=== PATIENT | male | born 1945 | race Two or more races ===

== ENCOUNTER 2017-01-29 19:43 | Inpatient (IN) | payer MEDICARE ==
[~2017-01-29] VITALS: Ht 182.9 cm; Wt 65.3 kg
--- NOTE | 2017-01-29 20:45 | NUR ---
ADMITTED A 71 Y/O WHITE MALE FROM [facility], ON 5150 DTO AND GD, BASED ON HOLD, PATIENT IS CONFUSED, DISORGANIZED, DISORIENTED, POOR HISTORIAN, ERRATIC AND AGGRESSIVE BEHAVIOR. PATIENT ADMITTING DX. PSYCHOSIS AND MEDICAL DX. HPTN, HYPERLIPIDEMIA, HEP C AND IRON DEFICIENCY ANEMIA. UPON FACE TO FACE EVALUATION, PATIENT APPEARED CONFUSED, DISORIENTED, DISORGANIZED, FOCUSED ON WANTING TO GO HOME, AMBULATORY AND WALKING ON THE HALLWAY, AGGRESSIVE, COMBATIVE, VERY UNCOOPERATIVE, REFUSED BODY CHECK, REFUSED V/S CHECKING. PATIENT WAS VERY GUARDED AND PARANOID. NO SOB, NO ACUTE DISTRESS, BREATHING EVEN AND UNLABORED, NO S/S OF PAIN AND DISCOMFORT. HARD TO REDIRECT THE PATIENT AND ORIENTED TO REALITY. ALL BELONGINGS INSPECTED. NO FAMILY ON FILE TO BE INFORMED. NOTIFIED DR. EVANS AND DR. DUGAN TO RECONCILE THE MEDICATION. WILL CONTINUE TO MONITOR [id number] FOR SAFETY
[2017-01-29] MEDS ORDERED: MAG HYDROX/AL HYDROX/SIMETH 30 ML UDC PO PRN (21:00)
[2017-01-29] MEDS ORDERED: MAGNESIUM HYDROXIDE 30 ML UDC PO PRN (21:00)
[2017-01-29] MEDS ORDERED: QUET25TA PO ×2 (23:38)
[2017-01-29] MEDS ORDERED: DONE10TA44 PO (23:38)
[2017-01-29] MEDS ORDERED: ROSU10TA25 PO (23:38)
[2017-01-29] MEDS ORDERED: TAMS0.4C34 PO (23:38)
[2017-01-29] MEDS ORDERED: GUAI5SYR PO (23:38)
[2017-01-29] MEDS ORDERED: LACT10SO PO (23:38)
[2017-01-29] MEDS ORDERED: RIFA550T PO (23:38)
[2017-01-30] MEDS ORDERED: TEMAZEPAM 7.5 MG CAPSULE ONE (00:58)
[2017-01-30] MEDS: TEMAZEPAM 7.5 MG CAPSULE PO PRN (01:09)
[2017-01-30 07:56] LABS: ALANINE AMINOTRANSFERASE 40 U/L (12-78); ALBUMIN 3.3 g/dL (3.4-5.0); ALKALINE PHOSPHATASE 84 U/L (46-116); ASPARTATE AMINOTRANSFERASE 48 U/L (15-37); BILIRUBIN,TOTAL 0.4 mg/dL (0.2-1.0); CALCIUM, SERUM 9.7 mg/dL (8.5-10.1); CARBON DIOXIDE 28 mmol/L (21-32); CHLORIDE 106 mmol/L (98-107); CREATININE 1.9 mg/dL (0.6-1.3); GLUCOSE 108 mg/dL (74-106); POTASSIUM 3.6 mmol/L (3.5-5.1); SODIUM SERUM 142 mmol/L (136-145); TOTAL PROTEIN, SERUM 7.2 g/dL (6.4-8.2); UREA NITROGEN, BLOOD 16 mg/dL (7-18)
[2017-01-30] MEDS: LORAZEPAM 0.5 MG TABLET PO PRN (11:20)
--- NOTE | 2017-01-30 11:33 | NUR ---
RN-CO: Patient is going from room to room, touching patient's belongings. Needs constant redirections. 1:1 sitter ordered for safety. Patient is also high fall risk.
[2017-01-30 12:57] LABS: CHOLESTEROL 164 mg/dL (<200); HDL CHOLESTEROL 41 mg/dL (40-60); LDL 95 mg/dL (0-99); TRIGLYCERIDES 145 mg/dL (30-150)
--- NOTE | 2017-01-30 14:21 | NUR ---
JUAN DIEGOCO: SEEN AND EXAMINED BY DR MERRITT.
[2017-01-30 16:10] VITALS: BP 127/86
[2017-01-30] MEDS: RIFAXIMIN 550 MG TABLET PO SCH (17:28)
[2017-01-30] MEDS: LACTULOSE 10 G/15 ML UDC (PYXIS) PO SCH (17:30)
[2017-01-30] MEDS: QUETIAPINE FUMARATE 25 MG TABLET PO SCH (17:31)
[2017-01-30] MEDS: DIVALPROEX SODIUM 250 MG TABLET.DR PO SCH (17:31)
[2017-01-30 19:47] VITALS: BP 120/83
[2017-01-30] MEDS: TAMSULOSIN 0.4 MG CAP.SR.24H PO SCH (21:47)
--- NOTE | 2017-01-31 00:49 | NUR ---
Patient in bed most of the evening no agitation noted calm and cooprative 1:1 sitter by the bedside cont to monitor.
--- NOTE | 2017-01-31 07:30 | NUR ---
RN NOTE PATIENT HAD FALL NEAR DOORWAY OF ROOM. PATIENT WAS WALKING AND TRIPPED. VITALS TAKE BP 93/65. PATIENT ASSESSED, PATIENT HAS SKIN TEAR NOTED ON LEFT UPPER FOREARM/ELBOW AREA. SKIN TEAR CLEANED, AND COVERED WITH GAUZE. PATIENT NOW IN BED RESTING Addendum: 01/31/17 at 0839 by CAM BURROUGHS RN [id number]
--- NOTE | 2017-01-31 08:28 | NUR ---
CALLED MILAGRO PRADHAN AT [phone] PERSON TO NOTIFY IN THE FACE SHEET AND WAS NOTIFIED ABOUT THE FALL INCIDENT.
[2017-01-31] MEDS: QUETIAPINE FUMARATE 25 MG TABLET PO SCH ×3 (10:41→17:33)
[2017-01-31] MEDS: LACTULOSE 10 G/15 ML UDC (PYXIS) PO SCH ×2 (10:41→17:26)
[2017-01-31] MEDS: DIVALPROEX SODIUM 250 MG TABLET.DR PO SCH ×3 (10:42→17:33)
[2017-01-31] MEDS: RIFAXIMIN 550 MG TABLET PO SCH ×2 (10:42→17:26)
--- NOTE | 2017-01-31 11:19 | NUR ---
DR MERRITT MADE AWARE OF PT'S FALL WHICH RESULTED IN A SKIN TEAR. HEAD TO TOE ASSESSMENT COMPLETED. NEURO CHECK COMPLETED. INCIDENT REPORT COMPLETED BY PRIOR NURSE. PT REMAINS AT BASELINE. PT DENIES ANY PAIN OR DISCOMFORT. PER DR. MERRITT "ORDER TRIPLE ABX BID AND CLEANSE SKIN TEAR". NO XRAYS ORDERED AT THIS TIME. WILL CARRY OUT ORDERS AND CONTINUE TO MONITOR.
--- NOTE | 2017-01-31 12:04 | NUR ---
DR. MARIE COVERING FOR DR. EVANS MADE AWARE OF THE FALL INCIDENT.
[2017-01-31] MEDS: NEOMY SULF/BACITRAC ZN/POLY 15 GM TUBE TP SCH ×2 (12:19→17:24)
[2017-01-31 16:00] VITALS: BP 115/61
[2017-01-31 20:00] VITALS: BP 122/56
[2017-01-31] MEDS: ATORVASTATIN 10 MG TABLET PO SCH (22:59)
[2017-01-31] MEDS: TAMSULOSIN 0.4 MG CAP.SR.24H PO SCH (22:59)
[2017-02-01] MEDS: NEOMY SULF/BACITRAC ZN/POLY 15 GM TUBE TP SCH ×2 (06:43→16:24)
[2017-02-01 08:00] VITALS: BP 126/67
[2017-02-01] MEDS: LACTULOSE 10 G/15 ML UDC (PYXIS) PO SCH ×2 (08:22→16:28)
[2017-02-01] MEDS: RIFAXIMIN 550 MG TABLET PO SCH ×2 (08:23→16:28)
[2017-02-01] MEDS: QUETIAPINE FUMARATE 25 MG TABLET PO SCH ×3 (08:23→16:28)
[2017-02-01] MEDS: DIVALPROEX SODIUM 125 MG CAP.SPRINK PO SCH ×3 (08:36→16:28)
[2017-02-01 11:35] LABS: EOSINOPHILS # (AUTO) 0.1 /CMM (0.0-0.7); EOSINOPHILS % (AUTO) 0.7 % (0.0-6.0); HEMATOCRIT 27 % (39-51); HEMOGLOBIN 8.7 g/dL (13.5-17.5); LYMPHOCYTES # (AUTO) 0.5 /CMM (0.8-4.8); LYMPHOCYTES % (AUTO) 4.5 % (20.0-44.0); MEAN CORPUSCULAR HEMOGLOBIN 33 PG (26.0-33.0); MEAN CORPUSCULAR HGB CONC 33 g/dl (31.0-36.0); MEAN CORPUSCULAR VOLUME 101 fL (80-96); MONOCYTES # (AUTO) 0.9 /CMM (0.1-1.30); MONOCYTES % (AUTO) 8.9 % (2.0-12.0); NEUTROPHILS # (AUTO) 8.8 /CMM (1.8-8.9); NEUTROPHILS % (AUTO) 85.9 % (43.0-81.0); PLATELET COUNT (AUTO) 241 /CMM (150-450); RDW COEFFICIENT OF VARIATION 15.1 (11.5-15.0); RED BLOOD CELL COUNT(AUTO) 2.64 MIL/uL (4.5-6.0); WHITE BLOOD COUNT (AUTO) 10.3 K/uL (4.3-11.0)
[2017-02-01 12:25] LABS: CALCIUM, SERUM 9.4 mg/dL (8.5-10.1); CARBON DIOXIDE 27 mmol/L (21-32); CHLORIDE 111 mmol/L (98-107); CREATININE 1.8 mg/dL (0.6-1.3); GLUCOSE 117 mg/dL (74-106); MAGNESIUM 1.8 mg/dL (1.8-2.4); PHOSPHORUS 2.8 mg/dL (2.5-4.9); POTASSIUM 3.3 mmol/L (3.5-5.1); SODIUM SERUM 146 mmol/L (136-145); UREA NITROGEN, BLOOD 15 mg/dL (7-18)
[2017-02-01] MEDS ORDERED: POTASSIUM CHLORIDE 20 MEQ TAB.PRT.SR PO ONE (15:30)
--- NOTE | 2017-02-01 15:45 | NUR ---
Initial Discharge Plan: Pt resides at [address] [place] [address] and lives by himself, per Dilan Greg (pts neighbor) report. SW called pts cashier and salesperson, Dilan Garza (pts neighbor) to gather collateral information. Pt was not able to provide information to complete his assessment. Per , believes that pt has no family however he suggested to look in the [facility]. Mr. Garza agreed to be of help for pt during discharge planning. SW will follow up. SW will ensure pt is properly and safely discharged.
[2017-02-01 16:06] LABS: IRON, SERUM 11 ug/dl (50-175); TOTAL IRON BINDING CAPACITY 191 ug/dl (250-450)
[2017-02-01 16:09] VITALS: BP 120/73
[2017-02-01 20:00] VITALS: BP 111/71
[2017-02-01] MEDS: TAMSULOSIN 0.4 MG CAP.SR.24H PO SCH (21:44)
[2017-02-01] MEDS: ATORVASTATIN 10 MG TABLET PO SCH (21:45)
[2017-02-02] MEDS: NEOMY SULF/BACITRAC ZN/POLY 15 GM TUBE TP SCH ×2 (06:57→18:17)
[2017-02-02 08:09] VITALS: BP 116/59
[2017-02-02] MEDS: LACTULOSE 10 G/15 ML UDC (PYXIS) PO SCH ×2 (09:36→18:10)
[2017-02-02] MEDS: DIVALPROEX SODIUM 125 MG CAP.SPRINK PO SCH ×3 (09:36→18:11)
[2017-02-02] MEDS: QUETIAPINE FUMARATE 25 MG TABLET PO SCH ×3 (09:37→18:11)
[2017-02-02] MEDS: RIFAXIMIN 550 MG TABLET PO SCH ×2 (09:37→18:11)
[2017-02-02] MEDS: ACETAMINOPHEN 325 MG TABLET PO PRN (12:49)
--- NOTE | 2017-02-02 12:49 | NUR ---
RN NOTES ADMINISTERED TYLENOL 650 MG PO PRN FOR LEFT FLANK PAIN, V/S TAKEN 124/69, P-111, PATIENT CONFUSED. CONTINUED MONITORING.
[2017-02-02 16:07] VITALS: BP 99/57
[2017-02-02 16:30] VITALS: BP 104/57
[2017-02-02 20:00] VITALS: BP 107/52
[2017-02-02] MEDS: TAMSULOSIN 0.4 MG CAP.SR.24H PO SCH (21:39)
[2017-02-02] MEDS: TEMAZEPAM 7.5 MG CAPSULE PO PRN (21:39)
[2017-02-02] MEDS: ATORVASTATIN 10 MG TABLET PO SCH (21:39)
[2017-02-03] MEDS: NEOMY SULF/BACITRAC ZN/POLY 15 GM TUBE TP SCH ×2 (06:07→16:29)
[2017-02-03 08:00] VITALS: BP 115/63
[2017-02-03] MEDS: LACTULOSE 10 G/15 ML UDC (PYXIS) PO SCH ×2 (10:01→16:27)
[2017-02-03] MEDS: QUETIAPINE FUMARATE 25 MG TABLET PO SCH ×3 (10:02→16:26)
[2017-02-03] MEDS: RIFAXIMIN 550 MG TABLET PO SCH ×2 (10:02→16:26)
[2017-02-03] MEDS: DIVALPROEX SODIUM 125 MG CAP.SPRINK PO SCH ×3 (10:02→16:26)
[2017-02-03 16:08] VITALS: BP 98/69
[2017-02-03 19:51] VITALS: BP 111/61
[2017-02-03] MEDS: ACETAMINOPHEN 325 MG TABLET PO PRN (21:10)
--- NOTE | 2017-02-03 21:10 | NUR ---
RN NOTES ADMINISTERED TYLENOL 650 MG PO PRN FOR GENERALIZED BODY PAIN PAIN, V/S WNL, PATIENT CONFUSED. CONTINUED MONITORING.
[2017-02-03] MEDS: ATORVASTATIN 10 MG TABLET PO SCH (21:59)
[2017-02-03] MEDS: TAMSULOSIN 0.4 MG CAP.SR.24H PO SCH (21:59)
[2017-02-04] MEDS: TEMAZEPAM 7.5 MG CAPSULE PO PRN (00:35)
[2017-02-04] MEDS ORDERED: Z GUARD REMEDY 2 OZ OINT TP PRN (01:30)
[2017-02-04] MEDS: NEOMY SULF/BACITRAC ZN/POLY 15 GM TUBE TP SCH ×2 (06:14→16:24)
[2017-02-04 07:14] LABS: EOSINOPHILS % (AUTO) 0.1 % (0.0-6.0); HEMATOCRIT 29 % (39-51); HEMOGLOBIN 9.5 g/dL (13.5-17.5); LYMPHOCYTES # (AUTO) 0.5 /CMM (0.8-4.8); LYMPHOCYTES % (AUTO) 4.8 % (20.0-44.0); MEAN CORPUSCULAR HEMOGLOBIN 33 PG (26.0-33.0); MEAN CORPUSCULAR HGB CONC 33 g/dl (31.0-36.0); MEAN CORPUSCULAR VOLUME 101 fL (80-96); MONOCYTES # (AUTO) 1.1 /CMM (0.1-1.30); MONOCYTES % (AUTO) 10.7 % (2.0-12.0); NEUTROPHILS # (AUTO) 8.4 /CMM (1.8-8.9); NEUTROPHILS % (AUTO) 84.4 % (43.0-81.0); PLATELET COUNT (AUTO) 209 /CMM (150-450); RDW COEFFICIENT OF VARIATION 14.8 (11.5-15.0); RED BLOOD CELL COUNT(AUTO) 2.89 MIL/uL (4.5-6.0); WHITE BLOOD COUNT (AUTO) 9.9 K/uL (4.3-11.0)
--- NOTE | 2017-02-04 07:22 | NUR ---
GPS RN NOTES PT. NOTED REDNESS ON SACRAL AREA PICTURE TAKEN ,PRINTOUT NON CLEAR DARK , 2ND TIME TRYING TO RETAKE THE PICTURE BUT UN ABLE TO RETAKE THE PICTURE DUE TO, PT. REFUSED ,PT. WAS AGGRESIVE YELLING SCREAMING .
[2017-02-04 07:33] LABS: ALANINE AMINOTRANSFERASE 44 U/L (12-78); ALBUMIN 2.4 g/dL (3.4-5.0); ALKALINE PHOSPHATASE 68 U/L (46-116); ASPARTATE AMINOTRANSFERASE 68 U/L (15-37); BILIRUBIN,TOTAL 0.3 mg/dL (0.2-1.0); CALCIUM, SERUM 8.8 mg/dL (8.5-10.1); CARBON DIOXIDE 30 mmol/L (21-32); CHLORIDE 112 mmol/L (98-107); GLUCOSE 99 mg/dL (74-106); PHOSPHORUS 3.4 mg/dL (2.5-4.9); POTASSIUM 4.1 mmol/L (3.5-5.1); SODIUM SERUM 149 mmol/L (136-145); TOTAL PROTEIN, SERUM 6.5 g/dL (6.4-8.2); UREA NITROGEN, BLOOD 25 mg/dL (7-18)
[2017-02-04 08:00] VITALS: BP 121/58
[2017-02-04] MEDS: DIVALPROEX SODIUM 125 MG CAP.SPRINK PO SCH ×3 (09:55→16:23)
[2017-02-04] MEDS: LACTULOSE 10 G/15 ML UDC (PYXIS) PO SCH ×2 (09:55→16:23)
[2017-02-04] MEDS: RIFAXIMIN 550 MG TABLET PO SCH ×2 (09:56→16:23)
[2017-02-04] MEDS: Z GUARD REMEDY 2 OZ OINT TP SCH ×2 (09:56→21:10)
[2017-02-04] MEDS: QUETIAPINE FUMARATE 25 MG TABLET PO SCH ×3 (09:56→16:23)
[2017-02-04 16:00] VITALS: BP 120/58
[2017-02-04] MEDS: TAMSULOSIN 0.4 MG CAP.SR.24H PO SCH (21:10)
[2017-02-04] MEDS: ATORVASTATIN 10 MG TABLET PO SCH (21:11)
[2017-02-04 21:47] VITALS: BP 135/61
[2017-02-05] MEDS: NEOMY SULF/BACITRAC ZN/POLY 15 GM TUBE TP SCH ×2 (06:27→17:09)
[2017-02-05 08:00] VITALS: BP 107/56
[2017-02-05] MEDS: LACTULOSE 10 G/15 ML UDC (PYXIS) PO SCH ×2 (08:57→17:04)
[2017-02-05] MEDS: DIVALPROEX SODIUM 125 MG CAP.SPRINK PO SCH ×3 (08:57→17:04)
[2017-02-05] MEDS: QUETIAPINE FUMARATE 25 MG TABLET PO SCH ×3 (08:57→17:04)
[2017-02-05] MEDS: RIFAXIMIN 550 MG TABLET PO SCH ×2 (08:58→17:04)
[2017-02-05] MEDS: Z GUARD REMEDY 2 OZ OINT TP SCH ×2 (09:00→21:22)
--- NOTE | 2017-02-05 09:00 | NUR ---
[id number]: THE CHROMIUM PLATER INFORMED THE DOORMAKER REGARDING A SKIN TEAR ON BUTTOCKS AREA.
[2017-02-05] MEDS: LORAZEPAM 0.5 MG TABLET PO PRN (09:48)
--- NOTE | 2017-02-05 09:48 | NUR ---
[id number]: GAVE ATIVAN 0.5 MG PO DUE TO SEVERE ANXIETY AND UPON PT REQUEST AND WILL CONTINUE TO MONITOR FOR EFFECTIVENESS OF MEDICATION
--- NOTE | 2017-02-05 10:00 | NUR ---
[id number]: CHANGED PT EVERY 2 HOURS AND REPOSITION. PT IS RESISTANT TO CARE AT TIMES, UNCOOPERATIVE WITH STAFF. KEPT CLEAN AND DRY.
--- NOTE | 2017-02-05 11:00 | NUR ---
[id number]: NOTIFIED THE WOUND NURSE TO OBSERVE PT'S SKIN TEAR ON BUTTOCKS AREA.
--- NOTE | 2017-02-05 13:00 | NUR ---
[id number]: NOTIFIED DR. SALMA MONROE REGARDING STAGE 2 PRESSURE SORE. ORDERED WOUND CONSULT AND PT EVALUATION. CALLED FAMILY NAMED MILAGRO PRADHAN [phone]. CHARGE NURSE MADE AWARE.
--- NOTE | 2017-02-05 13:50 | NUR ---
WOUND CARE CONSULT: PT PRESENTS WITH STAGE 2 ULCER TO SACRUM AND BRUISING WITH DRY ABRASIONS TO ARMS. PT IS INCONTINENT WITH CURRENT ANNIE SCORE OF 12. PT UNCOOPERATIVE AT TIMES. ALL SKIN PROTECTION AND WOUND RECOMMENDATIONS DISCUSSED WITH NURSING STAFF. SKIN TO BE KEPT CLEAN AND DRY. PT TO BE TURNED AND REPOSITIONED EVERY 2 HRS PT CONDITION PERMITS, HEELS FLOATED. FIRST STEP MATTRESS ORDERED. WILL SEE PRN. IN AGREEMENT WITH PLAN OF CARE.
[2017-02-05] MEDS ORDERED: HYDROGEL DRESSING 90 GM TUBE TP PRN (14:00)
--- NOTE | 2017-02-05 14:14 | NUR ---
[id number]: CALLED [facility] [employer] FOR SPECIALITY MATTRESS TO BE DELIVERED TODAY OR TOMORROW THE LATEST.
[2017-02-05] MEDS: HYDROGEL DRESSING 90 GM TUBE TP SCH (15:17)
[2017-02-05 16:04] VITALS: BP 118/56
--- NOTE | 2017-02-05 17:00 | NUR ---
Discharge Planning: YAJAIRA faxed inquiries to [facility], and [facility] . YAJAIRA will follow up.
--- NOTE | 2017-02-05 19:30 | NUR ---
GPS RN NOTE, RECEIVED PATIENT AWAKE AND IN BED NO S/S OR COMPLAINTS OF PAIN AT THIS TIME. PATIENT IS DISPLAYING NO S/S OF APPARENT DISTRESS AT THIS TIME. PATIENT BREATHING IS UNLABORED WITH EQUAL RISE AND FALL OF THE CHEST. PATIENT IS ALERT AND ORIENTED X 1 ON ROOM AIR WITH A SPOO2 94 %. PATIENT HAS ONE TO ONE SITTER FOR HIGH FALL RISK. PATIENT IS SELECTIVE WITH MEDICATION, CONFUSED, EASILY AGITATED, ANXIOUS AT TIMES, UNCOOPERATIVE, DISORGANIZED, AND NEEDS REORIENTATION. PATIENT DENIES SUICIDE IDEATIONS AND HOMICIDAL IDEATIONS AT THIS TIME. PATIENT ASSISTED WITH TURNING AND REPOSITIONING Q2HR AND PRN FOR COMFORT AND CIRCULATION. PATIENT HAS NO NEEDS AT THIS TIME. PATIENT EDUCATED ON THE USE OF THE CALL TRUJILLO. PATIENT BED SIDE RAILS UP X 2 FOR SAFETY. PATIENT BED IS LOCKED AND LOW WILL CONTINUE TO MONITOR AND MAINTAIN SAFETY Q15 MIN WITH THE HELP OF STAFF.
[2017-02-05 19:49] VITALS: BP 129/62
[2017-02-05] MEDS: TAMSULOSIN 0.4 MG CAP.SR.24H PO SCH (21:22)
[2017-02-05] MEDS: ATORVASTATIN 10 MG TABLET PO SCH (21:22)
[2017-02-06] MEDS: NEOMY SULF/BACITRAC ZN/POLY 15 GM TUBE TP SCH ×2 (06:56→16:49)
[2017-02-06 08:00] VITALS: BP 114/68
[2017-02-06 08:08] LABS: ALANINE AMINOTRANSFERASE 49 U/L (12-78); ALBUMIN 2.3 g/dL (3.4-5.0); ALKALINE PHOSPHATASE 77 U/L (46-116); ASPARTATE AMINOTRANSFERASE 72 U/L (15-37); BILIRUBIN,TOTAL 0.4 mg/dL (0.2-1.0); CALCIUM, SERUM 8.9 mg/dL (8.5-10.1); CARBON DIOXIDE 30 mmol/L (21-32); CHLORIDE 113 mmol/L (98-107); CREATININE 2.2 mg/dL (0.6-1.3); GLUCOSE 95 mg/dL (74-106); POTASSIUM 3.8 mmol/L (3.5-5.1); SODIUM SERUM 149 mmol/L (136-145); TOTAL PROTEIN, SERUM 6.8 g/dL (6.4-8.2); UREA NITROGEN, BLOOD 37 mg/dL (7-18)
[2017-02-06 08:15] LABS: EOSINOPHILS % (AUTO) 0.1 % (0.0-6.0); HEMATOCRIT 30 % (39-51); HEMOGLOBIN 9.9 g/dL (13.5-17.5); LYMPHOCYTES # (AUTO) 0.6 /CMM (0.8-4.8); LYMPHOCYTES % (AUTO) 6.3 % (20.0-44.0); MEAN CORPUSCULAR HEMOGLOBIN 33 PG (26.0-33.0); MEAN CORPUSCULAR HGB CONC 33 g/dl (31.0-36.0); MEAN CORPUSCULAR VOLUME 100 fL (80-96); MONOCYTES # (AUTO) 0.8 /CMM (0.1-1.30); NEUTROPHILS # (AUTO) 8.7 /CMM (1.8-8.9); NEUTROPHILS % (AUTO) 85.6 % (43.0-81.0); PLATELET COUNT (AUTO) 196 /CMM (150-450); RDW COEFFICIENT OF VARIATION 15.2 (11.5-15.0); WHITE BLOOD COUNT (AUTO) 10.1 K/uL (4.3-11.0)
[2017-02-06 08:35] LABS: VALPROIC ACID 52 ug/mL (50-100)
[2017-02-06] MEDS: QUETIAPINE FUMARATE 25 MG TABLET PO SCH ×3 (08:49→16:47)
[2017-02-06] MEDS: LACTULOSE 10 G/15 ML UDC (PYXIS) PO SCH ×2 (08:49→16:47)
[2017-02-06] MEDS: RIFAXIMIN 550 MG TABLET PO SCH ×2 (08:49→16:47)
[2017-02-06] MEDS: Z GUARD REMEDY 2 OZ OINT TP SCH ×2 (08:49→21:24)
[2017-02-06] MEDS: DIVALPROEX SODIUM 125 MG CAP.SPRINK PO SCH ×3 (08:49→16:47)
[2017-02-06] MEDS: HYDROGEL DRESSING 90 GM TUBE TP SCH (08:58)
--- NOTE | 2017-02-06 09:30 | NUR ---
GPS/RN-NOTES DID WOUND TREATMENT ORDERED.
--- NOTE | 2017-02-06 14:23 | NUR ---
Discharge Planning: YAJAIRA arranged for Emily from [facility], Admissions to assess pt on this day and evaluate his appropriateness for the facility. Per Emily she will discuss pt with facility admissions and get back to with an update. YAJAIRA will follow up.
[2017-02-06 15:54] VITALS: BP 126/68
--- NOTE | 2017-02-06 18:22 | NUR ---
RN-CO: BRIDGET ISABEL BURGLAR ALARM INSTALLER SEEN AND EXAMINED PATIENT WITH ORDER OF D5 1/2 NS BOLUS. NOTED.
--- NOTE | 2017-02-06 18:30 | NUR ---
GPS/RN-NOTES SCOUT PROFESSIONAL SPORTS MAAME SEEN THE PATIENT WITH VERBAL ORDER OF D5 1/2 NS 500ML BOLUS. CHARGE NURSE NOTED AND CARRIED OUT. IV SITE ON LFA. INFUSING WELL. ENDORSE TO NIGHT NURSE FOR CONTINUITY OF CARE.
[2017-02-06] MEDS ORDERED: IV D5/0.45 NACL 500 ML IV ONE (19:00)
[2017-02-06] MEDS ORDERED: IV D5/0.45 NACL 1,000 ML IV ONE (19:30)
--- NOTE | 2017-02-06 19:30 | NUR ---
GPS RN NOTE, RECEIVED PATIENT AWAKE AND IN BED NO S/S OR COMPLAINTS OF PAIN AT THIS TIME. PATIENT IS DISPLAYING NO S/S OF APPARENT DISTRESS AT THIS TIME. PATIENT BREATHING IS UNLABORED WITH EQUAL RISE AND FALL OF THE CHEST. PATIENT IS ALERT AND ORIENTED X 1 ON ROOM AIR WITH A SPOO2 94 %. PATIENT HAS ONE TO ONE SITTER FOR HIGH FALL RISK. IVF D5 1/2 NS @ BOLUS 500ML INFUSING WELL INTO LEFT FOREARM 24 GAUGE THAT IS INTACT, PATENT, AND FLUSHING WELL WITH NO S/S OF INFILTRATION. PATIENT IS SELECTIVE WITH MEDICATION, CONFUSED, EASILY AGITATED, ANXIOUS AT TIMES, UNCOOPERATIVE, DISORGANIZED, AND NEEDS REORIENTATION. PATIENT DENIES SUICIDE IDEATIONS AND HOMICIDAL IDEATIONS AT THIS TIME. PATIENT ASSISTED WITH TURNING AND REPOSITIONING Q2HR AND PRN FOR COMFORT AND CIRCULATION. PATIENT HAS NO NEEDS AT THIS TIME. PATIENT EDUCATED ON THE USE OF THE CALL TRUJILLO. PATIENT BED SIDE RAILS UP X 2 FOR SAFETY. PATIENT BED IS LOCKED AND LOW WILL CONTINUE TO MONITOR AND MAINTAIN SAFETY Q15 MIN WITH THE HELP OF STAFF.
[2017-02-06 20:25] VITALS: BP 103/54
[2017-02-06] MEDS: TAMSULOSIN 0.4 MG CAP.SR.24H PO SCH (21:24)
[2017-02-06] MEDS: ATORVASTATIN 10 MG TABLET PO SCH (21:24)
[2017-02-07] MEDS: NEOMY SULF/BACITRAC ZN/POLY 15 GM TUBE TP SCH ×2 (05:33→16:11)
[2017-02-07 08:00] VITALS: BP 117/55
[2017-02-07] MEDS: RIFAXIMIN 550 MG TABLET PO SCH ×2 (08:43→16:10)
[2017-02-07] MEDS: QUETIAPINE FUMARATE 25 MG TABLET PO SCH ×3 (08:43→16:10)
[2017-02-07] MEDS: DIVALPROEX SODIUM 125 MG CAP.SPRINK PO SCH ×3 (08:43→16:10)
[2017-02-07] MEDS: LACTULOSE 10 G/15 ML UDC (PYXIS) PO SCH ×2 (08:43→16:10)
[2017-02-07] MEDS: Z GUARD REMEDY 2 OZ OINT TP SCH ×2 (09:09→21:06)
[2017-02-07] MEDS: HYDROGEL DRESSING 90 GM TUBE TP SCH (09:11)
--- NOTE | 2017-02-07 11:26 | NUR ---
Discharge Planning: YAJAIRA received a message from Sunny from [facility] stating that pt was accepted to facility when he is ready for discharge. YAJAIRA will follow up to ensure pt is properly and safely discharged.
--- NOTE | 2017-02-07 13:59 | NUR ---
GPS RN NOTE: YANIQUE MONROE NOTIFIED PT CONDITION YESTERDAY LABS , PT REFUSED LABS FOR TODAY REFUSED BREAKFAST ,LUNCH . NO NEW ORDERS AT THIS TIME. WOUND TX DONE PER ORDER PT TURNED REPOSITION Q 2 HR WITH HELP OF 1:1 SITTER WILL CONTINUE MONITORING
[2017-02-07 16:00] VITALS: BP 129/58
[2017-02-07 20:00] VITALS: BP 119/62
[2017-02-07] MEDS: LORAZEPAM 0.5 MG TABLET PO PRN (20:09)
[2017-02-07] MEDS: TAMSULOSIN 0.4 MG CAP.SR.24H PO SCH (21:25)
[2017-02-07] MEDS: ATORVASTATIN 10 MG TABLET PO SCH (21:25)
[2017-02-07] MEDS: TEMAZEPAM 7.5 MG CAPSULE PO PRN (21:25)
[2017-02-08] MEDS: NEOMY SULF/BACITRAC ZN/POLY 15 GM TUBE TP SCH ×2 (06:55→17:09)
[2017-02-08 08:00] VITALS: BP 108/50
[2017-02-08 08:02] LABS: BASOPHILS % (AUTO) 0.1 % (0.0-2.0); EOSINOPHILS # (AUTO) 0.1 /CMM (0.0-0.7); EOSINOPHILS % (AUTO) 1.4 % (0.0-6.0); HEMATOCRIT 26 % (39-51); HEMOGLOBIN 8.8 g/dL (13.5-17.5); LYMPHOCYTES # (AUTO) 0.6 /CMM (0.8-4.8); LYMPHOCYTES % (AUTO) 10.3 % (20.0-44.0); MEAN CORPUSCULAR HEMOGLOBIN 33 PG (26.0-33.0); MEAN CORPUSCULAR HGB CONC 34 g/dl (31.0-36.0); MEAN CORPUSCULAR VOLUME 98 fL (80-96); MONOCYTES # (AUTO) 0.6 /CMM (0.1-1.30); MONOCYTES % (AUTO) 11.4 % (2.0-12.0); NEUTROPHILS # (AUTO) 4.1 /CMM (1.8-8.9); NEUTROPHILS % (AUTO) 76.8 % (43.0-81.0); PLATELET COUNT (AUTO) 217 /CMM (150-450); RDW COEFFICIENT OF VARIATION 13.9 (11.5-15.0); RED BLOOD CELL COUNT(AUTO) 2.67 MIL/uL (4.5-6.0); WHITE BLOOD COUNT (AUTO) 5.4 K/uL (4.3-11.0)
[2017-02-08] MEDS: LACTULOSE 10 G/15 ML UDC (PYXIS) PO SCH ×2 (08:29→17:08)
[2017-02-08] MEDS: QUETIAPINE FUMARATE 25 MG TABLET PO SCH ×3 (08:30→17:08)
[2017-02-08] MEDS: RIFAXIMIN 550 MG TABLET PO SCH ×2 (08:30→17:08)
[2017-02-08] MEDS: HYDROGEL DRESSING 90 GM TUBE TP SCH (08:30)
[2017-02-08] MEDS: DIVALPROEX SODIUM 125 MG CAP.SPRINK PO SCH ×3 (08:31→17:08)
[2017-02-08 08:48] LABS: CARBON DIOXIDE 29 mmol/L (21-32); CHLORIDE 114 mmol/L (98-107); CREATININE 1.8 mg/dL (0.6-1.3); GLUCOSE 91 mg/dL (74-106); POTASSIUM 3.4 mmol/L (3.5-5.1); SODIUM SERUM 150 mmol/L (136-145); UREA NITROGEN, BLOOD 29 mg/dL (7-18)
[2017-02-08] MEDS: Z GUARD REMEDY 2 OZ OINT TP SCH ×2 (08:58→21:20)
[2017-02-08] MEDS ORDERED: POTASSIUM CHLORIDE 20 MEQ TAB.PRT.SR PO SCH (10:30)
[2017-02-08 16:00] VITALS: BP 125/64
[2017-02-08 20:00] VITALS: BP 117/62
[2017-02-08] MEDS ORDERED: IV D5W 500 ML IV ONE (20:00)
[2017-02-08] MEDS: ATORVASTATIN 10 MG TABLET PO SCH (21:19)
[2017-02-08] MEDS: TEMAZEPAM 7.5 MG CAPSULE PO PRN (21:19)
[2017-02-08] MEDS: TAMSULOSIN 0.4 MG CAP.SR.24H PO SCH (21:19)
[2017-02-09] MEDS: NEOMY SULF/BACITRAC ZN/POLY 15 GM TUBE TP SCH ×2 (06:01→16:37)
[2017-02-09 08:00] VITALS: BP 108/61
[2017-02-09 08:26] LABS: BASOPHILS % (AUTO) 0.1 % (0.0-2.0); EOSINOPHILS # (AUTO) 0.1 /CMM (0.0-0.7); EOSINOPHILS % (AUTO) 1.5 % (0.0-6.0); HEMATOCRIT 30 % (39-51); HEMOGLOBIN 10.2 g/dL (13.5-17.5); LYMPHOCYTES # (AUTO) 0.6 /CMM (0.8-4.8); LYMPHOCYTES % (AUTO) 11.9 % (20.0-44.0); MEAN CORPUSCULAR HEMOGLOBIN 33 PG (26.0-33.0); MEAN CORPUSCULAR HGB CONC 34 g/dl (31.0-36.0); MEAN CORPUSCULAR VOLUME 98 fL (80-96); MONOCYTES # (AUTO) 0.7 /CMM (0.1-1.30); MONOCYTES % (AUTO) 13.8 % (2.0-12.0); NEUTROPHILS # (AUTO) 3.8 /CMM (1.8-8.9); NEUTROPHILS % (AUTO) 72.7 % (43.0-81.0); PLATELET COUNT (AUTO) 277 /CMM (150-450); RDW COEFFICIENT OF VARIATION 14.1 (11.5-15.0); RED BLOOD CELL COUNT(AUTO) 3.09 MIL/uL (4.5-6.0); WHITE BLOOD COUNT (AUTO) 5.2 K/uL (4.3-11.0)
[2017-02-09 08:43] LABS: CALCIUM, SERUM 9.2 mg/dL (8.5-10.1); CHLORIDE 112 mmol/L (98-107); CREATININE 1.7 mg/dL (0.6-1.3); GLUCOSE 103 mg/dL (74-106); MAGNESIUM 1.9 mg/dL (1.8-2.4); PHOSPHORUS 2.6 mg/dL (2.5-4.9); POTASSIUM 3.5 mmol/L (3.5-5.1); SODIUM SERUM 148 mmol/L (136-145); UREA NITROGEN, BLOOD 20 mg/dL (7-18)
[2017-02-09 09:05] LABS: CARBON DIOXIDE 26 mmol/L (21-32)
[2017-02-09] MEDS: HYDROGEL DRESSING 90 GM TUBE TP SCH (09:10)
[2017-02-09] MEDS: RIFAXIMIN 550 MG TABLET PO SCH ×2 (09:10→16:36)
[2017-02-09] MEDS: QUETIAPINE FUMARATE 25 MG TABLET PO SCH ×3 (09:10→16:36)
[2017-02-09] MEDS: Z GUARD REMEDY 2 OZ OINT TP SCH ×2 (09:10→21:53)
[2017-02-09] MEDS: DIVALPROEX SODIUM 125 MG CAP.SPRINK PO SCH ×3 (09:11→16:36)
[2017-02-09] MEDS: LACTULOSE 10 G/15 ML UDC (PYXIS) PO SCH ×2 (09:11→16:36)
[2017-02-09 16:00] VITALS: BP 106/61
--- NOTE | 2017-02-09 18:41 | NUR ---
GPS/RN NEW ORDERS FROM [facility]AME CLIENT REPORTING ASSOCIATE RECEIVED AND CARRIED OUT. WILL ENDORSE TO EXECUTIVE DIRECTOR CONTRACT SHOP TO FOLLOW UP.
[2017-02-09] MEDS ORDERED: IV D5W 500 ML IV ONE (19:00)
[2017-02-09 20:00] VITALS: BP 108/55
[2017-02-09] MEDS: TAMSULOSIN 0.4 MG CAP.SR.24H PO SCH (21:53)
[2017-02-09] MEDS: ATORVASTATIN 10 MG TABLET PO SCH (21:53)
[2017-02-09] MEDS: TEMAZEPAM 7.5 MG CAPSULE PO PRN (21:53)
[2017-02-10 06:56] LABS: CALCIUM, SERUM 8.8 mg/dL (8.5-10.1); CREATININE 1.7 mg/dL (0.6-1.3); GLUCOSE 108 mg/dL (74-106); UREA NITROGEN, BLOOD 20 mg/dL (7-18)
[2017-02-10 07:13] LABS: CARBON DIOXIDE 26 mmol/L (21-32); CHLORIDE 111 mmol/L (98-107); POTASSIUM 3.4 mmol/L (3.5-5.1); SODIUM SERUM 147 mmol/L (136-145)
[2017-02-10] MEDS: NEOMY SULF/BACITRAC ZN/POLY 15 GM TUBE TP SCH ×2 (07:23→17:00)
[2017-02-10 08:00] VITALS: BP 113/63
[2017-02-10] MEDS: QUETIAPINE FUMARATE 25 MG TABLET PO SCH ×4 (09:03→21:55)
[2017-02-10] MEDS: RIFAXIMIN 550 MG TABLET PO SCH ×2 (09:03→17:00)
[2017-02-10] MEDS: DIVALPROEX SODIUM 125 MG CAP.SPRINK PO SCH ×3 (09:03→17:00)
[2017-02-10] MEDS: LACTULOSE 10 G/15 ML UDC (PYXIS) PO SCH ×2 (09:03→17:00)
[2017-02-10] MEDS: Z GUARD REMEDY 2 OZ OINT TP SCH ×2 (09:04→21:54)
[2017-02-10] MEDS: HYDROGEL DRESSING 90 GM TUBE TP SCH (09:24)
[2017-02-10] MEDS ORDERED: POTASSIUM CHLORIDE 20 MEQ TAB.PRT.SR PO SCH (12:30)
[2017-02-10 15:59] VITALS: BP 122/61
[2017-02-10] MEDS ORDERED: IV D5W 500 ML IV ONE (19:00)
[2017-02-10] MEDS ORDERED: IV D5W 1,000 ML IV ONE (20:00)
[2017-02-10 21:08] VITALS: BP 97/54
[2017-02-10] MEDS ORDERED: QUETIAPINE FUMARATE 25 MG TABLET ONE (21:51)
[2017-02-10] MEDS: ATORVASTATIN 10 MG TABLET PO SCH (21:53)
[2017-02-10] MEDS: TAMSULOSIN 0.4 MG CAP.SR.24H PO SCH (21:53)
--- NOTE | 2017-02-10 21:55 | NUR ---
GPS RN NOTE, PATIENT HAS SEROQUEL 50 MG PO HS BUT OMNICELL IS OUT OF STOCK. INFORMED FIELD SERVICE POULTRY TECHNICIAN DANIELLA LOGAN BUT WAS TOLD THAT THE NIGHT LOCKER IS OUT OF STOCK FOR SEROQUEL WELL. FIELD SERVICE POULTRY TECHNICIAN DANIELLA LOGAN TOLD ME TO CALL Unique MORFIN FROM [facility] TO SEE IF SHE HAS SEROQUEL. CALLED Unique MORFIN FROM [facility] SHE SAID SHE HAS THE MEDICATION IN HER OMNICELL AND SAID THAT SINCE I AM CHARGE FOR GPS THAT I SHOULD BE THE ONE TO TAKE IT OUT FROM [facility]'S OMNICELL. TOOK SEROQUEL 50 MG OUT FROM [facility]'S OMNICELL AND GAVE IT TO JUAN JOSE RN FLOOR NURSE TO GIVE TO PATIENT ORDERED. WILL CONTINUE TO MONITOR THIS PATIENT. Addendum: 02/10/17 at 2207 by ALLYN REID RN SEROQUEL 50MG PO QID
[2017-02-10 23:00] VITALS: BP 110/65
[2017-02-11] MEDS: NEOMY SULF/BACITRAC ZN/POLY 15 GM TUBE TP SCH ×2 (06:59→17:24)
[2017-02-11 08:00] VITALS: BP 126/58
[2017-02-11] MEDS: QUETIAPINE FUMARATE 25 MG TABLET PO SCH ×4 (08:29→20:36)
[2017-02-11] MEDS: DIVALPROEX SODIUM 125 MG CAP.SPRINK PO SCH ×3 (08:29→17:21)
[2017-02-11] MEDS: RIFAXIMIN 550 MG TABLET PO SCH ×2 (08:29→17:22)
[2017-02-11] MEDS: LACTULOSE 10 G/15 ML UDC (PYXIS) PO SCH ×2 (08:29→17:21)
[2017-02-11] MEDS: Z GUARD REMEDY 2 OZ OINT TP SCH ×2 (09:10→20:47)
[2017-02-11] MEDS: HYDROGEL DRESSING 90 GM TUBE TP SCH (09:11)
[2017-02-11 11:28] LABS: CALCIUM, SERUM 8.9 mg/dL (8.5-10.1); CARBON DIOXIDE 31 mmol/L (21-32); CHLORIDE 112 mmol/L (98-107); CREATININE 1.6 mg/dL (0.6-1.3); GLUCOSE 104 mg/dL (74-106); POTASSIUM 3.9 mmol/L (3.5-5.1); SODIUM SERUM 149 mmol/L (136-145); UREA NITROGEN, BLOOD 15 mg/dL (7-18)
--- NOTE | 2017-02-11 14:00 | NUR ---
gps litigation counsel: notes clean catch urine collected. called lab, spoke to dominik re: specimen lease picker.
--- NOTE | 2017-02-11 15:00 | NUR ---
gps recycling manager: notes f/u made re: specimen moss picker, spoke to dominik (nursery laborer), stated, "someone is coming there."
[2017-02-11 15:38] LABS: APPEARANCE,URINE CLEAR (CLEAR); BILIRUBIN,URINE NEGATIVE (NEGATIVE); BLOOD, URINE NEGATIVE Ery/uL (NEGATIVE); COLOR,URINE YELLOW (YELLOW); KETONES,URINE NEGATIVE (NEGATIVE); LEUKOCYTE ESTERASE ,URINE NEGATIVE (NEGATIVE); NITRITE, URINE NEGATIVE (NEGATIVE); PH,URINE 6.5 (5.0-8.0); PROTEIN,URINE TRACE mg/dl (NEGATIVE); UGLUCOSE NEGATIVE (NEGATIVE)
[2017-02-11 15:47] LABS: CREATININE, URINE 109.7 MG/DL (30.0-125.0); URINE TOTAL PROTEIN 48.1 mg/dL (0-11.9)
[2017-02-11 15:52] LABS: BACTERIA,URINE None seen /HPF (None Seen); RBC,URINE 0-2 /HPF (0-2); SQUAMOUS EPITHELIAL CELL,UR 0-2 /HPF (None Seen); WBC,URINE 0-2 /HPF (0-3)
[2017-02-11 15:53] LABS: URINE AMORPHOUS URATE Few /HPF (None Seen)
[2017-02-11 15:58] VITALS: BP 119/61
[2017-02-11] MEDS ORDERED: IV D5W 500 ML IV ONE (17:30)
[2017-02-11 17:43] LABS: EOSINOPHIL,URINE None Seen
[2017-02-11] MEDS ORDERED: IV D5W 1,000 ML IV PRN (18:30)
[2017-02-11 19:58] VITALS: BP 117/64
[2017-02-11] MEDS: TAMSULOSIN 0.4 MG CAP.SR.24H PO SCH (21:38)
[2017-02-11] MEDS: ATORVASTATIN 10 MG TABLET PO SCH (21:39)
[2017-02-11] MEDS: TEMAZEPAM 7.5 MG CAPSULE PO PRN (21:40)
[2017-02-12] MEDS: NEOMY SULF/BACITRAC ZN/POLY 15 GM TUBE TP SCH (07:13)
[2017-02-12 08:00] VITALS: BP 110/65
[2017-02-12] MEDS: LACTULOSE 10 G/15 ML UDC (PYXIS) PO SCH (08:55)
[2017-02-12] MEDS: DIVALPROEX SODIUM 125 MG CAP.SPRINK PO SCH ×2 (08:56→12:04)
[2017-02-12] MEDS: RIFAXIMIN 550 MG TABLET PO SCH (08:58)
[2017-02-12] MEDS: QUETIAPINE FUMARATE 25 MG TABLET PO SCH ×2 (08:58→12:04)
[2017-02-12] MEDS: HYDROGEL DRESSING 90 GM TUBE TP SCH (09:03)
[2017-02-12] MEDS: Z GUARD REMEDY 2 OZ OINT TP SCH (09:03)
[2017-02-12 09:06] LABS: CARBON DIOXIDE 25 mmol/L (21-32); CHLORIDE 109 mmol/L (98-107); CREATININE 1.5 mg/dL (0.6-1.3); GLUCOSE 101 mg/dL (74-106); POTASSIUM 3.7 mmol/L (3.5-5.1); SODIUM SERUM 143 mmol/L (136-145); UREA NITROGEN, BLOOD 13 mg/dL (7-18)
[2017-02-12 15:40] VITALS: BP 129/65
--- NOTE | 2017-02-12 16:28 | NUR ---
GPS/RN NOTE: PATIENT DISCHARGE TO [facility] [id number] [place] [address] VIA AMBULANCE . PATIENT IN STABLE CONDITION VSS WNL , PATIENT DENIES SI/HI AT THE TIME OF DISCHARGE, WAS SEEN AND EXAMINE BY DR EVANS AND DR MERRITT , NOTIFIED OF DISCHARGE WITH T.O. ORDER TO CONTINUE MEDICATIONS. PT HAS SACRAL WOUND TX WAS DONE PER ORDER PT TOOK A SHOWER APPLY HYDROGEL WITH MEPILEX Z GUARD, PICTURE PLACED IN THE CHART,ALL BELONGINGS RETURNED TO PT, REPORT GIVEN TO WILLOW RN IN THE FACILITY.
== END 2017-02-12 16:36 | DRG 885 ==
LOC: GPS 20:41
PROVIDERS: ADMIT Psychiatry & Neurology Psychosomatic Medicine
DX: F25.0 Schizoaffective disorder, bipolar type (principal); N18.3 Chronic kidney disease, stage 3 (moderate); N17.9 Acute kidney failure, unspecified; G93.40 Encephalopathy, unspecified; E87.0 Hyperosmolality and hypernatremia; F29 Unspecified psychosis not due to a substance or known physiological condition; F03.90 Unspecified dementia, unspecified severity, without behavioral disturbance, psychotic disturbance, mood disturbance, and anxiety; D63.8 Anemia in other chronic diseases classified elsewhere; E78.5 Hyperlipidemia, unspecified; I12.9 Hypertensive chronic kidney disease with stage 1 through stage 4 chronic kidney disease, or unspecified chronic kidney disease; N40.0 Benign prostatic hyperplasia without lower urinary tract symptoms; E87.6 Hypokalemia; E86.0 Dehydration; D50.9 Iron deficiency anemia, unspecified
CPT/HCPCS: 36415; 80048-TC; 80053-TC; 80061-TC; 80164-TC; 81000-TC; 82306; 82570-TC; 82652; 83540-TC; 83735-TC; 83935-TC; 83970; 84100-TC; 84155-TC; 84300-TC; 85025-TC; 87081-TC; 97116-TC; 97530-TC; A6248; J3490; J7060; J7070

== ENCOUNTER 2017-03-13 14:10 | Inpatient (IN) | payer MEDICARE ==
[~2017-03-13] VITALS: Ht 177.8 cm; Wt 72.6 kg
[~2017-03-13 14:10] MED LIST: GUAI5SYR PO; LACT10SO PO; RIFA550T PO; ROSU10TA27 PO; TAMS0.4C34 PO
--- NOTE | 2017-03-13 14:10 | NUR ---
BBPA FROM [facility]: Na 170; BUN 66; Cr 3.39; Cl 130. POOR ORAL INTAKE. NAD NOTED. VSS. PT PLACED IN GOWN AND MONITOR. PENDING MD CAR.
[2017-03-13 14:43] LABS: BASOPHILS # (AUTO) 0.1 /CMM (0.0-0.2); BASOPHILS % (AUTO) 0.8 % (0.0-2.0); EOSINOPHILS % (AUTO) 0.3 % (0.0-6.0); HEMATOCRIT 37 % (39-51); HEMOGLOBIN 11.9 g/dL (13.5-17.5); LYMPHOCYTES # (AUTO) 1.1 /CMM (0.8-4.8); LYMPHOCYTES % (AUTO) 8.1 % (20.0-44.0); MEAN CORPUSCULAR HEMOGLOBIN 32 PG (26.0-33.0); MEAN CORPUSCULAR HGB CONC 32 g/dl (31.0-36.0); MEAN CORPUSCULAR VOLUME 101 fL (80-96); MONOCYTES # (AUTO) 0.8 /CMM (0.1-1.30); MONOCYTES % (AUTO) 5.9 % (2.0-12.0); NEUTROPHILS # (AUTO) 12.2 /CMM (1.8-8.9); NEUTROPHILS % (AUTO) 84.9 % (43.0-81.0); PLATELET COUNT (AUTO) 224 /CMM (150-450); RDW COEFFICIENT OF VARIATION 19.1 (11.5-15.0); RED BLOOD CELL COUNT(AUTO) 3.72 MIL/uL (4.5-6.0); WHITE BLOOD COUNT (AUTO) 14.2 K/uL (4.3-11.0)
[2017-03-13 14:54] LABS: INR 1.16 (0.85-1.15)
[2017-03-13 14:56] LABS: ALANINE AMINOTRANSFERASE 28 U/L (12-78); ALBUMIN 3.2 g/dL (3.4-5.0); ALKALINE PHOSPHATASE 144 U/L (46-116); ASPARTATE AMINOTRANSFERASE 51 U/L (15-37); BILIRUBIN,DIRECT 0.1 mg/dL (0.0-0.2); BILIRUBIN,TOTAL 0.5 mg/dL (0.2-1.0); CARBON DIOXIDE 29 mmol/L (21-32); CREATININE 3.6 mg/dL (0.6-1.3); GLUCOSE 108 mg/dL (74-106); TOTAL PROTEIN, SERUM 8.3 g/dL (6.4-8.2); UREA NITROGEN, BLOOD 75 mg/dL (7-18)
[2017-03-13 14:59] LABS: CHLORIDE 132 mmol/L (98-107); SODIUM SERUM 171 mmol/L (136-145)
[2017-03-13] MEDS ORDERED: IV NS 0.9% 1,000 ML BAG IV ONE (15:00)
--- NOTE | 2017-03-13 15:27 | NUR ---
CALLED [facility] FOR PANEL
[2017-03-13] MEDS ORDERED: DIVA125C PO (16:19)
[2017-03-13] MEDS ORDERED: TAMS-12 PO (16:19)
[2017-03-13] MEDS ORDERED: NA P133E RC (16:19)
[2017-03-13] MEDS ORDERED: IV D5W 1,000 ML IV PRN (16:21)
[2017-03-13] MEDS ORDERED: ACETAMINOPHEN 325 MG TABLET PO PRN (16:30)
[2017-03-13] MEDS ORDERED: MAGNESIUM HYDROXIDE 30 ML UDC PO PRN (16:30)
[2017-03-13] MEDS ORDERED: ONDANSETRON HCL/PF 4 MG/2 ML VIAL IVP PRN (16:30)
[2017-03-13] MEDS ORDERED: HYDROCODONE/APAP 5/325MG 1 EACH TABLET PO PRN (16:30)
[2017-03-13] MEDS ORDERED: GUAIFENESIN/D-METHORPHAN HB 5 ML UDC PO PRN (16:30)
[2017-03-13] MEDS ORDERED: Z GUARD REMEDY 2 OZ OINT TP PRN (16:30)
[2017-03-13] MEDS ORDERED: MAG HYDROX/AL HYDROX/SIMETH 30 ML UDC PO PRN (16:30)
[2017-03-13] MEDS ORDERED: MULT-447 PO (16:48)
[2017-03-13] MEDS ORDERED: MAGN400O6 PO (16:48)
[2017-03-13] MEDS ORDERED: ZINC220C6 PO (16:48)
[2017-03-13] MEDS ORDERED: ATOR20TA PO (16:48)
[2017-03-13] MEDS ORDERED: MAG355OR18 PO (16:48)
[2017-03-13] MEDS ORDERED: ASCO500T9 PO (16:48)
[2017-03-13] MEDS ORDERED: ACET325T53 PO ×2 (16:48)
[2017-03-13] MEDS ORDERED: QUET50TA PO (16:48)
--- NOTE | 2017-03-13 17:52 | NUR ---
REPORT GIVEN TO JAMIE MORFIN RN FOR IZAIAH
[2017-03-13 17:58] LABS: APPEARANCE,URINE Clear (CLEAR); BILIRUBIN,URINE Negative (NEGATIVE); BLOOD, URINE Negative Ery/uL (NEGATIVE); COLOR,URINE Yellow (YELLOW); KETONES,URINE Trace (NEGATIVE); LEUKOCYTE ESTERASE ,URINE Negative (NEGATIVE); NITRITE, URINE Positive (NEGATIVE); PROTEIN,URINE 30 mg/dl (NEGATIVE); UGLUCOSE Negative (NEGATIVE); UROBILINOGEN,URINE 0.2 EU/dL (0.2)
[2017-03-13 18:15] LABS: BACTERIA,URINE Many /HPF (None Seen); RBC,URINE 0-2 /HPF (0-2); SQUAMOUS EPITHELIAL CELL,UR Rare /HPF (None Seen); URINE AMORPHOUS URATE Rare /HPF (None Seen)
[2017-03-13 20:00] VITALS: BP 106/56
--- NOTE | 2017-03-13 20:00 | NUR ---
SPOOL FIXER INITIAL NOTE PT RECEIVED IN BED. NOTED WITH RESTLESSNESS AND TRYING TO GET OUT OF BED. ALERT TO NAME AND NON VERBAL BUT MAKES NOISES. ON ROOM AIR AND SATURATING WELL. BREATHING REGULAR AND UNLABORED. TELE- SINUS RHYTHM WITH PVC. IV PULLED OUT BY PT, PUT PRESSURE AND COVERED WITH DRY DRESSING. NO FACIAL GRIMACE NOTED. NEW IV STARTED HAILY #18 CLEAN, DRY AND FLUSHING WELL. HOB ELEVATED. CALL LIGHT WITHIN REACH. WILL CONTINUE TO MONITOR.
[2017-03-13] MEDS: TAMSULOSIN 0.4 MG CAP.SR.24H PO SCH (22:52)
[2017-03-13] MEDS: RIFAXIMIN 550 MG TABLET PO SCH (22:52)
[2017-03-13] MEDS: ATORVASTATIN 10 MG TABLET PO SCH (22:52)
[2017-03-13] MEDS: DIVALPROEX SODIUM 125 MG CAP.SPRINK PO SCH (22:52)
--- NOTE | 2017-03-13 23:30 | NUR ---
REVENUE SPECIALIST NOTE PT STILL NOTED WITH RESTLESS BEHAVIOR, CONFUSION, TRYING TO GET OUT OF BED AND PULLING ON IV. BILATERAL SOFT WRIST RESTRAINTS PLACED AND SECURED. BED IN LOWEST POSITION, LOCKED IN PLACE AND BED ALARM ON. WILL CONTINUE TO MONITOR.
[2017-03-14] VITALS: BP 120/68
[2017-03-14 05:02] VITALS: BP 120/61
--- NOTE | 2017-03-14 07:30 | NUR ---
SAMPLE BOOK MAKER AM NOTES PT RECEIVED IN BED. CONFUSED, ON 2L O2 NC, NOT SOB, NO DISTRESS, RESPIRATION UNLABORED, SR 82 ON TELEMETRY. RESTLESS AND TRYING TO GET OUT OF BED. SOFT RESTRAINT TO BOTH WRIST. CHECKED FOR CIRCULATION, WILL RELEASE Q 2 HOURS. HAILY G18 WITH D5W AT 75 ML/HR INFUSING WELL. SITE CLEAR. SEE NURSING FLOWSHEET FOR SKIN ISSSUES. HOB ELEVATED. CALL LIGHT WITHIN REACH. WILL CONTINUE TO MONITOR. Addendum: 03/14/17 at 1538 by JANETT JONES RN ADDENDUM: ENGLISH CATH IN PLACE DRAINING ADEQUATE AMOUNT OF URINE.
[2017-03-14 07:52] LABS: EOSINOPHILS # (AUTO) 0.1 /CMM (0.0-0.7); EOSINOPHILS % (AUTO) 1.1 % (0.0-6.0); HEMATOCRIT 34 % (39-51); HEMOGLOBIN 10.9 g/dL (13.5-17.5); LYMPHOCYTES # (AUTO) 0.9 /CMM (0.8-4.8); LYMPHOCYTES % (AUTO) 7.3 % (20.0-44.0); MEAN CORPUSCULAR HEMOGLOBIN 34 PG (26.0-33.0); MEAN CORPUSCULAR HGB CONC 33 g/dl (31.0-36.0); MEAN CORPUSCULAR VOLUME 103 fL (80-96); MONOCYTES # (AUTO) 0.8 /CMM (0.1-1.30); NEUTROPHILS # (AUTO) 9.9 /CMM (1.8-8.9); NEUTROPHILS % (AUTO) 84.6 % (43.0-81.0); PLATELET COUNT (AUTO) 188 /CMM (150-450); RDW COEFFICIENT OF VARIATION 19.8 (11.5-15.0); RED BLOOD CELL COUNT(AUTO) 3.25 MIL/uL (4.5-6.0); WHITE BLOOD COUNT (AUTO) 11.7 K/uL (4.3-11.0)
[2017-03-14 08:00] VITALS: BP 118/67
--- NOTE | 2017-03-14 08:23 | NUR ---
CORE ANALYSIS OPERATOR CLOSING NOTE RECEIVED CRITICAL LAB FOR SODIUM 169 AND THEN 171. SPOKE WITH DIRECTOR OF CHILD WELFARE SERVICES DR. MERRITT AND SAID TO CONTINUE SAME FLUIDS AND HAVE THE NEXT SHIFT FOLLOW UP. BLADDER SCAN PERFORMED DUE TO POSSIBLE URINE RETENTION. PT RETAINING URINE OF 800 IN THE BLADDER SCAN. RELAYED INFORMATION TO DR. MERRITT WITH NEW ORDER TO INSERT ENGLISH CATHETER. CATHETER INSERTED WITH STERILE TECHNIQUE AND PROCEDURE WELL TOLERATED. NO C/O PAIN OR DISCOMFORT NOTED. PT REMAINS WITH BILATERAL SOFT WRIST RESTRAINTS. NO DISCOLORATION AND PALPABLE PULSES NOTED. ALL NEEDS ATTENDED TO PROMPTLY. KEPT CLEAN ND DRY. ALL SAFETY MEASURES IN PLACE. WILL ENDORSE TO NEXT SHIFT FOR CONTINUITY OF CARE.
[2017-03-14 08:46] LABS: IRON, SERUM 47 ug/dl (50-175); TOTAL IRON BINDING CAPACITY 175 ug/dl (250-450)
[2017-03-14] MEDS: DIVALPROEX SODIUM 125 MG CAP.SPRINK PO SCH ×3 (09:28→16:45)
[2017-03-14] MEDS: RIFAXIMIN 550 MG TABLET PO SCH ×2 (09:28→16:45)
[2017-03-14] MEDS: ASPIRIN 81 MG TAB.CHEW PO SCH (09:28)
--- NOTE | 2017-03-14 09:30 | NUR ---
LEASE BROKER NOTES DUE MEDS GIVEN
[2017-03-14 09:31] LABS: CALCIUM, SERUM 8.9 mg/dL (8.5-10.1); CARBON DIOXIDE 25 mmol/L (21-32); GLUCOSE 91 mg/dL (74-106); MAGNESIUM 2.6 mg/dL (1.8-2.4); PHOSPHORUS 3.1 mg/dL (2.5-4.9); POTASSIUM 3.3 mmol/L (3.5-5.1); UREA NITROGEN, BLOOD 67 mg/dL (7-18)
[2017-03-14 09:42] LABS: CHLORIDE 133 mmol/L (98-107); SODIUM SERUM 170 mmol/L (136-145)
[2017-03-14] MEDS ORDERED: IV D5W 1,000 ML IV PRN (10:00)
[2017-03-14] MEDS ORDERED: IV NS 0.9% 1,000 ML IV PRN (10:30)
[2017-03-14 10:51] LABS: THYROID STIMULATING HORMONE 0.369 uIU/mL (0.358-3.74)
[2017-03-14 12:00] VITALS: BP 126/69
[2017-03-14] MEDS: QUETIAPINE FUMARATE 25 MG TABLET PO SCH ×3 (12:45→21:06)
[2017-03-14] MEDS: IV D5/0.45 NACL 1,000 ML IV PRN ×2 (13:49→22:10)
--- NOTE | 2017-03-14 15:04 | NUR ---
PERFORMING ARTS ROAD MANAGER NOTES DR. CRUZ INFORMED PATIENT HAD EPISODE OF SVT - HR FOLLOWS: 157 - 217- 169 NOW 89. BP 132/65. PER DR. CRUZ TO MONITOR HIM. NO NEW ORDERS.
[2017-03-14 16:00] VITALS: BP 131/72
--- NOTE | 2017-03-14 19:31 | NUR ---
RN CONCURRENT REVIEW NOTES PT RESTING COMFORTABLY. REMAINS CONFUSED, ON 2L O2 NC, NOT SOB, NO DISTRESS, RESPIRATION UNLABORED, SR 94 ON TELEMETRY. SOFT RESTRAINT TO BOTH WRIST. CHECKED FOR CIRCULATION, RELEASED Q 2 HOURS. HAILY G18 WITH D5 1/2 NS AT 125ML/HR INFUSING WELL. SITE CLEAR. TURNED AND REPOSITIONED Q2H. HOB ELEVATED. CALL LIGHT WITHIN REACH. ENGLISH CATH IN PLACE. DRAINING ADEQUATE AMOUNT OF URINE WITH 350 ML OUT PUT. PM CARE DONE. SITTER AT BEDSIDE. ENDORSED TO NEXT SHIFT FOR IZAIAH.
--- NOTE | 2017-03-14 19:40 | NUR ---
MAJOR ACCOUNT REPRESENTATIVE INITIAL NOTE PT RECEIVED IN BED AWAKE. A/O X1 WITH NOTED CONFUSION AND RESTLESSNESS. ON 2L OF O2 AND SATURATING 98%. BREATHING EVEN AND UNLABORED. IV HAILY #18 CLEAN, PATENT WITH FLUIDS INFUSING. BILATERAL SOFT WRIST RESTRAINTS ON AND CIRCULATION CHECKED WITH PALPABLE PULSES NOTED. ENGLISH CATHETER IN PLACE AND DRAINING. BED ALARM ENABLED AND BED LOCKED IN PLACE. CALL LIGHT WITHIN REACH. WILL CONTINUE TO MONITOR.
[2017-03-14 20:00] VITALS: BP 143/73
[2017-03-14] MEDS: TAMSULOSIN 0.4 MG CAP.SR.24H PO SCH (21:06)
[2017-03-14] MEDS: ATORVASTATIN 10 MG TABLET PO SCH (21:06)
[2017-03-14] MEDS ORDERED: Medication Not On Formulary EA (Atorvastatin Calcium (Lipitor) 20 MG) PO SCH (22:00)
[2017-03-15] VITALS: BP 129/69
[2017-03-15 04:00] VITALS: BP 129/70
[2017-03-15] MEDS: IV D5/0.45 NACL 1,000 ML IV PRN ×2 (07:01→16:32)
--- NOTE | 2017-03-15 07:30 | NUR ---
LATEX CASTER AM NOTES PT RECEIVED IN BED. CONFUSED, ON 2L O2 NC, NOT SOB, NO DISTRESS, RESPIRATION UNLABORED, SR 82 ON TELEMETRY. RESTLESS AND TRYING TO GET OUT OF BED. SOFT RESTRAINT TO BOTH WRIST. CHECKED FOR CIRCULATION, WILL RELEASE Q 2 HOURS. HAILY G18 WITH D5 1/2 NS 125 ML/HR INFUSING WELL. SITE CLEAR. ENGLISH CATH IN PLACE DRAINING ADEQUATE AMOUNT OF URINE. SEE NURSING FLOWSHEET FOR SKIN ISSUES. HOB ELEVATED. CALL LIGHT WITHIN REACH. WILL CONTINUE TO MONITOR.
[2017-03-15 07:39] LABS: BASOPHILS % (AUTO) 0.1 % (0.0-2.0); EOSINOPHILS # (AUTO) 0.3 /CMM (0.0-0.7); EOSINOPHILS % (AUTO) 3.1 % (0.0-6.0); HEMATOCRIT 31 % (39-51); HEMOGLOBIN 10.3 g/dL (13.5-17.5); LYMPHOCYTES # (AUTO) 0.8 /CMM (0.8-4.8); MEAN CORPUSCULAR HEMOGLOBIN 34 PG (26.0-33.0); MEAN CORPUSCULAR HGB CONC 33 g/dl (31.0-36.0); MEAN CORPUSCULAR VOLUME 103 fL (80-96); MONOCYTES # (AUTO) 0.7 /CMM (0.1-1.30); MONOCYTES % (AUTO) 6.1 % (2.0-12.0); NEUTROPHILS # (AUTO) 9.3 /CMM (1.8-8.9); NEUTROPHILS % (AUTO) 83.7 % (43.0-81.0); PLATELET COUNT (AUTO) 156 /CMM (150-450); RDW COEFFICIENT OF VARIATION 19.5 (11.5-15.0); RED BLOOD CELL COUNT(AUTO) 3.05 MIL/uL (4.5-6.0); WHITE BLOOD COUNT (AUTO) 11.1 K/uL (4.3-11.0)
[2017-03-15 07:52] LABS: TROPONIN I 0.123 ng/mL (0.00-0.056)
[2017-03-15 07:59] LABS: ALANINE AMINOTRANSFERASE 29 U/L (12-78); ALBUMIN 2.5 g/dL (3.4-5.0); ALKALINE PHOSPHATASE 117 U/L (46-116); ASPARTATE AMINOTRANSFERASE 41 U/L (15-37); BILIRUBIN,TOTAL 0.4 mg/dL (0.2-1.0); CARBON DIOXIDE 27 mmol/L (21-32); CREATININE 2.4 mg/dL (0.6-1.3); GLUCOSE 109 mg/dL (74-106); MAGNESIUM 2.4 mg/dL (1.8-2.4); PHOSPHORUS 2.7 mg/dL (2.5-4.9); POTASSIUM 3.6 mmol/L (3.5-5.1); TOTAL PROTEIN, SERUM 6.7 g/dL (6.4-8.2); UREA NITROGEN, BLOOD 55 mg/dL (7-18)
[2017-03-15 08:00] VITALS: BP 122/70
[2017-03-15 08:09] LABS: CHLORIDE 132 mmol/L (98-107); SODIUM SERUM 167 mmol/L (136-145)
--- NOTE | 2017-03-15 08:14 | NUR ---
RN NOTE PT REMAINS IN NO ACUTE DISTRESS IN BED. PT DID NOT HAVE ANY SIGNIFICANT CHANGE IN CONDITION DURING SHIFT. PT HAS BILATERAL SOFT RESTRAINTS WITH PALPABLE PULSES AND NO DISCOLORATION NOTED. ALL NEEDS ATTENDED TO, KEPT CLEAN AND DRY. WILL ENDORSE CARE TO AM RN FOR CONTINUITY OF CARE.
[2017-03-15 08:42] LABS: IRON, SERUM 33 ug/dl (50-175); TOTAL IRON BINDING CAPACITY 147 ug/dl (250-450)
--- NOTE | 2017-03-15 09:30 | NUR ---
DIRECTOR OF APPLICATION DEVELOPMENT NOTES DUE MEDS GIVEN.
[2017-03-15] MEDS: ASPIRIN 81 MG TAB.CHEW PO SCH (09:32)
[2017-03-15] MEDS: DIVALPROEX SODIUM 125 MG CAP.SPRINK PO SCH ×3 (09:32→16:30)
[2017-03-15] MEDS: QUETIAPINE FUMARATE 25 MG TABLET PO SCH ×4 (09:32→22:39)
[2017-03-15] MEDS: ASCORBIC ACID 500 MG TABLET PO SCH (09:32)
[2017-03-15] MEDS: RIFAXIMIN 550 MG TABLET PO SCH ×2 (09:32→16:30)
[2017-03-15] MEDS: MULTIVIT, IRON, MIN NO. 8, FA 1 TAB PO SCH (09:32)
[2017-03-15 09:47] LABS: CREATINE KINASE, TOTAL 117 U/L (39-308); FERRITIN 602 ng/mL (8-388); THYROID STIMULATING HORMONE 0.395 uIU/mL (0.358-3.74); URIC ACID 12.1 mg/dL (2.6-7.2)
[2017-03-15 12:00] VITALS: BP 122/65
--- NOTE | 2017-03-15 14:43 | NUR ---
CLIENT INSIGHTS CONSULTANT NOTES NIKO FRASER NOTIFIED ABOUT PATIENT NEEDS ISOFLEX BED.
[2017-03-15 16:00] VITALS: BP 138/69
--- NOTE | 2017-03-15 19:15 | NUR ---
MANAGER MUTUAL FUND AM NOTES RECEIVED PT IN BED. AWAKE , CONFUSED NO SOB, NOR DISTRESS NOTED. RESPIRATION UNLABORED. RESTLESS AND TRYING TO GET OUT OF BED. SOFT RESTRAINT TO BOTH WRIST. CHECKED FOR CIRCULATION, WILL RELEASE Q 2 HOURS. HAILY G18 WITH D5 1/2 NS 125 ML/HR INFUSING WELL. ENGLISH CATH IN PLACE DRAINING ADEQUATE AMOUNT OF URINE. HOB ELEVATED. ASPIRATION AND SAFETY PRECAUTIONS OBSERVED. CALL LIGHT WITHIN REACH. WILL CONTINUE TO MONITOR. Addendum: 03/16/17 at 0649 by RAJEEV HAGEN RN INCORRECT DOCUMENTATION.
--- NOTE | 2017-03-15 19:25 | NUR ---
CURB WORKER NOTES PT RESTING COMFORTABLY. REMAINS CONFUSED, ON 2L O2 NC, NOT SOB, NO DISTRESS, RESPIRATION UNLABORED, SR 92 ON TELEMETRY. SOFT RESTRAINT TO BOTH WRIST. CHECKED FOR CIRCULATION, RELEASED Q 2 HOURS. HAILY G18 WITH D5 1/2 NS AT 125ML/HR INFUSING WELL. SITE CLEAR. TURNED AND REPOSITIONED Q2H. HOB ELEVATED. CALL LIGHT WITHIN REACH. ENGLISH CATH IN PLACE. DRAINING ADEQUATE AMOUNT OF URINE WITH 600 ML OUT PUT. PM CARE DONE. SITTER AT BEDSIDE. ENDORSED TO NEXT SHIFT FOR IZAIAH.
[2017-03-15 20:00] VITALS: BP 143/74
[2017-03-15] MEDS: TAMSULOSIN 0.4 MG CAP.SR.24H PO SCH (22:39)
[2017-03-15] MEDS: ATORVASTATIN 10 MG TABLET PO SCH (22:39)
[2017-03-16] VITALS: BP 136/68
[2017-03-16 04:00] VITALS: BP 137/76
--- NOTE | 2017-03-16 06:47 | NUR ---
SOUND PRINTER NOTES PT IN BED. RESTING COMFORTABLY, AROUSES EASILY. CONFUSED NO SOB, NOR DISTRESS NOTED. RESPIRATION UNLABORED. WITH ON AND OFF EPISODE RESTLESSNESS AND TRYING TO GET OUT OF BED. SOFT RESTRAINT TO BOTH WRIST. CHECKED FOR CIRCULATION, WILL RELEASE Q 2 HOURS. HAILY G18 WITH D5 1/2 NS 125 ML/HR INFUSING WELL. ENGLISH CATH IN PLACE DRAINING ADEQUATE AMOUNT OF URINE. HOB ELEVATED. ASPIRATION AND SAFETY PRECAUTIONS OBSERVED. CALL LIGHT WITHIN REACH. WILL ENDORSE TO NEXT SHIFT FOR IZAIAH.
[2017-03-16 07:32] LABS: EOSINOPHILS # (AUTO) 0.3 /CMM (0.0-0.7); EOSINOPHILS % (AUTO) 1.7 % (0.0-6.0); HEMATOCRIT 32 % (39-51); HEMOGLOBIN 10.2 g/dL (13.5-17.5); LYMPHOCYTES # (AUTO) 0.8 /CMM (0.8-4.8); LYMPHOCYTES % (AUTO) 5.8 % (20.0-44.0); MEAN CORPUSCULAR HEMOGLOBIN 33 PG (26.0-33.0); MEAN CORPUSCULAR HGB CONC 32 g/dl (31.0-36.0); MEAN CORPUSCULAR VOLUME 103 fL (80-96); MONOCYTES # (AUTO) 0.9 /CMM (0.1-1.30); MONOCYTES % (AUTO) 6.3 % (2.0-12.0); NEUTROPHILS # (AUTO) 12.6 /CMM (1.8-8.9); NEUTROPHILS % (AUTO) 86.2 % (43.0-81.0); PLATELET COUNT (AUTO) 149 /CMM (150-450); RDW COEFFICIENT OF VARIATION 19.9 (11.5-15.0); RED BLOOD CELL COUNT(AUTO) 3.08 MIL/uL (4.5-6.0); WHITE BLOOD COUNT (AUTO) 14.6 K/uL (4.3-11.0)
[2017-03-16 07:49] LABS: CALCIUM, SERUM 8.8 mg/dL (8.5-10.1); CARBON DIOXIDE 25 mmol/L (21-32); CREATININE 1.7 mg/dL (0.6-1.3); GLUCOSE 107 mg/dL (74-106); MAGNESIUM 2.2 mg/dL (1.8-2.4); PHOSPHORUS 2.7 mg/dL (2.5-4.9); POTASSIUM 3.9 mmol/L (3.5-5.1); UREA NITROGEN, BLOOD 41 mg/dL (7-18)
--- NOTE | 2017-03-16 07:54 | NUR ---
ENGINE TEST CELL TECHNICIAN AM NOTES RECEIVED PT IN BED. AWAKE , CONFUSED NO SOB, NO DISTRESS NOTED. RESPIRATION EVEN AND UNLABORED. RESTLESS AND TRYING TO GET OUT OF BED. SOFT RESTRAINT TO BOTH WRIST. CHECKED FOR CIRCULATION, WILL RELEASE Q 2 HOURS. HAILY G18 WITH D5 1/2 NS 125 ML/HR INFUSING WELL. ENGLISH CATH IN PLACE DRAINING ADEQUATE AMOUNT OF URINE. HOB ELEVATED. ASPIRATION AND SAFETY PRECAUTIONS OBSERVED. CALL LIGHT WITHIN REACH. WILL CONTINUE TO MONITOR.
[2017-03-16 08:00] VITALS: BP 127/76
[2017-03-16 08:04] LABS: CHLORIDE 131 mmol/L (98-107); SODIUM SERUM 166 mmol/L (136-145)
[2017-03-16] MEDS: ASCORBIC ACID 500 MG TABLET PO SCH (08:49)
[2017-03-16] MEDS: DIVALPROEX SODIUM 125 MG CAP.SPRINK PO SCH ×3 (08:49→17:38)
[2017-03-16] MEDS: RIFAXIMIN 550 MG TABLET PO SCH ×2 (08:49→17:38)
[2017-03-16] MEDS: MULTIVIT, IRON, MIN NO. 8, FA 1 TAB PO SCH (08:49)
[2017-03-16] MEDS: QUETIAPINE FUMARATE 25 MG TABLET PO SCH ×4 (08:50→21:52)
[2017-03-16] MEDS: ASPIRIN 81 MG TAB.CHEW PO SCH (08:50)
[2017-03-16 12:00] VITALS: BP 120/75
[2017-03-16 13:09] LABS: PTH, INTACT 34 pg/mL (15-65)
[2017-03-16 16:00] VITALS: BP 125/75
--- NOTE | 2017-03-16 19:28 | NUR ---
patient in stable condition.no s/s of distress.all needs attended.safety measures in place
[2017-03-16 20:00] VITALS: BP 121/70
--- NOTE | 2017-03-16 20:00 | NUR ---
RN INITIAL NOTES RECEIVED PT IN BED. AWAKE , CONFUSED, NO SOB, NO DISTRESS NOTED. RESPIRATION EVEN AND UNLABORED. RESTLESS AND TRYING TO GET OUT OF BED. SOFT RESTRAINT TO BOTH WRIST. CHECKED FOR CIRCULATION, WILL RELEASE Q 2 HOURS. HAILY G18 WITH D5 1/2 NS 125 ML/HR INFUSING WELL. ENGLISH CATH IN PLACE DRAINING ADEQUATE AMOUNT OF URINE. HOB ELEVATED. ASPIRATION AND SAFETY PRECAUTIONS OBSERVED. CALL LIGHT WITHIN REACH. WILL CONTINUE TO MONITOR.
[2017-03-16] MEDS: ATORVASTATIN 10 MG TABLET PO SCH (21:52)
[2017-03-16] MEDS: TAMSULOSIN 0.4 MG CAP.SR.24H PO SCH (21:52)
[2017-03-16 21:59] LABS: APPEARANCE,URINE CLOUDY (CLEAR); BILIRUBIN,URINE NEGATIVE (NEGATIVE); BLOOD, URINE 2+ Ery/uL (NEGATIVE); COLOR,URINE YELLOW (YELLOW); KETONES,URINE NEGATIVE (NEGATIVE); LEUKOCYTE ESTERASE ,URINE 2+ (NEGATIVE); NITRITE, URINE POSITIVE (NEGATIVE); PH,URINE 5.5 (5.0-8.0); PROTEIN,URINE 2+ mg/dl (NEGATIVE); UGLUCOSE NEGATIVE (NEGATIVE); UROBILINOGEN,URINE 0.2 EU/dL (0.2)
[2017-03-16 22:15] LABS: BACTERIA,URINE Moderate /HPF (None Seen); SQUAMOUS EPITHELIAL CELL,UR Rare /HPF (None Seen); WBC,URINE 81-100 /HPF (0-3)
[2017-03-16 22:20] LABS: CREATININE, URINE 114.8 MG/DL (30.0-125.0); URINE TOTAL PROTEIN 155.9 mg/dL (0-11.9)
[2017-03-16 22:30] LABS: EOSINOPHIL,URINE Few
[2017-03-17] VITALS: BP 117/71
[2017-03-17 04:00] VITALS: BP 134/77
[2017-03-17] MEDS: IV D5/0.45 NACL 1,000 ML IV PRN ×2 (04:06→15:47)
--- NOTE | 2017-03-17 06:28 | NUR ---
RN CLOSING NOTES PT IN BED. ASLEEP, CONFUSED, NO SOB, NO DISTRESS NOTED. RESPIRATION EVEN AND UNLABORED. RESTLESS AND TRYING TO GET OUT OF BED. PULLING ON TUBES AND DRAINS. SOFT RESTRAINT TO BOTH WRIST Q2H ASSESSMENTS DONE. 1;1 SITTER. HAILY G18 WITH D5 1/2 NS 125 ML/HR INFUSING WELL. ENGLISH CATH IN PLACE DRAINING ADEQUATE AMOUNT OF URINE. HOB ELEVATED. ASPIRATION AND SAFETY PRECAUTIONS OBSERVED.BED IN LOW AND LOCKED POSITION. CALL LIGHT WITHIN REACH. WILL ENDORSE TO AM RN.
[2017-03-17 06:37] LABS: ALANINE AMINOTRANSFERASE 32 U/L (12-78); ALBUMIN 2.3 g/dL (3.4-5.0); ALKALINE PHOSPHATASE 112 U/L (46-116); ASPARTATE AMINOTRANSFERASE 40 U/L (15-37); BILIRUBIN,TOTAL 0.4 mg/dL (0.2-1.0); CALCIUM, SERUM 9.1 mg/dL (8.5-10.1); CARBON DIOXIDE 25 mmol/L (21-32); CREATININE 1.7 mg/dL (0.6-1.3); GLUCOSE 120 mg/dL (74-106); PHOSPHORUS 2.6 mg/dL (2.5-4.9); POTASSIUM 3.6 mmol/L (3.5-5.1); TOTAL PROTEIN, SERUM 6.4 g/dL (6.4-8.2); UREA NITROGEN, BLOOD 38 mg/dL (7-18)
[2017-03-17 06:42] LABS: EOSINOPHILS # (AUTO) 0.5 /CMM (0.0-0.7); EOSINOPHILS % (AUTO) 4.4 % (0.0-6.0); HEMATOCRIT 32 % (39-51); HEMOGLOBIN 10.2 g/dL (13.5-17.5); LYMPHOCYTES # (AUTO) 0.8 /CMM (0.8-4.8); LYMPHOCYTES % (AUTO) 6.8 % (20.0-44.0); MEAN CORPUSCULAR HEMOGLOBIN 33 PG (26.0-33.0); MEAN CORPUSCULAR HGB CONC 32 g/dl (31.0-36.0); MEAN CORPUSCULAR VOLUME 102 fL (80-96); MONOCYTES # (AUTO) 0.6 /CMM (0.1-1.30); MONOCYTES % (AUTO) 5.5 % (2.0-12.0); NEUTROPHILS # (AUTO) 9.2 /CMM (1.8-8.9); NEUTROPHILS % (AUTO) 83.3 % (43.0-81.0); PLATELET COUNT (AUTO) 139 /CMM (150-450); RDW COEFFICIENT OF VARIATION 19.5 (11.5-15.0); RED BLOOD CELL COUNT(AUTO) 3.13 MIL/uL (4.5-6.0); WHITE BLOOD COUNT (AUTO) 11.1 K/uL (4.3-11.0)
[2017-03-17 06:59] LABS: CHLORIDE 131 mmol/L (98-107); SODIUM SERUM 164 mmol/L (136-145)
--- NOTE | 2017-03-17 07:00 | NUR ---
MSRN OPENING NOTES. PT RECEIVED A&0X1, AWAKE AND RESTING IN BED. PT WITH SWR AND NEURO INTACT. PT WITH 1:1 SITTER. PT TOLERATING ROOM AIR WITH SAO2 99%. PT DENIES PAIN AND IS WITHOUT S/S OF DISTRESS OR DISCOMFORT. PT WITH ENGLISH INTACT AND OPERATIONAL DRAINING LITE YELLOW URINE. PT BED IN LOWEST LOCKED POSITION WITH HANDRAILSX3. WILL CONTINUE TO MONITOR.
[2017-03-17 08:00] VITALS: BP_SYST 120; BP_DIAS 70; BP_DIAS 72
[2017-03-17] MEDS: ASCORBIC ACID 500 MG TABLET PO SCH (09:14)
[2017-03-17] MEDS: QUETIAPINE FUMARATE 25 MG TABLET PO SCH ×4 (09:14→22:08)
[2017-03-17] MEDS: MULTIVIT, IRON, MIN NO. 8, FA 1 TAB PO SCH (09:14)
[2017-03-17] MEDS: DIVALPROEX SODIUM 125 MG CAP.SPRINK PO SCH ×3 (09:14→18:15)
[2017-03-17] MEDS: RIFAXIMIN 550 MG TABLET PO SCH ×2 (09:14→18:16)
[2017-03-17] MEDS: ASPIRIN 81 MG TAB.CHEW PO SCH (09:14)
[2017-03-17 16:19] VITALS: BP 144/54
--- NOTE | 2017-03-17 18:49 | NUR ---
MSRN CLOSING NOTES. PT A&0X1, CONFUSED, CURRENTLY TRYING TO GET OUT OF BED AND PULLING AT LINES- PT WITH 1:1 SITTER AT BEDSIDE FOR PT SAFETY. PT TOLERATING ROOM AIR WITH SAO2 98%. PT DENIES PAIN AND IS WITHOUT S/S OF DISTRESS OR DISCOMFORT. PT WITH IVC AT R AC INTACT AND OPERATIONAL AND PROTECTED WITH SLEEVE. PT WITH ENGLISH INTACT AND OPERATIONAL DRAINING LITE YELLOW URINE WITH 400ML DRAINED. Z GUARD APPLIED TO SACRUM AND REPOSITIONED PER PROTOCOL. PT BED IN LOWEST LOCKED POSITION WITH HANDRAILSX3. WILL ENDORSE TO NIGHT NURSE.
--- NOTE | 2017-03-17 19:30 | NUR ---
MS RN NOTE PT A&0X1, CONFUSED, PT WITH 1:1 SITTER AT BEDSIDE FOR PT SAFETY. PT TOLERATING ROOM AIR WITH SAO2 98%. PT DENIES PAIN AND IS WITHOUT S/S OF DISTRESS OR DISCOMFORT. PT WITH IVC AT R AC INTACT AND OPERATIONAL AND PROTECTED WITH SLEEVE. PT WITH ENGLISH INTACT AND OPERATIONAL DRAINING LITE YELLOW URINE TO COLLECTION BAG. PT BED IN LOWEST LOCKED POSITION WITH HANDRAILSX3. WILL CONTINUE TO MONITOR.
[2017-03-17] MEDS: ATORVASTATIN 10 MG TABLET PO SCH (22:08)
[2017-03-17] MEDS: TAMSULOSIN 0.4 MG CAP.SR.24H PO SCH (22:08)
[2017-03-18] VITALS: BP 144/54
--- NOTE | 2017-03-18 02:50 | NUR ---
MS RN NOTE PATIENT REFUSING BED BATH AND PICTURES AT THIS TIME. EXPLAINED BENEFITS TO PATIENT. CONTINUES TO REFUSE. YELLING AT SITTER. WILL TRY AGAIN LATER.
--- NOTE | 2017-03-18 03:09 | NUR ---
MS RN NOTE BED BATH GIVEN. PICTURES TAKEN AND PLACED IN CHART. WILL CONTINUE TO MONITOR.
--- NOTE | 2017-03-18 06:11 | NUR ---
MS RN NOTE PATIENT STABLE. ALL NEEDS MET AND ATTENDED TO. SITTER AT BEDSIDE. WILL ENDORSE TO DAY SHIFT FOR IZAIAH.
[2017-03-18] MEDS: IV D5/0.45 NACL 1,000 ML IV PRN ×2 (06:40→15:40)
[2017-03-18 06:42] LABS: EOSINOPHILS # (AUTO) 0.4 /CMM (0.0-0.7); EOSINOPHILS % (AUTO) 3.9 % (0.0-6.0); HEMATOCRIT 29 % (39-51); HEMOGLOBIN 9.4 g/dL (13.5-17.5); LYMPHOCYTES # (AUTO) 0.7 /CMM (0.8-4.8); MEAN CORPUSCULAR HEMOGLOBIN 33 PG (26.0-33.0); MEAN CORPUSCULAR HGB CONC 33 g/dl (31.0-36.0); MEAN CORPUSCULAR VOLUME 101 fL (80-96); MONOCYTES # (AUTO) 0.7 /CMM (0.1-1.30); MONOCYTES % (AUTO) 6.4 % (2.0-12.0); NEUTROPHILS # (AUTO) 8.9 /CMM (1.8-8.9); NEUTROPHILS % (AUTO) 82.7 % (43.0-81.0); PLATELET COUNT (AUTO) 114 /CMM (150-450); RDW COEFFICIENT OF VARIATION 19.5 (11.5-15.0); RED BLOOD CELL COUNT(AUTO) 2.87 MIL/uL (4.5-6.0); WHITE BLOOD COUNT (AUTO) 10.7 K/uL (4.3-11.0)
[2017-03-18 06:54] LABS: ALANINE AMINOTRANSFERASE 31 U/L (12-78); ALBUMIN 1.8 g/dL (3.4-5.0); ALKALINE PHOSPHATASE 100 U/L (46-116); ASPARTATE AMINOTRANSFERASE 36 U/L (15-37); BILIRUBIN,TOTAL 0.4 mg/dL (0.2-1.0); CALCIUM, SERUM 8.7 mg/dL (8.5-10.1); CARBON DIOXIDE 24 mmol/L (21-32); CREATININE 1.6 mg/dL (0.6-1.3); GLUCOSE 96 mg/dL (74-106); MAGNESIUM 1.7 mg/dL (1.8-2.4); PHOSPHORUS 2.3 mg/dL (2.5-4.9); POTASSIUM 3.4 mmol/L (3.5-5.1); TOTAL PROTEIN, SERUM 5.7 g/dL (6.4-8.2); UREA NITROGEN, BLOOD 31 mg/dL (7-18)
[2017-03-18 07:36] LABS: CHLORIDE 128 mmol/L (98-107); SODIUM SERUM 159 mmol/L (136-145)
--- NOTE | 2017-03-18 07:40 | NUR ---
MS/RN CRITICAL LAB RECEIVED CALL FROM RABIA FROM LAB AND HE RELAYED PATIENT CRITICAL Na OF 159 AND CHLORIDE OF 128 CRITICAL HIGH. DEAN RESEARCH LABORATORY MANAGER INFORMED WITH NEW ORDERS. ALSO MADE AWARE PATIENT SODIUM AND CHLORIDE LEVEL COMPARE TO PREVIOUS DAYS IS NOTED TO BE TRENDING DOWN. WILL CONTINUE TO MONITOR FOR FURTHER CHANGES.
--- NOTE | 2017-03-18 07:43 | NUR ---
MS/RN OPENING NOTE PATIENT IN BED IN STABLE CONDITION. A/O X 1 WITH EPISODES OF CONFUSION. NO SIGNS OF ACUTE DISTRESS. NO COMPLAIN OF PAIN OR DISCOMFORT. 1:1 SITTER AT BEDSIDE. ALL NEEDS ATTENDED TO. CALL LIGHT WITHIN REACH. WILL CONTINUE TO MONITOR TO ENSURE SAFETY.
[2017-03-18] MEDS: RIFAXIMIN 550 MG TABLET PO SCH ×2 (09:09→16:57)
[2017-03-18] MEDS: DIVALPROEX SODIUM 125 MG CAP.SPRINK PO SCH ×3 (09:09→16:57)
[2017-03-18] MEDS: MULTIVIT, IRON, MIN NO. 8, FA 1 TAB PO SCH (09:10)
[2017-03-18] MEDS: QUETIAPINE FUMARATE 25 MG TABLET PO SCH ×4 (09:10→21:33)
[2017-03-18] MEDS: ASPIRIN 81 MG TAB.CHEW PO SCH (09:10)
[2017-03-18] MEDS: ASCORBIC ACID 500 MG TABLET PO SCH (09:10)
[2017-03-18 09:27] VITALS: BP 121/58
[2017-03-18] MEDS ORDERED: Magnesium 1GM/D5W 100ML PREMIX 100 ML IV SCH (11:30)
[2017-03-18] MEDS ORDERED: POTASSIUM CHLORIDE 20 MEQ POWDER PACKET PO SCH (12:00)
[2017-03-18] MEDS: CEFTRIAXONE 1 G in IV D5W 50 ML IV SCH (15:36)
[2017-03-18] MEDS ORDERED: K PHOS NEUTRAL 250 MG TABLET PO ONE (16:00)
[2017-03-18 16:23] VITALS: BP 140/76
[2017-03-18 17:36] VITALS: BP 121/58
[2017-03-18] MEDS: BOOST PLUS FOOD-CHOCLATE 237 ML BOX PO SCH (18:00)
--- NOTE | 2017-03-18 18:10 | NUR ---
MS/RN CLOSING NOTE PATIENT IN BED IN STABLE CONDITION. A/O X 1, WITH EPISODES OF CONFUSION AND TRYING TO GET OUT OF BED UNASSISTED. NO SIGNS OF ACUTE DISTRESS. NO COMPLAIN OF PAIN OR DISCOMFORT. 1:1 SITTER AT BEDSIDE. ALL NEEDS ATTENDED TO. CALL LIGHT WITHIN REACH. WILL ENDORSE TO NEXT SHIFT FOR CONTINUITY OF CARE.
--- NOTE | 2017-03-18 19:10 | NUR ---
MS/RN NOTES RECEIVED PT. LYING IN BED. AWAKE, ALERT AND ORIENTED TO SELF. BREATHING EVEN AND UNLABORED ON ROOM AIR. NO SOB, RESPIRATORY DISTRESS OR COMPLAINTS OF PAIN NOTED AT THIS TIME. PT. WITH RIGHT AC PERIPHERAL IV PRESENT, PATENT AND INTACT ADMINISTERING TO PT. D5 1/2 NS @ 125 ML/HR. PT. WITH ENGLISH CATHETER PRESENT, PATENT AND INTACT DRAINING CLOUDY YELLOW URINE. PT. WITH SITTER PRESENT AT BEDSIDE. BED LOCKED AND IN LOWEST POSITION, SIDE RAILS UP X3, BED ALARM ON, WILL CONTINUE TO MONITOR.
[2017-03-18] MEDS: ATORVASTATIN 10 MG TABLET PO SCH (21:33)
[2017-03-18] MEDS: TAMSULOSIN 0.4 MG CAP.SR.24H PO SCH (21:33)
[2017-03-19] MEDS: IV D5/0.45 NACL 1,000 ML IV PRN ×2 (01:56→11:11)
[2017-03-19 04:00] VITALS: BP 121/66
--- NOTE | 2017-03-19 06:45 | NUR ---
MS/RN NOTES PT. IS LYING IN BED RESTING. BREATHING EVEN AND UNLABORED ON ROOM AIR. NO SOB, RESPIRATORY DISTRESS OR COMPLAINTS OF PAIN NOTED AT THIS TIME AND THROUGHOUT SHIFT. PT. WITH RIGHT AC PERIPHERAL IV PRESENT, PATENT AND INTACT ADMINISTERING TO PT. D5 1/2 NS @ 125 ML/HR. PT. WITH ENGLISH CATHETER PRESENT, PATENT AND INTACT DRAINING CLOUDY YELLOW URINE. PT. WITH SITTER PRESENT AT BEDSIDE. ALL PT. NEEDS MET. ALL DUE MEDICATIONS GIVEN. BED LOCKED AND IN LOWEST POSITION, SIDE RAILS UP X3, BED ALARM ON, WILL ENDORSE TO DAYSHIFT NURSE FOR CONTINUITY OF CARE.
[2017-03-19 07:35] LABS: CARBON DIOXIDE 24 mmol/L (21-32); CHLORIDE 115 mmol/L (98-107); CREATININE 1.2 mg/dL (0.6-1.3); GLUCOSE 96 mg/dL (74-106); MAGNESIUM 1.9 mg/dL (1.8-2.4); POTASSIUM 3.5 mmol/L (3.5-5.1); SODIUM SERUM 149 mmol/L (136-145); UREA NITROGEN, BLOOD 26 mg/dL (7-18)
[2017-03-19 08:00] VITALS: BP 123/52
[2017-03-19 08:09] LABS: *SPE A/G RATIO 0.9 (0.7-1.7); *SPE ALPHA-1-GLOBULIN 0.2 g/dL (0.0-0.4); *SPE ALPHA-2-GLOBULIN 0.7 g/dL (0.4-1.0); *SPE BETA GLOBULIN 0.7 g/dL (0.7-1.3); *SPE GLOBULIN, TOTAL 3.2 g/dL (2.2-3.9); *SPE M-SPIKE Not Observed g/dL (Not Observed); *SPEGAMMA GLOBULIN 1.6 g/dL (0.4-1.8)
[2017-03-19 08:25] LABS: INR 0.98 (0.87-1.13)
[2017-03-19 09:23] LABS: D-DIMER 5.04 mg/L(FEU (0.17-0.50)
--- NOTE | 2017-03-19 10:00 | NUR ---
CLINICAL INDICATION FOR F/CATH URINARY RETENTION.
[2017-03-19] MEDS: RIFAXIMIN 550 MG TABLET PO SCH ×2 (10:21→17:00)
[2017-03-19] MEDS: BOOST PLUS FOOD-CHOCLATE 237 ML BOX PO SCH ×2 (10:21→17:00)
[2017-03-19] MEDS: ASCORBIC ACID 500 MG TABLET PO SCH (10:21)
[2017-03-19] MEDS: DIVALPROEX SODIUM 125 MG CAP.SPRINK PO SCH ×3 (10:21→17:00)
[2017-03-19] MEDS: MULTIVIT, IRON, MIN NO. 8, FA 1 TAB PO SCH (10:22)
[2017-03-19] MEDS: QUETIAPINE FUMARATE 25 MG TABLET PO SCH ×4 (10:23→21:15)
[2017-03-19] MEDS: ASPIRIN 81 MG TAB.CHEW PO SCH (10:23)
--- NOTE | 2017-03-19 11:30 | NUR ---
RECEIVED PT.IV INFUSING,CONFUSED,REORIENTED FREQ. NEED OF WILIAM. WRIST RESTRAINTS WHEN REMOVED THROWING COFFE ACROSS THE ROOM AT ROOMATE.HAS SITTER.
[2017-03-19 16:00] VITALS: BP 135/66
[2017-03-19] MEDS: CEFTRIAXONE 1 G in IV D5W 50 ML IV SCH (17:38)
[2017-03-19 20:00] VITALS: BP 133/66
[2017-03-19] MEDS: TAMSULOSIN 0.4 MG CAP.SR.24H PO SCH (21:12)
[2017-03-19] MEDS: ATORVASTATIN 10 MG TABLET PO SCH (21:12)
[2017-03-20 04:00] VITALS: BP 129/72
[2017-03-20] MEDS: IV D5/0.45 NACL 1,000 ML IV PRN (04:42)
--- NOTE | 2017-03-20 06:22 | NUR ---
RN CLOSING NOTE PATIENT IN BED IN STABLE CONDITION. A/O X 1, WITH EPISODES OF CONFUSION AND TRYING TO GET OUT OF BED UNASSISTED.TRYING TO PULL ON TUBES. NO SIGNS OF ACUTE DISTRESS. NO COMPLAIN OF PAIN OR DISCOMFORT. 1:1 SITTER AT BEDSIDE. ALL NEEDS ATTENDED TO. CALL LIGHT WITHIN REACH. WILL ENDORSE TO NEXT SHIFT FOR CONTINUITY OF CARE.
[2017-03-20 07:04] LABS: BASOPHILS % (AUTO) 0.2 % (0.0-2.0); EOSINOPHILS # (AUTO) 0.3 /CMM (0.0-0.7); EOSINOPHILS % (AUTO) 4.2 % (0.0-6.0); HEMATOCRIT 28 % (39-51); HEMOGLOBIN 9.1 g/dL (13.5-17.5); LYMPHOCYTES # (AUTO) 0.6 /CMM (0.8-4.8); LYMPHOCYTES % (AUTO) 8.5 % (20.0-44.0); MEAN CORPUSCULAR HEMOGLOBIN 33 PG (26.0-33.0); MEAN CORPUSCULAR HGB CONC 33 g/dl (31.0-36.0); MEAN CORPUSCULAR VOLUME 100 fL (80-96); MONOCYTES # (AUTO) 0.6 /CMM (0.1-1.30); MONOCYTES % (AUTO) 7.9 % (2.0-12.0); NEUTROPHILS % (AUTO) 79.2 % (43.0-81.0); PLATELET COUNT (AUTO) 144 /CMM (150-450); RDW COEFFICIENT OF VARIATION 19.2 (11.5-15.0); RED BLOOD CELL COUNT(AUTO) 2.76 MIL/uL (4.5-6.0); WHITE BLOOD COUNT (AUTO) 7.5 K/uL (4.3-11.0)
--- NOTE | 2017-03-20 07:45 | NUR ---
RN MED-SURG NOTE: RECEIVED PATIENT IN BED, AWAKE, AND NOTED WITH CONFUSION. RESPIRATION EVEN AND UNLABORED. AGGRESSIVE TOWARDS STAFF AND NOTED TRYING TO PULL OUT IV LINE AND ENGLISH CATH. (B) SOFT WRIST RESTRAINT NOTED IN PLACED. ON SITTER 1:1. ENGLISH CATHETER NOTED W/ YELLOW URINE DRAINING TO GRAVITY. BED ALARM AND LOCKED AT ALL TIMES. HOB ELEVATED. CALL LIGHT WITHIN REACH.
[2017-03-20 07:46] LABS: ALANINE AMINOTRANSFERASE 57 U/L (12-78); ALBUMIN 1.7 g/dL (3.4-5.0); ALKALINE PHOSPHATASE 116 U/L (46-116); ASPARTATE AMINOTRANSFERASE 72 U/L (15-37); BILIRUBIN,TOTAL 0.2 mg/dL (0.2-1.0); CALCIUM, SERUM 8.6 mg/dL (8.5-10.1); CARBON DIOXIDE 26 mmol/L (21-32); CHLORIDE 110 mmol/L (98-107); CREATININE 1.2 mg/dL (0.6-1.3); GLUCOSE 139 mg/dL (74-106); MAGNESIUM 1.6 mg/dL (1.8-2.4); PHOSPHORUS 3.1 mg/dL (2.5-4.9); POTASSIUM 3.5 mmol/L (3.5-5.1); SODIUM SERUM 142 mmol/L (136-145); TOTAL PROTEIN, SERUM 5.6 g/dL (6.4-8.2); UREA NITROGEN, BLOOD 20 mg/dL (7-18)
[2017-03-20 08:00] VITALS: BP 120/83
[2017-03-20] MEDS: MULTIVIT, IRON, MIN NO. 8, FA 1 TAB PO SCH (08:38)
[2017-03-20] MEDS: ASCORBIC ACID 500 MG TABLET PO SCH (08:38)
[2017-03-20] MEDS: BOOST PLUS FOOD-CHOCLATE 237 ML BOX PO SCH ×2 (08:38→17:08)
[2017-03-20] MEDS: DIVALPROEX SODIUM 125 MG CAP.SPRINK PO SCH ×3 (08:38→17:09)
[2017-03-20] MEDS: RIFAXIMIN 550 MG TABLET PO SCH ×2 (08:39→17:08)
[2017-03-20] MEDS: ASPIRIN 81 MG TAB.CHEW PO SCH (08:39)
[2017-03-20] MEDS: QUETIAPINE FUMARATE 25 MG TABLET PO SCH ×4 (08:42→21:00)
[2017-03-20] MEDS: Magnesium 1GM/D5W 100ML PREMIX 100 ML IV SCH ×2 (10:13→11:34)
--- NOTE | 2017-03-20 10:15 | NUR ---
RN MED-SURG NOTE: PATIENT WAS SEEN AND INTERVIEWED BY DR. ESCOTO, PSYCHIATRIST. UPON INTERVIEW PT WAS NOT ABLE TO RESPOND TO THE MD'S QUESTION.
[2017-03-20] MEDS: CEFTRIAXONE 1 G in IV D5W 50 ML IV SCH (14:19)
[2017-03-20 16:00] VITALS: BP 111/64
--- NOTE | 2017-03-20 19:45 | NUR ---
RN MED-SURG NOTE: PATIENT IN BED, AWAKE, AND NOTED WITH CONFUSION. RESPIRATION EVEN AND UNLABORED. NO SOB. STILL NOTED W/ AGGRESSIVE TOWARDS STAFF AND STILL TRYING TO PULL OUT IV LINE AND ENGLISH CATH. (B) SOFT WRIST RESTRAINT NOTED IN PLACED. ON SITTER 1:1. ENGLISH CATHETER NOTED PATENT AND INTACT W/ YELLOW URINE DRAINING TO GRAVITY. BED ALARM AND LOCKED AT ALL TIMES. HOB ELEVATED. CALL LIGHT WITHIN REACH. REPORT GIVEN TO ELLE HUMPHREY FOR CONTINUITY OF CARE.
[2017-03-20 20:00] VITALS: BP 113/62
--- NOTE | 2017-03-20 20:00 | NUR ---
RN GAVE REPORT TO FRANCESCA ALMEIDA IN [facility] FOR CONTINUE OF CARE.
[2017-03-20] MEDS ORDERED: ONDANSETRON 4 MG TAB.RAPDIS SL PRN (20:30)
--- NOTE | 2017-03-20 20:30 | NUR ---
RN NOTE PT HAS COFFEE GROUND EMESIS X 2. ASPIRATION PRECAUTIONS IMPLEMENTED AND CARRIED OUT. WILL NOTIFY MD FOR ORDERS.
[2017-03-20] MEDS ORDERED: LEVO500T75 PO (20:32)
--- NOTE | 2017-03-20 21:00 | NUR ---
RN NOTE SPOKE WITH AMANDA GRANADOS NP AND NOTIFIED OF PT HAVING MULTIPLE COFFEE GROUND EMESIS. ORDERS ARE TO GIVE ZOFRAN IV 4MG Q6H FOR EMESIS. ALSO CT ABDOMEN WITHOUT CONTRAST. ALSO NOTIFIED THAT PT IS VERY AGITATED AND RECEIVED ATIVAN 1MG IV Q6H PRN. READBACK ORDERS PERFORMED. WILL CONTINUE TO MONITOR PT.
[2017-03-20 21:40] LABS: BASOPHILS % (AUTO) 0.1 % (0.0-2.0); EOSINOPHILS # (AUTO) 0.1 /CMM (0.0-0.7); EOSINOPHILS % (AUTO) 0.6 % (0.0-6.0); HEMATOCRIT 28 % (39-51); HEMOGLOBIN 9.3 g/dL (13.5-17.5); LYMPHOCYTES # (AUTO) 0.7 /CMM (0.8-4.8); MEAN CORPUSCULAR HEMOGLOBIN 33 PG (26.0-33.0); MEAN CORPUSCULAR HGB CONC 33 g/dl (31.0-36.0); MEAN CORPUSCULAR VOLUME 100 fL (80-96); MONOCYTES # (AUTO) 0.9 /CMM (0.1-1.30); MONOCYTES % (AUTO) 5.8 % (2.0-12.0); NEUTROPHILS # (AUTO) 13.1 /CMM (1.8-8.9); NEUTROPHILS % (AUTO) 88.5 % (43.0-81.0); PLATELET COUNT (AUTO) 169 /CMM (150-450); RDW COEFFICIENT OF VARIATION 19.1 (11.5-15.0); RED BLOOD CELL COUNT(AUTO) 2.84 MIL/uL (4.5-6.0); WHITE BLOOD COUNT (AUTO) 14.8 K/uL (4.3-11.0)
[2017-03-20] MEDS: TAMSULOSIN 0.4 MG CAP.SR.24H PO SCH (22:00)
[2017-03-20] MEDS: ATORVASTATIN 10 MG TABLET PO SCH (22:00)
[2017-03-20 22:24] LABS: CALCIUM, SERUM 9.1 mg/dL (8.5-10.1); CARBON DIOXIDE 27 mmol/L (21-32); CHLORIDE 106 mmol/L (98-107); CREATININE 1.4 mg/dL (0.6-1.3); GLUCOSE 191 mg/dL (74-106); POTASSIUM 3.9 mmol/L (3.5-5.1); SODIUM SERUM 141 mmol/L (136-145); UREA NITROGEN, BLOOD 27 mg/dL (7-18)
[2017-03-20 22:28] LABS: MAGNESIUM 2.1 mg/dL (1.8-2.4); PHOSPHORUS 3.4 mg/dL (2.5-4.9)
[2017-03-20] MEDS: LORAZEPAM INJ 2 MG/ML VIAL IV PRN (22:40)
[2017-03-20] MEDS: ONDANSETRON HCL/PF 4 MG/2 ML VIAL IV PRN (22:40)
[2017-03-21] MEDS: ONDANSETRON HCL/PF 4 MG/2 ML VIAL IV PRN (03:25)
--- NOTE | 2017-03-21 04:16 | NUR ---
PT WOKE UP AND STARTED VOMITING COFFEE- GROUND EMESIS. ZOFRAN GIVEN BUT NOT EFFECTIVE AND 2ND PROJECTILE VOMITING HAPPEN WHEN PT GET TURNED DURING CLEANED, PAGED MD BRUSH STAINER,SPOKE TO DR. DE ANDA AND READ TO DR. DE ANDA THE RESULT OF CT OF THE ABDOMEN. MD ORDER TO PLACED NGT ,CONNECT TO LOW INTERMITTENT SUCTION UPON CONFIRMATION OF PLACEMENT. STAT PCXR COMPLETED AND AWAITING FOR RESULT. PT MADE COMFORTABLE,SITTING UP IN BED NGT TO RIGHT NOSTRIL SECURED WITH TAPE.CONTINUE WITH IV FLUIDS, VSS BP 113/61 HR 111,SPO2 95% KEPT ON 2 LITERS.R=18.
--- NOTE | 2017-03-21 05:45 | NUR ---
XRAY RESULTED WITH NGT IN THE STOMACH, STARTED LOW INTERMITTENT SUCTION AND NOTED FLUID DRAINING 200CC DARK BILIOUS FLUID, PT ASLEEP AT THIS TIME, RESTRAINT IN PLACED SITTER AT BEDSIDE, KEPT ON OXYGEN 2 LITERS TO KEEP SPO2 ABOVE 92%, NOTED PT DESATS 88-91% ON ROOM AIR AFTER NGT PLACEMENT.WILL CONTINUE TO MONITOR,VSS,AFEBRILE.
--- NOTE | 2017-03-21 06:04 | NUR ---
GASTRIC DRAINAGE FROM NGT NOTED 900CC, SUCTION LOWER TO 50MMHG INTERMITTENT SUCTION. CHARGE NURSE RADHA MADE AWARE.WILL CONTINUE TO MONITOR
[2017-03-21] MEDS: IV D5/0.45 NACL 1,000 ML IV PRN ×2 (06:07→21:50)
[2017-03-21 08:42] VITALS: BP 120/65
[2017-03-21] MEDS: BOOST PLUS FOOD-CHOCLATE 237 ML BOX PO SCH ×2 (08:44→17:00)
[2017-03-21] MEDS: DIVALPROEX SODIUM 125 MG CAP.SPRINK PO SCH ×3 (09:05→17:00)
[2017-03-21] MEDS: QUETIAPINE FUMARATE 25 MG TABLET PO SCH ×4 (09:06→21:30)
[2017-03-21] MEDS: MULTIVIT, IRON, MIN NO. 8, FA 1 TAB PO SCH (09:06)
[2017-03-21] MEDS: RIFAXIMIN 550 MG TABLET PO SCH ×2 (09:06→17:00)
[2017-03-21] MEDS: ASCORBIC ACID 500 MG TABLET PO SCH (09:06)
[2017-03-21] MEDS: ASPIRIN 81 MG TAB.CHEW PO SCH (09:06)
[2017-03-21 09:30] LABS: EOSINOPHILS # (AUTO) 0.1 /CMM (0.0-0.7); EOSINOPHILS % (AUTO) 0.4 % (0.0-6.0); HEMATOCRIT 27 % (39-51); HEMOGLOBIN 9.3 g/dL (13.5-17.5); LYMPHOCYTES % (AUTO) 6.5 % (20.0-44.0); MEAN CORPUSCULAR HEMOGLOBIN 33 PG (26.0-33.0); MEAN CORPUSCULAR HGB CONC 34 g/dl (31.0-36.0); MEAN CORPUSCULAR VOLUME 98 fL (80-96); MONOCYTES # (AUTO) 1.2 /CMM (0.1-1.30); MONOCYTES % (AUTO) 7.4 % (2.0-12.0); NEUTROPHILS # (AUTO) 13.8 /CMM (1.8-8.9); NEUTROPHILS % (AUTO) 85.7 % (43.0-81.0); PLATELET COUNT (AUTO) 208 /CMM (150-450); RDW COEFFICIENT OF VARIATION 18.4 (11.5-15.0); WHITE BLOOD COUNT (AUTO) 16.1 K/uL (4.3-11.0)
[2017-03-21 09:48] LABS: CALCIUM, SERUM 8.9 mg/dL (8.5-10.1); CARBON DIOXIDE 30 mmol/L (21-32); CHLORIDE 107 mmol/L (98-107); CREATININE 1.4 mg/dL (0.6-1.3); GLUCOSE 92 mg/dL (74-106); PHOSPHORUS 3.3 mg/dL (2.5-4.9); POTASSIUM 3.4 mmol/L (3.5-5.1); SODIUM SERUM 144 mmol/L (136-145); UREA NITROGEN, BLOOD 35 mg/dL (7-18)
[2017-03-21] MEDS: CEFTRIAXONE 1 G in IV D5W 50 ML IV SCH (15:00)
--- NOTE | 2017-03-21 19:30 | NUR ---
RN OPENING NOTES PT AWAKE AND RESTING IN BED. NO APPARENT S/S OF PAIN, DISTRESS OR SOB AT THIS TIME. PT IS ON 5150 HOLD AND HAS BILATERAL SOFT WRIST RESTRAINTS. PT HAS A L FOREARM IV RUNNING D51/2 NS @70 ML/HR. PT DEGROOT AN NGT. PT HAS A ENGLISH CATHETER INTACT AND DRAINING WELL. SAFETY PRECAUTIONS IN PLACE. WILL CONTINUE TO MONITOR.
[2017-03-21 20:00] VITALS: BP 125/66
[2017-03-21] MEDS: TAMSULOSIN 0.4 MG CAP.SR.24H PO SCH (21:30)
[2017-03-21] MEDS: ATORVASTATIN 10 MG TABLET PO SCH (21:30)
--- NOTE | 2017-03-22 07:19 | NUR ---
RN CLOSING NOTES PT AWAKE AND RESTING IN BED. NO SIGNIFICANT CHANGES OVERNIGHT. NO APPARENT S/S OF PAIN, DISTRESS OR SOB AT THIS TIME. PT IS ON 5150 HOLD AND HAS BILATERAL SOFT WRIST RESTRAINTS. PT HAS A L FOREARM IV RUNNING D51/2 NS @70 ML/HR. PT HAS AN NGT INTERMITTENT SUCTIONING OUTPUT DARK BROWN 300ML THROUGHOUT SHIFT. PT HAS A ENGLISH CATHETER OUTPUT 300ML, INTACT AND DRAINING WELL. SAFETY PRECAUTIONS IN PLACE. WILL ENDORSE TO DAY SHIFT NURSE FOR CONTINUITY OF CARE.
[2017-03-22 08:00] VITALS: BP 125/63
[2017-03-22] MEDS: BOOST PLUS FOOD-CHOCLATE 237 ML BOX PO SCH ×2 (08:00→17:00)
--- NOTE | 2017-03-22 08:27 | NUR ---
FOUNTAIN CLERK OPENING NOTE RECEIVED BEDSIDE SBAR REPORT ON THE PATIENT. PATIENT IS A/O X1, AWAKE, AGITATED, COMBATIVE. PATIENT HAS A 1:1 SITTER. BED IS LOCKED, IN LOWEST POSITION, SIDE RAILS UP X3. NO S/S OF DISCOMFORT/PAIN. CHEST IS RISING EQUALLY BILATERALLY. PATIENT IS ON ROOM AIR. CALL LIGHT WITHIN REACH. EDUCATED THE PATIENT TO USE THE CALL LIGHT TO CALL FOR ASSISTANCE. VERBALIZED UNDERSTAND. WILL CONTINUE TO ASSES/MONITOR THROUGHOUT THE SHIFT.
--- NOTE | 2017-03-22 08:37 | NUR ---
PATIENT IS CURRENTLY NPO. HOLDING BOOST AND MEDS AT THIS TIME UNTIL FURTHER CLARIFICATION WITH THE DOCTOR.
[2017-03-22] MEDS: ASPIRIN 81 MG TAB.CHEW PO SCH (09:00)
[2017-03-22] MEDS: MULTIVIT, IRON, MIN NO. 8, FA 1 TAB PO SCH (09:00)
[2017-03-22] MEDS: DIVALPROEX SODIUM 125 MG CAP.SPRINK PO SCH ×2 (09:00→13:00)
[2017-03-22] MEDS: RIFAXIMIN 550 MG TABLET PO SCH ×2 (09:00→17:00)
[2017-03-22] MEDS: ASCORBIC ACID 500 MG TABLET PO SCH (09:00)
[2017-03-22] MEDS: QUETIAPINE FUMARATE 25 MG TABLET PO SCH ×2 (09:00→13:00)
--- NOTE | 2017-03-22 09:35 | NUR ---
KAREN, THE SURGICAL MEASURING CLERK AT THE BEDSIDE. CONFIRMED PATIENT'S NPO STATUS. BETO JONES HOLD ALL ORAL MEDS AT THIS TIME.
[2017-03-22 11:07] LABS: BASOPHILS % (AUTO) 0.2 % (0.0-2.0); EOSINOPHILS # (AUTO) 0.3 /CMM (0.0-0.7); EOSINOPHILS % (AUTO) 3.5 % (0.0-6.0); HEMATOCRIT 24 % (39-51); HEMOGLOBIN 7.8 g/dL (13.5-17.5); MEAN CORPUSCULAR HEMOGLOBIN 33 PG (26.0-33.0); MEAN CORPUSCULAR HGB CONC 33 g/dl (31.0-36.0); MEAN CORPUSCULAR VOLUME 100 fL (80-96); MONOCYTES # (AUTO) 0.9 /CMM (0.1-1.30); MONOCYTES % (AUTO) 9.1 % (2.0-12.0); NEUTROPHILS # (AUTO) 7.4 /CMM (1.8-8.9); NEUTROPHILS % (AUTO) 77.2 % (43.0-81.0); PLATELET COUNT (AUTO) 227 /CMM (150-450); RDW COEFFICIENT OF VARIATION 20.4 (11.5-15.0); RED BLOOD CELL COUNT(AUTO) 2.37 MIL/uL (4.5-6.0); WHITE BLOOD COUNT (AUTO) 9.6 K/uL (4.3-11.0)
[2017-03-22 11:23] LABS: ALANINE AMINOTRANSFERASE 44 U/L (12-78); ALBUMIN 1.9 g/dL (3.4-5.0); ALKALINE PHOSPHATASE 100 U/L (46-116); ASPARTATE AMINOTRANSFERASE 45 U/L (15-37); BILIRUBIN,TOTAL 0.3 mg/dL (0.2-1.0); CALCIUM, SERUM 8.7 mg/dL (8.5-10.1); CARBON DIOXIDE 32 mmol/L (21-32); CHLORIDE 108 mmol/L (98-107); CREATININE 1.4 mg/dL (0.6-1.3); GLUCOSE 98 mg/dL (74-106); POTASSIUM 3.6 mmol/L (3.5-5.1); SODIUM SERUM 145 mmol/L (136-145); TOTAL PROTEIN, SERUM 5.7 g/dL (6.4-8.2); UREA NITROGEN, BLOOD 28 mg/dL (7-18)
[2017-03-22 12:00] VITALS: BP 121/51
[2017-03-22] MEDS: IV D5/0.45 NACL 1,000 ML IV PRN ×2 (12:46→12:55)
--- NOTE | 2017-03-22 13:10 | NUR ---
PATIENT IS NPO
--- NOTE | 2017-03-22 13:11 | NUR ---
PER DR PELAEZ CHANGE DEPAKOTE TO DEPAKENE IV PUSH. WILL FOLLOW ORDER RECEIVED.
--- NOTE | 2017-03-22 14:40 | NUR ---
CALLED PHARMACY TO DELIVER DEPAKON. WILL ADMINISTER ONCE AVAILABLE
[2017-03-22] MEDS: CEFTRIAXONE 1 G in IV D5W 50 ML IV SCH (14:55)
--- NOTE | 2017-03-22 17:32 | NUR ---
PATIENT IS NPO. HOLD ORAL MEDS
[2017-03-22] MEDS: NS 0.9% IV SCH ×2 (17:40→21:31)
[2017-03-22] MEDS: VALPROATE IV SCH ×2 (17:40→21:31)
--- NOTE | 2017-03-22 19:00 | NUR ---
RN NOTES: RECEIVED LYING ON BED, WITH 1:1 SITTER, PATIENT LOOKS CONFUSED AND AGITATED, TRYING TO PULL OUT HIS BILATERAL SOFT RESTRAINT, PER ENDORSEMENT PATIENT PULLED OUT HIS NGT AND IV CANNULA,BOTH FOR REINSERTION, ENGLISH CATH IN SITE DRAINING INTO DARK YELLOWISH COLORED URINE AT 150CC LEVEL;KEPT ON CLOSE WATCH.FALL,SAFETY AND ASPIRATION PRECAUTION OBSERVE, SPO2-92% ON O2 INHALATION VIA NC.KEPT BILATERAL RESTRAIN IN PLACE, NO REDNESS OR SIGN OF SKIN PROBLEM NOTED ON THE RESTRAIN SITE.WILL CONTINUE TO MONITOR.
--- NOTE | 2017-03-22 19:15 | NUR ---
PATIENT PULLED OUT HIS IV AND NG TUBE. IV CATHETER REMOVED WITH THE TIP INTACT. OCLUSIVE DRESSING APPLIED. ENDORSED TO THE MARINE PROPULSION TECHNICIAN NURSE FOR IZAIAH.
--- NOTE | 2017-03-22 19:34 | NUR ---
RN CLOSING NOTENOTE GAVE BEDSIDE SBAR REPORT ON THE PATIENT. PATIENT IS A/O X1, AWAKE, AGITATED, COMBATIVE. PATIENT HAS A 1:1 SITTER. BED IS LOCKED, IN LOWEST POSITION, SIDE RAILS UP X3. NO S/S OF DISCOMFORT/PAIN. CHEST IS RISING EQUALLY BILATERALLY. PATIENT IS ON ROOM AIR. CALL LIGHT WITHIN REACH. EDUCATED THE PATIENT TO USE THE CALL LIGHT TO CALL FOR ASSISTANCE. NIGHT NURSE AT THE BEDSIDE REINSERTING THE IV AND NG TUBE. ENDORSED FOR IZAIAH.
--- NOTE | 2017-03-22 19:45 | NUR ---
RN NOTES: NGT WAS OUT UPON ENDORSEMENT, RE-INSERTED BY RN,PLACEMENT WAS CHECK BY RN AND CN/RN, POSITIVE GURGLING SOUND ON THE EPIGASTRIC AREA,NGT ATTACHED TO LOW INTERMITTENT SUCTION AND ABLE TO OBTAIN GASTRIC SECRETION.BILATERAL SOFT RESTRAINT IN PLACE, WITH 1;1 SITTER AT BED SIDE.
[2017-03-22 20:00] VITALS: BP 137/68
[2017-03-22] MEDS: TAMSULOSIN 0.4 MG CAP.SR.24H PO SCH (21:31)
[2017-03-22] MEDS: ATORVASTATIN 10 MG TABLET PO SCH (21:32)
--- NOTE | 2017-03-22 21:37 | NUR ---
RN NOTES: IV CANNULA WAS OUT, RN CN INSERTED ON THE LFA G#22 PATENT WITH GOOD BACK FLOW, DUE IV MEDS GIVEN, IVF RESUMED D5 1/2 NS AT 70 ML/HR, VIA INFUSION PUMP.
[2017-03-22] MEDS: LORAZEPAM INJ 2 MG/ML VIAL IV PRN (21:59)
--- NOTE | 2017-03-22 22:06 | NUR ---
RN NOTES: PATIENT IS NON STOP TALKING AND DISTURBING HIS ROOM MATE, ON SOFT RESTRAINT TRYING TO KICK AND INCREASING IN HIS AGITATION, PRN ATIVAN GIVEN,KEPT IN COMFORTABLE POSITION.SITTE AT BED SIDE 1;1.CALL LIGHT WITHIN EASY REACH.
--- NOTE | 2017-03-23 00:17 | NUR ---
RN NOTES: ABLE TO SLEEP AND REST AT SMALL INTERVALS, KEPT ON CLOSE WATCH, NO AGITATION NOTED AT THIS TIME.
[2017-03-23] MEDS: VALPROATE IV SCH (04:16)
[2017-03-23] MEDS: NS 0.9% IV SCH (04:16)
[2017-03-23 04:33] VITALS: BP 94/61
--- NOTE | 2017-03-23 05:44 | NUR ---
RN NOTES: NGT INTACT ON THE RIGHT NOSTRIL, ABLE TO DRAIN 500CC OF GASTRIC FLUID, BROWN/PINKISH IN COLOR NOTED MIX WITH SEDIMENTS.PATIENT WAS SLEEPING COMFORTABLY IN BED,DUE IV MEDICATION GIVEN.
--- NOTE | 2017-03-23 06:22 | NUR ---
RN NOTES: LATE ENTRY FOR ORAL MEDICATION: -FLOMAX AND LIPITOR SCANNED, THEN WASTED, UNABLE TO TAKE ORALLY, ON NPO.
--- NOTE | 2017-03-23 06:44 | NUR ---
RN NOTES: ASLEEP IN BED, ON 1;1 SITTER WITH SOFT RESTRAIN ON BOTH HANDS, NGT INTATC,ENGLISH CATH DRAINING WELL, ENDORSED FOR CONTINUITY OF CARE.
--- NOTE | 2017-03-23 07:35 | NUR ---
RN M/S NOTE: RECEIVED PT IN BED, AWAKE, ALERT TO HIS NAME AND NOTED WITH CONFUSION. RESPIRATION EVEN AND UNLABORED. ON O2 2L/MIN VIA NC, SATURATING 99%. HOB ELEVATED. NOTED W/ NGT IN PLACED ON THE (R) NARE W/ LOW INTERMITTENT SUCTION. DRAINAGE WAS BROWN IN COLOR. PATIENT NOT ON ANY FORM OF DISTRESS OR PAIN. W/ BILATERAL SOFT WRIST RESTRAINT DUE TO PT PULLING ON HIS NGT, IV LINE AND ENGLISH CATHETER. F/C IN PLACED DRAINING TO GRAVITY W/ YELLOW URINE. NOTED W/ A SITTER AT THE BEDSIDE. CALL LIGHT WITHIN REACH. NEEDS ANTICIPATED. BED ALARM AND LOCKED AT ALL TIMES.
[2017-03-23 08:00] VITALS: BP 107/58
[2017-03-23] MEDS: BOOST PLUS FOOD-CHOCLATE 237 ML BOX PO SCH ×2 (08:00→17:00)
[2017-03-23] MEDS: MULTIVIT, IRON, MIN NO. 8, FA 1 TAB PO SCH (09:30)
[2017-03-23] MEDS: ASPIRIN 81 MG TAB.CHEW PO SCH (09:30)
[2017-03-23] MEDS: ASCORBIC ACID 500 MG TABLET PO SCH (09:30)
[2017-03-23] MEDS: RIFAXIMIN 550 MG TABLET PO SCH ×2 (09:30→17:00)
[2017-03-23] MEDS: risperiDONE-M 0.5 MG TAB.RAPDIS PO SCH ×2 (10:45→17:19)
--- NOTE | 2017-03-23 10:45 | NUR ---
RN M/S NOTE: SEEN BY DR. EVANS AND PER , SHE WANTED THE PATIENT TO RECEIVE THE PSYCH MEDS THROUGH . RISPERDAL WAS GIVEN.
--- NOTE | 2017-03-23 11:45 | NUR ---
RN M/S NOTE: PATIENT PULLED OUT HIS NGT ON THE (R) NARE WHILE REPOSITIONING. DR. PRASAD AWARE AND NGT WAS RE-INSERTED ON THE (R) NARE AND STAT CHEST X-RAY FOR NGT VERIFICATION PLACEMENT WAS ORDERED. RE-ORIENTED THE PATIENT AND INFORMED HIM THE IMPORTANCE OF THE NGT. PATIENT REMAINED CALM AND SITTER PRESENT AT BEDSIDE FOR FURTHER SUPERVISION.
[2017-03-23] MEDS: IV D5/0.45 NACL 1,000 ML IV PRN (12:34)
[2017-03-23] MEDS: VALPROATE 250 MG in IV NS 0.9% 100 ML IV SCH ×2 (13:47→21:59)
--- NOTE | 2017-03-23 15:00 | NUR ---
RN M/S NOTE: DR. PRASAD AWARE THAT PT'S NGT WAS IN PLACED IN THE STOMACH AND VERIFIED VIA CHEST X-RAY.
[2017-03-23] MEDS: CEFTRIAXONE 1 G in IV D5W 50 ML IV SCH (15:01)
[2017-03-23] MEDS: LORAZEPAM INJ 2 MG/ML VIAL IV PRN (15:22)
[2017-03-23] MEDS ORDERED: DIATR MEGLU/DIATRIZOATE SODIUM 120 ML BOTTLE (GASTROGRAPHIN) ONE (15:55)
[2017-03-23 16:00] VITALS: BP 142/67
--- NOTE | 2017-03-23 19:10 | NUR ---
RN NOTE RECEIVED PATIENT IN THE BED, SITTER IS BY BEDSIDE, NG TUBE IS OUT, ACCORDING TO SITTER WHILE SHE WAS CHANGING PATIENT, PATIENT PULLED OUT NG-TUBE, NOTIFIED CHARGE NURSE MILAGRO, HE SAID HE WILL REPLACE IT, NO ACUTE DISTRESS NOTED, NPO, LFA 22 GAUGE, ONGOING IV.FLUIDS, SITTER 1:1 IS BY BEDSIDE, ALL SAFETY MEASURES TAKED, CALL LIGHT WITHIN REACH, ALL BELONGINGS WITHIN REACH, BED IN THE LOWEST POSITION, WILL CONTINUE TO MONITOR PATIENT
--- NOTE | 2017-03-23 19:20 | NUR ---
RN M/S NOTE: CALLED AND LEFT MESSAGE TO BROTHER ECHOLS RE: THE PATIENT'S CT ABD W/ CONTRAST. PATIENT ON STABLE CONDITION. NOTED W/ B SOFT WRIST RESTRAINT. REMAINED ON 1:1 SITTER. CALL LIGHT WITHIN REACH. NGT ON LOW INTERMITTENT SUCTION W/ BROWN OUTPUT. NO S/S OF PAIN. BED ALARM AND LOCKED AT ALL TIMES. ENDORSED TO PM SHIFT NURSE RE: PT'S CT ABD W/ CONTRAST TONIGHT. AND TO AWAIT THE CALL BACK OF THE BROTHER FOR VERBAL CONSENT.
[2017-03-23 20:00] VITALS: BP 120/58
--- NOTE | 2017-03-23 20:17 | NUR ---
rn note ng tube placed with a charge nurse, chest x-ray to confirm was placed
[2017-03-23] MEDS: TAMSULOSIN 0.4 MG CAP.SR.24H PO SCH (22:00)
[2017-03-23] MEDS: ATORVASTATIN 10 MG TABLET PO SCH (22:00)
[2017-03-23] MEDS ORDERED: DIATR MEGLU/DIATRIZOATE SODIUM 30 ML BOTTLE (GASTROGRAPHIN) ONE (22:28)
[2017-03-24] MEDS: LORAZEPAM INJ 2 MG/ML VIAL IV PRN (00:35)
--- NOTE | 2017-03-24 01:40 | NUR ---
RN NOTE VISUAL CHECKS FOR ACUTE MEDICAL RESTRAINTS PROVIDED, RELEASE RESTRAINTS Q 2 HOURS, CHECK FOR CIRCULATION, PULSES WITHIN NORMAL LIMITS, CIRCULATIONS WITHIN NORMAL LIMITS, WILL CONTINUE TO MONITOR PATIENT
[2017-03-24 04:00] VITALS: BP 136/62
[2017-03-24] MEDS: IV D5/0.45 NACL 1,000 ML IV PRN (05:33)
[2017-03-24] MEDS: VALPROATE 250 MG in IV NS 0.9% 100 ML IV SCH ×3 (05:34→21:39)
--- NOTE | 2017-03-24 07:00 | NUR ---
RN NOTE NO ACUTE CHANGES DURING MY SHIFT, NO RESPIRATORY DISTRESS NOTED, NG TUBE WAS PLACED BY CHARGE NURSE, SITTER IS BY BEDSIDE, ONGOING IV FLUIDS, ALL SAFETY MEASURES TAKEN, PROVIDED REPORT TO AM NURSE
[2017-03-24 07:19] LABS: BASOPHILS % (AUTO) 0.1 % (0.0-2.0); EOSINOPHILS # (AUTO) 0.2 /CMM (0.0-0.7); EOSINOPHILS % (AUTO) 3.6 % (0.0-6.0); HEMATOCRIT 21 % (39-51); LYMPHOCYTES # (AUTO) 0.7 /CMM (0.8-4.8); LYMPHOCYTES % (AUTO) 11.2 % (20.0-44.0); MEAN CORPUSCULAR HEMOGLOBIN 34 PG (26.0-33.0); MEAN CORPUSCULAR HGB CONC 34 g/dl (31.0-36.0); MEAN CORPUSCULAR VOLUME 100 fL (80-96); MONOCYTES # (AUTO) 0.7 /CMM (0.1-1.30); MONOCYTES % (AUTO) 10.5 % (2.0-12.0); NEUTROPHILS # (AUTO) 4.8 /CMM (1.8-8.9); NEUTROPHILS % (AUTO) 74.6 % (43.0-81.0); PLATELET COUNT (AUTO) 232 /CMM (150-450); RDW COEFFICIENT OF VARIATION 20.3 (11.5-15.0); WHITE BLOOD COUNT (AUTO) 6.5 K/uL (4.3-11.0)
[2017-03-24 08:00] VITALS: BP 133/62
[2017-03-24] MEDS: BOOST PLUS FOOD-CHOCLATE 237 ML BOX PO SCH ×2 (08:00→16:40)
--- NOTE | 2017-03-24 08:01 | NUR ---
MS RN NOTE PATIENT IN BED , ALL NEEDS ATTENDED, WITH N G TUBE TO LOWER INTERMITTED SUCTION , NO DRAINAGE NOTED AT THI TIME, CHEST X RAY DOING NOW , WITH SOFT RESTRAIN ORDERED BILATERAL ON 2L NC , NO SOB NOTED , WITH ENGLISH CATH TO GRAVITY WITH YELLOW COLOR URINE, ON NPO STATUS , ON IVF ORDERED LT FA HL INTACT , BED IN LOWEST AND LOCKED POSITION , WILL CONT TO MONITOR CLOSELY
[2017-03-24] MEDS: ASCORBIC ACID 500 MG TABLET PO SCH ×2 (08:33→09:00)
[2017-03-24] MEDS: ASPIRIN 81 MG TAB.CHEW PO SCH ×2 (08:33→09:00)
[2017-03-24] MEDS: MULTIVIT, IRON, MIN NO. 8, FA 1 TAB PO SCH ×2 (08:34→09:00)
[2017-03-24] MEDS: risperiDONE-M 0.5 MG TAB.RAPDIS PO SCH ×2 (08:34→16:35)
[2017-03-24] MEDS: RIFAXIMIN 550 MG TABLET PO SCH ×3 (08:34→16:35)
--- NOTE | 2017-03-24 10:05 | NUR ---
MS RN NOTE MORNING MEDS HOLD AT THIS TIME ,PATIENT ON NPO, WILL F\U
--- NOTE | 2017-03-24 11:14 | NUR ---
MS RN NOTE SEEN BY DR SYLVESTER NOTIFIED THAT HG 7.0 NO ORDER FOR BLOOD TRANSFUSION AT THIS TIME, STATED THAT POSSIBLE TO REMOVE N G TUBE Addendum: 03/24/17 at 1125 by KATYA DUNLAP RN DR MOSS AWARE THAT T 94.4 EARLIER AND NOW 96.7
--- NOTE | 2017-03-24 12:42 | NUR ---
MS RN NOTE T 97.5 AT THIS TIME WILL CONT TO MONITOR CLOSELY
--- NOTE | 2017-03-24 14:00 | NUR ---
MS RN NOTE PER DR OSMAR MIGUEL TO REMOVE N G TUBE AND STOP LOWER INTERMITTED SUCTION,
--- NOTE | 2017-03-24 14:00 | NUR ---
MS RN NOTE NEW MID LINE INSERTED ORDERED MACHO 18 ON RT UPPER ARM
[2017-03-24] MEDS: CEFTRIAXONE 1 G in IV D5W 50 ML IV SCH (14:23)
--- NOTE | 2017-03-24 14:51 | NUR ---
MS RN NOTE UNABLE TO REMOVE RESTRAIN, STILL AT RISK TO REMOVE ALL LINE ,WILL MONITOR CLOSELY
[2017-03-24 16:00] VITALS: BP 158/65
--- NOTE | 2017-03-24 18:00 | NUR ---
MS RN NOTE DR RICO AT BEDSIDE AWARE THAT HG 7.0 AWARE THAT ,WILL COLLECT STOOL FOR OB, ALSO PROTONIX IVP GIVEN ORDERED ,WILL CONT TO MONITOR CLOSELY. NO ABDOMINAL DISTENTION NOTED
[2017-03-24] MEDS: PANTOPRAZOLE 40 MG VIAL IV SCH (18:10)
--- NOTE | 2017-03-24 18:17 | NUR ---
MS RN NOTE FED PUREE DIET ,NOT IN DISTRESS, EAT 75 % OF MEAL
--- NOTE | 2017-03-24 19:26 | NUR ---
RN NOTE RECEIVED PATIENT IN THE BED SITTER RN IS BY BEDSIDE, NO RESPIRATORY DISTRESS, PALE, AWAKE, CONFUSED, ON PUREE DIET, SOFT WRIST BILATERAL RESTRAINTS NOTED, ALL SAFETY MEASURES TAKEN, WILL CONTINUE TO MONITOR PATIENT
[2017-03-24 20:00] VITALS: BP 126/68
[2017-03-24] MEDS: ATORVASTATIN 10 MG TABLET PO SCH (22:11)
[2017-03-24] MEDS: TAMSULOSIN 0.4 MG CAP.SR.24H PO SCH (22:11)
[2017-03-25 04:00] VITALS: BP 115/55
[2017-03-25] MEDS: VALPROATE 250 MG in IV NS 0.9% 100 ML IV SCH (06:08)
[2017-03-25] MEDS: IV D5/0.45 NACL 1,000 ML IV PRN ×2 (06:24→06:54)
[2017-03-25 07:23] LABS: BASOPHILS % (AUTO) 0.3 % (0.0-2.0); EOSINOPHILS # (AUTO) 0.2 /CMM (0.0-0.7); EOSINOPHILS % (AUTO) 4.8 % (0.0-6.0); HEMATOCRIT 21 % (39-51); HEMOGLOBIN 7.2 g/dL (13.5-17.5); LYMPHOCYTES # (AUTO) 0.7 /CMM (0.8-4.8); LYMPHOCYTES % (AUTO) 16.8 % (20.0-44.0); MEAN CORPUSCULAR HEMOGLOBIN 34 PG (26.0-33.0); MEAN CORPUSCULAR HGB CONC 34 g/dl (31.0-36.0); MEAN CORPUSCULAR VOLUME 100 fL (80-96); MONOCYTES # (AUTO) 0.4 /CMM (0.1-1.30); MONOCYTES % (AUTO) 10.3 % (2.0-12.0); NEUTROPHILS # (AUTO) 2.8 /CMM (1.8-8.9); NEUTROPHILS % (AUTO) 67.8 % (43.0-81.0); PLATELET COUNT (AUTO) 242 /CMM (150-450); RDW COEFFICIENT OF VARIATION 19.8 (11.5-15.0); RED BLOOD CELL COUNT(AUTO) 2.14 MIL/uL (4.5-6.0); WHITE BLOOD COUNT (AUTO) 4.2 K/uL (4.3-11.0)
--- NOTE | 2017-03-25 07:26 | NUR ---
RN NOTE NO CHANGES DURING MY SHIFT, SITTER 1:1, NO RESPIRATORY DISTRESS NOTED, NO PAIN OR DISCOMFORT, ALL SAFETY MEASURES TAKEN
[2017-03-25 08:00] VITALS: BP 120/61
[2017-03-25] MEDS: BOOST PLUS FOOD-CHOCLATE 237 ML BOX PO SCH ×2 (08:00→16:33)
[2017-03-25] MEDS: ASCORBIC ACID 500 MG TABLET PO SCH (08:57)
[2017-03-25] MEDS: ASPIRIN 81 MG TAB.CHEW PO SCH (08:57)
[2017-03-25] MEDS: PANTOPRAZOLE 40 MG VIAL IV SCH ×2 (08:57→16:31)
[2017-03-25] MEDS: MULTIVIT, IRON, MIN NO. 8, FA 1 TAB PO SCH (08:58)
[2017-03-25] MEDS: risperiDONE-M 0.5 MG TAB.RAPDIS PO SCH ×3 (08:58→16:31)
[2017-03-25] MEDS: RIFAXIMIN 550 MG TABLET PO SCH ×2 (08:58→16:31)
[2017-03-25] MEDS ORDERED: RISP0.5T8 PO (11:31)
[2017-03-25] MEDS: VALPROIC ACID 250 MG/5 ML UDC PO SCH ×2 (13:56→21:36)
[2017-03-25] MEDS: BENZTROPINE MESYLATE (1 MG) 1 MG TABLET PO SCH ×2 (13:56→16:31)
--- NOTE | 2017-03-25 15:10 | NUR ---
RN NOTES PATIENT'S SACRUM NOTED TO HAVE AN OPENING OF 1.0CM X0.2CMX0.1CM, ACTIVATED WOUND CARE CONSULT. PHOTOS TAKEN. APPLIED Z-GUARD AND MEPILEX. PATIENT IS SCHEDULED FOR DISCHARGE TO [facility]. PAGED CHRISSY WOUND NURSE, AND CALLED [facility] AND LEFT A MESSAGE. WAITING FOR A CALL BACK. CHARGE NURSE AND NURSING WOOL WASHING MACHINE OPERATOR MADE AWARE.
--- NOTE | 2017-03-25 15:48 | NUR ---
RN NOTES CLARIFIED WITH DR. PRASAD IF PATIENT STILL NEEDS ENGLISH CATH, PER , OK TO DC. ENGLISH CATHETER REMOVED. URINE OUTPUT IN THE BAG SHOWS 375ML. WILL MONITOR PATIENT'S URINE OUTPUT.
[2017-03-25 16:00] VITALS: BP 139/88
--- NOTE | 2017-03-25 16:00 | NUR ---
RN NOTES PATIENT IS READY FOR DISCHARGE TO [facility], REPORT GIVEN TO KENTRELL ALMEIDA AT [facility]. PATIENT UNABLE TO COMPREHEND DISCHARGE INSTRUCTIONS, PAPERWORKS SIGNED AND WITNESSED BY ANOTHER RN. PATIENT'S STILL WITH NO URINE OUTPUT. SKIN ASSESSMENT COMPLETED, PHOTOS TAKEN AND PLACED IN CHART. PATIENT HAS NO BELONGINGS.
[2017-03-25] MEDS: CEFTRIAXONE 1 G in IV D5W 50 ML IV SCH (16:25)
--- NOTE | 2017-03-25 19:00 | NUR ---
RN NOTES PATIENT STILL HAS NO URINE OUTPUT AT THIS TIME, BLADDER SCAN SHOWS 211ML DR. PRASAD MADE AWARE, NO NEW ORDER AT THIS TIME. [facility] MADE AWARE. ENDORSED TO TEXTILE MACHINE OPERATOR FOR IZAIAH.
[2017-03-25 20:00] VITALS: BP 120/71
[2017-03-25] MEDS: TAMSULOSIN 0.4 MG CAP.SR.24H PO SCH (21:36)
[2017-03-25] MEDS: ATORVASTATIN 10 MG TABLET PO SCH (21:36)
--- NOTE | 2017-03-25 22:00 | NUR ---
RN NOTE PT HAS NOT URINATED YET. BLADDER SCANNER SHOWS 215ML. WILL CONTINUE TO MONITOR.
--- NOTE | 2017-03-26 | NUR ---
RN NOTE PT URINATED INTO DIAPER WITH A SMALL AMOUNT. PERFORMED A BLADDER SCAN AND PT HAS 600+ OF URINE IN BLADDER. MADE DR DE ANDA AWARE AND NO NEW ORDERS. CONTINUE TO MONITOR.
[2017-03-26] MEDS: IV D5/0.45 NACL 1,000 ML IV PRN (00:01)
[2017-03-26 04:00] VITALS: BP 122/67
[2017-03-26] MEDS: VALPROIC ACID 250 MG/5 ML UDC PO SCH ×3 (05:14→21:41)
--- NOTE | 2017-03-26 05:51 | NUR ---
RN NOTE PT HAS >[address]. NOT[address] DE ANDA AND RECEIVED ORDERS TO STRAIGHT CATH PT TO EMPTY BLADDER.
--- NOTE | 2017-03-26 06:45 | NUR ---
RN NOTE PERFORMED STRAIGHT CATH PER DR DE ANDA ORDERS. 700 ML OUTPUT. WILL ENDORSE TO DANK ALMEIDA.
--- NOTE | 2017-03-26 07:10 | NUR ---
RN NOTE PT REMAINS IN NO ACUTE DISTRESS IN BED. PT DID NOT HAVE ANY SIGNIFICANT CHANGE IN CONDITION DURING SHIFT. ALL NEEDS MET, ALL ORDERS CARRIED OUT. PT DID NOT URINATE AND STRAIGHT CATH PERFORMED PER ORDER BY DR DE ANDA. WILL ENDORSE CARE TO AM RN FOR CONTINUITY OF CARE.
[2017-03-26 08:00] VITALS: BP 121/50
[2017-03-26] MEDS: BOOST PLUS FOOD-CHOCLATE 237 ML BOX PO SCH ×2 (08:33→17:23)
--- NOTE | 2017-03-26 08:43 | NUR ---
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 ALL SKIN PROTECTION AND WOUND RECOMMENDATIONS DISCUSSED WITH NURSING STAFF. PT ON CONNER ISOFLEX LOW AIRLOSS BED. ALL SKIN PROTECTION MEASURES IN PLACE. RECOMMEND SURGICAL FOLLOW UP. WILL SEE PRN. MERCHANT IN AGREEMENT WITH PLAN OF CARE. CURRENT ANNIE SCORE IS 13. Addendum: 03/26/17 at 0845 by CHRISSY BERNAL WNDNU Amended: Links added.
[2017-03-26] MEDS ORDERED: HYDROGEL DRESSING 90 GM TUBE TP PRN (09:00)
[2017-03-26] MEDS: MULTIVIT, IRON, MIN NO. 8, FA 1 TAB PO SCH (09:39)
[2017-03-26] MEDS: ASPIRIN 81 MG TAB.CHEW PO SCH (09:39)
[2017-03-26] MEDS: CLOTRIMAZOLE 1% 15 GM TUBE TP SCH ×2 (09:39→17:23)
[2017-03-26] MEDS: risperiDONE-M 0.5 MG TAB.RAPDIS PO SCH ×3 (09:39→17:22)
[2017-03-26] MEDS: RIFAXIMIN 550 MG TABLET PO SCH ×2 (09:39→17:22)
[2017-03-26] MEDS: ASCORBIC ACID 500 MG TABLET PO SCH (09:39)
[2017-03-26] MEDS: HYDROGEL DRESSING 90 GM TUBE TP SCH (09:39)
[2017-03-26] MEDS: PANTOPRAZOLE 40 MG VIAL IV SCH ×2 (09:39→17:21)
[2017-03-26] MEDS: BENZTROPINE MESYLATE (1 MG) 1 MG TABLET PO SCH ×3 (09:42→17:21)
--- NOTE | 2017-03-26 14:20 | NUR ---
BLADDER SCAN. 500ML IN BLADDER. TOLD PATIENT TO VOID. REFUSED. GAVE PATIENT URINAL ASKED TO VOID. PATIENT REFUSED. STRAIGHT CATHETER OF PATIENT. PATIENT COMPLAINT TO TAKE CATHETER OUT. 200ML RETRIEVED ON STRAIGHT CATHETERIZATION. BLADDER SCAN AGAIN PERFORMED. PATIENT HAD 300ML RESIDUAL. REFUSED TO USE URINAL.
[2017-03-26] MEDS: GABAPENTIN 100 MG CAPSULE PO SCH ×2 (14:28→17:22)
--- NOTE | 2017-03-26 14:50 | NUR ---
SALMA MONROE HELD DISCHARGE R/T URINARY RETENTION.
[2017-03-26 16:00] VITALS: BP 135/68
[2017-03-26] MEDS: CEFTRIAXONE 1 G in IV D5W 50 ML IV SCH (17:36)
--- NOTE | 2017-03-26 19:02 | NUR ---
Upon release of restraint patient attempting unsafely to climb out of bed without assist. Restraint in place afterward.
--- NOTE | 2017-03-26 19:30 | NUR ---
RN NOTES RECEIVED PT AWAKE, ALERT AND ORIENTED X1, WITH CONFUSION NOTED. HOB ELEVATED, ON ROOM AIR AND WITH GOOD SATURATION. PT DENIES SOB, PAIN , NAUSEA AND VOMITING. RIGHT UPPER ARM MIDLINE PATENT AND INTACT WITH ONGOING IVF INFUSING WELL. BILATERAL SOFT WRIST RESTRAINT ON WITH GOOD CIRCULATION NOTED. SAFETY MEASURES AND FALL PRECAUTION OBSERVED, SITTER AT BEDSIDE, CALL LIGHT WITHIN REACH. WILL CONTINUE TO MONITOR PT.
[2017-03-26 20:00] VITALS: BP 130/70
--- NOTE | 2017-03-26 20:15 | NUR ---
RN NOTES UPON ASSESSMENT PT WAS NOTED WITH BLADDER DISTENTION. PT DENIES PAIN AND DISCOMFORT UPON PALPATION. BLADDER SCAN DONE, 573 ML . BRIDGET ISABEL NP WAS PAGED, AWAITING FOR RETURN CALL.
--- NOTE | 2017-03-26 21:00 | NUR ---
RN NOTES BRIDGET ISABEL NP MADE AWARE PT IS RETAINING URINE WITH 573ML ON BLADDER SCAN. NEW ORDER RECEIVED TO INSERT ENGLISH CATHETER, NOTED AND CARRIED OUT. WILL CONTINUE TO MONITOR PT.
[2017-03-26] MEDS: ATORVASTATIN 10 MG TABLET PO SCH (21:41)
[2017-03-26] MEDS: TAMSULOSIN 0.4 MG CAP.SR.24H PO SCH (21:41)
[2017-03-27 04:00] VITALS: BP 120/82
[2017-03-27] MEDS: IV D5/0.45 NACL 1,000 ML IV PRN ×2 (05:03→20:22)
[2017-03-27] MEDS: VALPROIC ACID 250 MG/5 ML UDC PO SCH ×3 (06:10→21:27)
--- NOTE | 2017-03-27 07:25 | NUR ---
RN NOTES PT SLEPT WELL OVERNIGHT. VITAL SIGNS STABLE. DENIES SOB, PAIN, NAUSEA AND VOMITING. ENGLISH CATH INTACT, DRAINING TO GRAVITY. ON BILATERAL WRIST RESTRAINT, STILL NOTED PULLING OUT OF IV TUBINGS AND ENGLISH CATHETER. SITTER AT BEDSIDE . KEPT COMFORTABLE AND ATTENDED. TURNED AND REPOSITION Q2H. SKIN CARE AND WOUND CARE DONE. WILL CONTINUE TO MONITOR PT.
--- NOTE | 2017-03-27 07:26 | NUR ---
MS RN OPENING NOTES RECEIVED PT AWAKE IN BED IN NO ACUTE SIGNS OF DISTRESS. SITTER AT BEDSIDE FOR CLOSE MONITORING. A/O X2, VERBALLY RESPONSIVE WITH NO C/O PAIN OR DISCOMFORTS AT THIS TIME. ON ROOM AIR, BREATHING EVEN & UNLABORED. B/L SOFT RESTRAINTS ON WITH GOOD CIRCULATION NOTED. HIALY MIDLINE G#18 INTACT AND PATENT WITH IVF OF D5 1/2 NS @ 70ML/HR INFUSING WELL. ENGLISH CATH IN PLACE WITH CLEAR YELLOW URINE NOTED AT BEDSIDE URINARY BAG. SAFETY MEASURES IN PLACE W/ SIDE RAILS UP, BED LOCKED & IN LOWEST POSITION. CALL LIGHT WITHIN EASY REACH. WILL CONTINUE TO MONITOR.
[2017-03-27] MEDS: BOOST PLUS FOOD-CHOCLATE 237 ML BOX PO SCH ×2 (08:06→16:32)
[2017-03-27] MEDS: ASCORBIC ACID 500 MG TABLET PO SCH (08:51)
[2017-03-27] MEDS: PANTOPRAZOLE 40 MG VIAL IV SCH ×2 (08:51→16:30)
[2017-03-27] MEDS: ASPIRIN 81 MG TAB.CHEW PO SCH (08:51)
[2017-03-27] MEDS: BENZTROPINE MESYLATE (1 MG) 1 MG TABLET PO SCH ×3 (08:51→16:31)
[2017-03-27] MEDS: MULTIVIT, IRON, MIN NO. 8, FA 1 TAB PO SCH (08:53)
[2017-03-27] MEDS: CLOTRIMAZOLE 1% 15 GM TUBE TP SCH ×2 (08:54→16:31)
[2017-03-27] MEDS: RIFAXIMIN 550 MG TABLET PO SCH ×2 (08:54→16:31)
[2017-03-27] MEDS: HYDROGEL DRESSING 90 GM TUBE TP SCH (08:55)
[2017-03-27] MEDS: risperiDONE-M 0.5 MG TAB.RAPDIS PO SCH ×3 (09:27→16:31)
[2017-03-27] MEDS: QUETIAPINE FUMARATE 25 MG TABLET PO SCH ×2 (09:27→16:31)
[2017-03-27 16:00] VITALS: BP 121/63
[2017-03-27] MEDS: CEFTRIAXONE 1 G in IV D5W 50 ML IV SCH (16:24)
--- NOTE | 2017-03-27 18:52 | NUR ---
MS RN CLOSING NOTES PT AWAKE AND RESTING AT MODERATE HIGH BACKREST IN BED WITH SITTER AT BEDSIDE FOR CLOSE MONITORING. A/O X2, SAME VERBALLY RESPONSIVE. QUIET MOST OF THE TIME DURING THE DAY. B/L SOFT RESTRAINTS RELEASED AT THIS TIME. ON ROOM AIR, BREATHING EVEN & UNLABORED. WITH GOOD CIRCULATION NOTED. HAILY MIDLINE G#18 INTACT AND PATENT WITH IVF OF D5 1/2 NS @ 70ML/HR INFUSING WELL. ENGLISH CATH IN PLACE WITH CLEAR YELLOW URINE NOTED AT BEDSIDE URINARY BAG. SAFETY MEASURES IN PLACE W/ SIDE RAILS UP, BED LOCKED & IN LOWEST POSITION. CALL LIGHT WITHIN EASY REACH. ALL NEEDS AND CARE PROVIDED WELL. WILL ENDOSRED TO [place] SUPERVISOR NURSE FOR IZAIAH..
--- NOTE | 2017-03-27 19:30 | NUR ---
MS RN OPENING NOTES: PATIENT IN BED, AOX1, ON ROOM AIR, BREATHING EVEN AND UNLABORED. APPEARS CALM AND IN NO DISTRESS. NO RESTRAINTS APPLIED AT THIS TIME. HAILY MIDLINE INTACT AND INFUSING WELL WITH D5 1/2 NS RUNNING AT 70 ML/HR. ENGLISH CATHETER IN PLACE, DRAINING CLEAR YELLOW URINE. PROVIDED FOR COMFORT AND SAFETY. BED IN LOWEST AND LOCKED POSITION, SIDERAILS UP X 3. SITTER AT BEDSIDE. WILL CONT TO MONITOR.
--- NOTE | 2017-03-27 19:40 | NUR ---
RN NOTES: DR RICO AT BEDSIDE. ORDERED FOR CBC IN AM AND STOOL OB. NOTED AND CARRIED OUT.
[2017-03-27] MEDS: TAMSULOSIN 0.4 MG CAP.SR.24H PO SCH (21:27)
[2017-03-27] MEDS: ATORVASTATIN 10 MG TABLET PO SCH (21:27)
[2017-03-28 04:00] VITALS: BP 122/67
--- NOTE | 2017-03-28 04:00 | NUR ---
RN NOTES: NOTED SWELLING OVER HAILY, AROUND THE AREA OF THE MIDLINE. MIDLINE STILL HAS BLOOD BACKFLOW. ELEVATED HAILY. DAGOBERTO, CHARGE NURSE MADE AWARE, AND INSERTED NEW PIV OVER LEFT HAND G 20. ELEVATED HAILY. TEMP CHECKED PER AXILLA AT 94.6. RECTAL TEMP CHECKED AT 94.7. CN MADE AWARE. MADE ROOM WARMER AND COVERED PATIENT IN WARM BLANKETS. CALLED NURSING ACCESS MANAGER, LOTTIE GELLER.
[2017-03-28] MEDS: VALPROIC ACID 250 MG/5 ML UDC PO SCH ×3 (05:27→22:14)
--- NOTE | 2017-03-28 05:36 | NUR ---
RN NOTES: TEMP CHECKED ORALLY AT 97.3.
--- NOTE | 2017-03-28 06:43 | NUR ---
MS RN CLOSING NOTES: PATIENT IN BED, AOX1, ON ROOM AIR, BREATHING EVEN AND UNLABORED. APPEARS CALM AND IN NO DISTRESS. ENGLISH CATHETER IN PLACE DRAINING DARK YELLOW URINE. HAILY MIDLINE STILL SWOLLEN, ELEVATED ON PILLOWS. PIV OVER R HAND G 20 INTACT AND INFUSING WELL WITH D5 1/2 NS RUNNING AT 70 ML/HR. DUE MEDS GIVEN, PROVIDED FOR COMFORT AND SAFETY. BED IN LOWEST AND LOCKED POSITION, SIDERAILS UP X 3, NO RESTRAINTS APPLIED THROUGH SHIFT. SITTER AT BEDSIDE. WILL ENDORSE TO AM RN FOR IZAIAH.
[2017-03-28 07:02] LABS: BASOPHILS % (AUTO) 0.4 % (0.0-2.0); EOSINOPHILS # (AUTO) 0.3 /CMM (0.0-0.7); EOSINOPHILS % (AUTO) 3.9 % (0.0-6.0); HEMATOCRIT 21 % (39-51); HEMOGLOBIN 7.1 g/dL (13.5-17.5); LYMPHOCYTES # (AUTO) 0.8 /CMM (0.8-4.8); LYMPHOCYTES % (AUTO) 11.7 % (20.0-44.0); MEAN CORPUSCULAR HEMOGLOBIN 33 PG (26.0-33.0); MEAN CORPUSCULAR HGB CONC 33 g/dl (31.0-36.0); MEAN CORPUSCULAR VOLUME 100 fL (80-96); MONOCYTES # (AUTO) 0.4 /CMM (0.1-1.30); MONOCYTES % (AUTO) 5.5 % (2.0-12.0); NEUTROPHILS # (AUTO) 5.1 /CMM (1.8-8.9); NEUTROPHILS % (AUTO) 78.5 % (43.0-81.0); PLATELET COUNT (AUTO) 264 /CMM (150-450); RDW COEFFICIENT OF VARIATION 20.3 (11.5-15.0); RED BLOOD CELL COUNT(AUTO) 2.12 MIL/uL (4.5-6.0); WHITE BLOOD COUNT (AUTO) 6.5 K/uL (4.3-11.0)
[2017-03-28 08:00] VITALS: BP 111/62
[2017-03-28] MEDS: HYDROGEL DRESSING 90 GM TUBE TP SCH (09:00)
[2017-03-28] MEDS: CLOTRIMAZOLE 1% 15 GM TUBE TP SCH ×2 (09:00→17:00)
[2017-03-28] MEDS: ASCORBIC ACID 500 MG TABLET PO SCH (10:03)
[2017-03-28] MEDS: QUETIAPINE FUMARATE 25 MG TABLET PO SCH ×2 (10:03→17:00)
[2017-03-28] MEDS: MULTIVIT, IRON, MIN NO. 8, FA 1 TAB PO SCH (10:03)
[2017-03-28] MEDS: RIFAXIMIN 550 MG TABLET PO SCH ×2 (10:03→17:00)
[2017-03-28] MEDS: BENZTROPINE MESYLATE (1 MG) 1 MG TABLET PO SCH ×3 (10:04→17:00)
[2017-03-28] MEDS: ASPIRIN 81 MG TAB.CHEW PO SCH (10:04)
[2017-03-28] MEDS: risperiDONE-M 0.5 MG TAB.RAPDIS PO SCH ×3 (10:04→17:00)
[2017-03-28] MEDS: PANTOPRAZOLE 40 MG VIAL IV SCH ×2 (10:10→19:24)
[2017-03-28] MEDS: BOOST PLUS FOOD-CHOCLATE 237 ML BOX PO SCH ×2 (10:12→17:00)
[2017-03-28] MEDS: IV D5/0.45 NACL 1,000 ML IV PRN (13:18)
[2017-03-28 16:00] VITALS: BP 111/79
--- NOTE | 2017-03-28 19:42 | NUR ---
MS RN INITIAL NOTES: PATIENT IN BED, AOX1, ON ROOM AIR, BREATHING EVEN AND UNLABORED. APPEARS CALM AND IN NO DISTRESS. ENGLISH CATHETER IN PLACE DRAINING DARK YELLOW URINE. HAILY MIDLINE STILL SWOLLEN, ELEVATED ON PILLOWS. PIV OVER R HAND G 20 INTACT AND INFUSING WELL WITH D5 1/2 NS RUNNING AT 70 ML/HR. DUE MEDS GIVEN, PROVIDED FOR COMFORT AND SAFETY. BED IN LOWEST AND LOCKED POSITION, SIDERAILS UP X 3, NO RESTRAINTS APPLIED THROUGH SHIFT. SITTER AT BEDSIDE. WITH POSSIBLE DC TO [facility].
[2017-03-28 20:00] VITALS: BP 130/68
--- NOTE | 2017-03-28 20:55 | NUR ---
RN NOTES RECEIVED PT FROM NATALIA A/OX1-2, ON 14 DAYS HOLD SITTER AT BESIDE, PT STILL ON BILATERAL SOFT WRIST RESTRAINTS, ASKED NATALIA CHARGE NURSE WHY THE PT HAS RESTRAINT WHEN HE HAS A SITTER, NATALIA CHARGE NURSE INFORMED ME THAT PT IS PULLING EVERYTHING , AND VERY AGGRESSIVE AND MD IS AWARE, F/C DRAINING CLEAR YELLOW URINE,.SIDERAILSUPX2 , WILL CONTINUE TO MONITOR
[2017-03-28 21:00] VITALS: BP 130/68
[2017-03-28] MEDS: ATORVASTATIN 10 MG TABLET PO SCH (22:14)
[2017-03-28] MEDS: TAMSULOSIN 0.4 MG CAP.SR.24H PO SCH (22:14)
--- NOTE | 2017-03-29 07:00 | NUR ---
RN NOTES AWAKE, BEDBATH RENDERED, MIDLINE IN PLACE, F/C DRAINING CLEAR YELLOW URINE, PT. NEEDS ATTENDED
--- NOTE | 2017-03-29 07:20 | NUR ---
RN OPENING NOTES RECEIVED PT. PT STABLE AND RESTING IN BED. A/OX2, SITTER AT BEDSIDE. NO S/S OF RESP DISTRESS OR SOB. PT DOES NOT APPEAR TO BE IN PAIN. PT APPEARS CALM AND MOOD IS APPROPRIATE. IV ACCESS LOCATED ON RIGHT FA, CURRENTLY SL. SAFETY MEASURES IN PLACE. CALL LIGHT IN REACH. WILL CONTINUE TO MONITOR.
[2017-03-29] MEDS: VALPROIC ACID 250 MG/5 ML UDC PO SCH ×3 (07:27→21:19)
[2017-03-29] MEDS: IV D5/0.45 NACL 1,000 ML IV PRN ×2 (07:27→22:14)
[2017-03-29] MEDS: BOOST PLUS FOOD-CHOCLATE 237 ML BOX PO SCH ×2 (08:00→16:39)
[2017-03-29 08:51] VITALS: BP 116/69
[2017-03-29] MEDS: ASPIRIN 81 MG TAB.CHEW PO SCH (09:44)
[2017-03-29] MEDS: ASCORBIC ACID 500 MG TABLET PO SCH (09:44)
[2017-03-29] MEDS: MULTIVIT, IRON, MIN NO. 8, FA 1 TAB PO SCH (09:44)
[2017-03-29] MEDS: risperiDONE-M 0.5 MG TAB.RAPDIS PO SCH ×3 (09:44→16:39)
[2017-03-29] MEDS: RIFAXIMIN 550 MG TABLET PO SCH ×2 (09:45→16:39)
[2017-03-29] MEDS: PANTOPRAZOLE 40 MG VIAL IV SCH ×3 (09:45→19:30)
[2017-03-29] MEDS: BENZTROPINE MESYLATE (1 MG) 1 MG TABLET PO SCH ×3 (09:45→16:39)
[2017-03-29] MEDS: QUETIAPINE FUMARATE 25 MG TABLET PO SCH ×2 (09:45→16:39)
[2017-03-29] MEDS: CLOTRIMAZOLE 1% 15 GM TUBE TP SCH ×2 (09:46→16:40)
[2017-03-29] MEDS: HYDROGEL DRESSING 90 GM TUBE TP SCH (09:46)
[2017-03-29 16:19] VITALS: BP 115/66
--- NOTE | 2017-03-29 19:30 | NUR ---
MS RN NOTES ON BED,TRYING TO COVER HIMSELF WITH BLANKET.A/O X1,5250 HOLD D/C'D BY DR EVANS.WITH SITTER AT BEDSIDE,ENGLISH CATH IN PLACE DRAINING YELLOWISH OUTPUT.WILL D/C IN THE MORNING.WITH HAILY MIDLINE INFUSING D5 1/2 NS AT 70ML/HR RATE.WILL CONTINUE TO MONITOR STATUS.
--- NOTE | 2017-03-29 19:32 | NUR ---
RN CLOSING NOTES PT IN BED RESTING. NO S/S OF RESP DISTRESS OR SOB. PT DOES NOT APPEAR TO BE IN PAIN AT THIS TIME. PT AFFECT IS APPROPRIATE, COMPLIANT WITH ALL PROCEDURES AND MEDS. ALL PT NEEDS ANTICIPATED AND MET. SAFETY MEASURES IN PLACE, CALL LIGHT WITHIN REACH. WILL ENDORSE TO ROLLING CHAIR PUSHER FOR [facility].
[2017-03-29 20:00] VITALS: BP 120/56
--- NOTE | 2017-03-29 20:19 | NUR ---
MS RN NOTES DUE PROTONIX 40MG IV HELD.ALREADY HAD TWICE TODAY 40MG IV PROTONIX
[2017-03-29 20:47] VITALS: BP 120/56
[2017-03-29] MEDS: TAMSULOSIN 0.4 MG CAP.SR.24H PO SCH (21:20)
[2017-03-29] MEDS: ATORVASTATIN 10 MG TABLET PO SCH (21:21)
[2017-03-30] MEDS: VALPROIC ACID 250 MG/5 ML UDC PO SCH ×3 (04:57→21:02)
--- NOTE | 2017-03-30 07:00 | NUR ---
MS RN NOTES FAIRLY RESTED.ENGLISH CATH DISCONTINUE ORDERED.OUTPUT 1200ML.POSSIBLE D/C TO GPS WHEN STABLE.WILL ENDORSE TO DAY NURSE FOR [facility].
--- NOTE | 2017-03-30 07:31 | NUR ---
RN OPENING NOTES RECEIVED PT. PT IS STABLE AND RESTING IN BED. A/OX1. PREVIOUS SITTER D/C PT IS NO LONGER COMBATIVE OR PULLING LINES. FC IN PLACE AND PATENT. PER MD NOTE, PT DC TO GPS ONCE MEDICALLY STABLE (ROOM 217). IV ACCESS LOCATED ON RIGHT UPPER ARM, MIDLINE INFUSING D5 1/2 NS AT 70 ML/HR. SAFETY MEASURES IN PLACE, CALL LIGHT WITHIN REACH. WILL CONTINUE TO MONITOR.
[2017-03-30 07:51] LABS: EOSINOPHILS # (AUTO) 0.2 /CMM (0.0-0.7); EOSINOPHILS % (AUTO) 2.4 % (0.0-6.0); HEMATOCRIT 23 % (39-51); HEMOGLOBIN 7.4 g/dL (13.5-17.5); LYMPHOCYTES # (AUTO) 0.8 /CMM (0.8-4.8); LYMPHOCYTES % (AUTO) 10.6 % (20.0-44.0); MEAN CORPUSCULAR HEMOGLOBIN 33 PG (26.0-33.0); MEAN CORPUSCULAR HGB CONC 33 g/dl (31.0-36.0); MEAN CORPUSCULAR VOLUME 100 fL (80-96); MONOCYTES # (AUTO) 0.4 /CMM (0.1-1.30); MONOCYTES % (AUTO) 5.2 % (2.0-12.0); NEUTROPHILS # (AUTO) 6.4 /CMM (1.8-8.9); NEUTROPHILS % (AUTO) 81.8 % (43.0-81.0); PLATELET COUNT (AUTO) 280 /CMM (150-450); RDW COEFFICIENT OF VARIATION 19.4 (11.5-15.0); RED BLOOD CELL COUNT(AUTO) 2.25 MIL/uL (4.5-6.0); WHITE BLOOD COUNT (AUTO) 7.8 K/uL (4.3-11.0)
[2017-03-30 08:00] VITALS: BP 110/63
[2017-03-30] MEDS: RIFAXIMIN 550 MG TABLET PO SCH ×2 (08:52→16:57)
[2017-03-30] MEDS: BENZTROPINE MESYLATE (1 MG) 1 MG TABLET PO SCH ×3 (08:52→16:57)
[2017-03-30] MEDS: ASCORBIC ACID 500 MG TABLET PO SCH (08:52)
[2017-03-30] MEDS: BOOST PLUS FOOD-CHOCLATE 237 ML BOX PO SCH ×2 (08:52→16:58)
[2017-03-30] MEDS: MULTIVIT, IRON, MIN NO. 8, FA 1 TAB PO SCH (08:52)
[2017-03-30] MEDS: ASPIRIN 81 MG TAB.CHEW PO SCH (08:52)
[2017-03-30] MEDS: risperiDONE-M 0.5 MG TAB.RAPDIS PO SCH ×3 (08:53→16:57)
[2017-03-30] MEDS: QUETIAPINE FUMARATE 25 MG TABLET PO SCH ×2 (08:53→16:57)
[2017-03-30] MEDS: CLOTRIMAZOLE 1% 15 GM TUBE TP SCH ×2 (08:54→16:57)
[2017-03-30] MEDS: HYDROGEL DRESSING 90 GM TUBE TP SCH (08:54)
[2017-03-30] MEDS: LORAZEPAM INJ 2 MG/ML VIAL IV PRN ×2 (12:41→21:03)
[2017-03-30 16:00] VITALS: BP 120/72
--- NOTE | 2017-03-30 19:03 | NUR ---
RN CLOSING NOTES PT IN BED RESTING NO S/S OF RESP DISTRESS OR SOB. PT RETAINED URINE, APPROX 980 ML PER BLADDER SCAN. STRAIGHT CATH PERFORMED, OUTPUT OF 1200 ML. ORDER FOR RESTRAINTS RECEIVED PT WAS DISTRAUGHT, ATTEMPTING TO PULL LINES AND GET OUT OF BED. MD AWARE OF ALL ISSUES. SAFETY MEASURES IN PLACE, CALL LIGHT WITHIN REACH. WILL ENDORSE TO [facility] TENDER FOR [facility].
[2017-03-30 20:00] VITALS: BP 140/78
[2017-03-30] MEDS: TAMSULOSIN 0.4 MG CAP.SR.24H PO SCH (21:02)
[2017-03-30] MEDS: ATORVASTATIN 10 MG TABLET PO SCH (21:02)
[2017-03-30] MEDS: PANTOPRAZOLE 40 MG VIAL IV SCH (21:03)
--- NOTE | 2017-03-31 01:11 | NUR ---
RN OPENING NOTES RECEIVED PT. PT IS STABLE AND RESTING IN BED. A/OX1. SOFT WRIST RESTRAINTS TO BILATERAL WRISTS. TO PER MD NOTE, PT DC TO GPS ONCE MEDICALLY STABLE (ROOM 217). IV ACCESS LOCATED ON RIGHT UPPER ARM, MIDLINE INFUSING D5 1/2 NS AT 70 ML/HR. SAFETY MEASURES IN PLACE, CALL LIGHT WITHIN REACH. WILL CONTINUE TO MONITOR.
--- NOTE | 2017-03-31 06:15 | NUR ---
MS RN NOTE DIAPER WITH SMALL AMOUNT OF URINE. PERFORMED BLADDER SCAN. SHOWED >999ML. PERFORMED STRAIGHT CATH. 1200 ML OF CLEAR YELLOW URINE REMOVED. BRIDGET ISABEL NOTIFIED. NEW ORDER FOR BLADDER SCAN Q4HRS. PATIENT STABLE. CONTINUES ON BILATERAL SOFT WRIST RESTRAINTS. KEPT CLEAN DRY AND COMFORTABLE. WILL ENDORSE TO DAY SHIFT FOR IZAIAH.
[2017-03-31] MEDS: VALPROIC ACID 250 MG/5 ML UDC PO SCH ×3 (06:22→21:18)
--- NOTE | 2017-03-31 07:10 | NUR ---
RN OPENING NOTES. PT RECEIVED RESTING IN BED, PT EYES OPEN BUT NON VERBAL. PT WITH BI LAT SWR, NEURO INTACT. PT BREATHING REGULAR AND EVEN AND WITHOUT S/S OF RESP DISTRESS. PT WITH R UA MIDLINE INTACT AND OPERATIONAL. PT PROVIDED CALM REASSURANCE, T.V STARTED QUIETLY. PT WITHOUT S/S OF DISTRESS OR DISCOMFORT. PT BED IN LOWEST LOCKED POSITION WITH HANDRAILSX4 AND CALL TRUJILLO WITHIN REACH.
[2017-03-31] MEDS: RIFAXIMIN 550 MG TABLET PO SCH ×2 (08:36→17:52)
[2017-03-31] MEDS: QUETIAPINE FUMARATE 25 MG TABLET PO SCH ×2 (08:36→17:52)
[2017-03-31] MEDS: MULTIVIT, IRON, MIN NO. 8, FA 1 TAB PO SCH (08:37)
[2017-03-31] MEDS: ASCORBIC ACID 500 MG TABLET PO SCH (08:37)
[2017-03-31] MEDS: BENZTROPINE MESYLATE (1 MG) 1 MG TABLET PO SCH ×3 (08:37→17:52)
[2017-03-31] MEDS: ASPIRIN 81 MG TAB.CHEW PO SCH (08:37)
[2017-03-31] MEDS: risperiDONE-M 0.5 MG TAB.RAPDIS PO SCH ×3 (08:37→17:52)
[2017-03-31] MEDS: BOOST PLUS FOOD-CHOCLATE 237 ML BOX PO SCH ×2 (08:37→17:53)
[2017-03-31] MEDS: CLOTRIMAZOLE 1% 15 GM TUBE TP SCH ×2 (08:38→17:52)
[2017-03-31] MEDS: HYDROGEL DRESSING 90 GM TUBE TP SCH (08:38)
[2017-03-31 08:53] VITALS: BP 137/78
--- NOTE | 2017-03-31 10:30 | NUR ---
RN NOTES. BLADDER SCANNED WITH 756CC,REPORTED TO MD MABEL MD REQUESTING STRAIGHT CATH. 520CC REMOVED.
--- NOTE | 2017-03-31 15:00 | NUR ---
RN NOTES. BLADDER SCANNED WITH 656CC, REPORTED TO MD MABEL REQUESTING ENGLISH INSERTION.
--- NOTE | 2017-03-31 15:30 | NUR ---
RN NOTES. ENGLISH PLACED PER , 400CC COLLECTED.
[2017-03-31 15:38] VITALS: BP 133/84
--- NOTE | 2017-03-31 19:01 | NUR ---
RN CLOSING NOTES. PT REMAINS A&0X1, PREDOMINANTLY NON VERBAL. PT TOLERATING ROOM AND IS WITHOUT S/S OF PAIN, DISTRESS OR DISCOMFORT. PT WITH R UA MIDLINE INTACT AND OPERATIONAL. PT WITH BI-LAT SOFT WRIST RESTRAINTS FOR SAFETY, NEURO INTACT AND REPOSITIONED PER PROTOCOL. PT NOW WITH ENGLISH, INTACT AND OPERATIONAL. WOUND CARE PER ORDER. BED IN LOWEST LOCKED POSITION WITH HANDRAILSX4 AND CALL ELL WITHIN REACH. ALL DAY NURSE DUTIES ATTENDED TO. PT WITHOUT CONCERN OR COMPLAINT.
--- NOTE | 2017-03-31 19:40 | NUR ---
MS RN OPENING NOTES PT RECEIVED RESTING IN BED, PT EYES OPEN, A & O X 1 & BLIND. PT WITH BILAT SWR, NEURO INTACT. PT BREATHING REGULAR AND EVEN AND WITHOUT S/S OF RESP DISTRESS. PT WITH HAILY MIDLINE INTACT AND PATENT, RUNNING WITH IVF ORDERED. HAS ENGLISH CATH IN PLACE, DRAINING WITH LIGHT YELLOW COLOR URINE. PT PROVIDED CALM REASSURANCE.BED IN LOWEST LOCKED POSITION WITH HANDRAILS X 3 AND CALL TRUJILLO WITHIN REACH. WILL CONTINUE TO MONITOR CLOSELY FOE SAFETY & COMFORT.
[2017-03-31 20:00] VITALS: BP 122/71
[2017-03-31] MEDS: ATORVASTATIN 10 MG TABLET PO SCH (21:16)
[2017-03-31] MEDS: PANTOPRAZOLE 40 MG VIAL IV SCH (21:16)
[2017-03-31] MEDS: TAMSULOSIN 0.4 MG CAP.SR.24H PO SCH (21:16)
--- NOTE | 2017-04-01 01:15 | NUR ---
MS RN NOTES PATIENT NOTED TO BE SLEEPING COMFORTABLY IN BED. CALM/RELAXED, NO AGGRESSIVE BEHAVIOR NOTED. MONITORING CLOSELY.
[2017-04-01] MEDS: IV D5/0.45 NACL 1,000 ML IV PRN (01:41)
[2017-04-01] MEDS: VALPROIC ACID 250 MG/5 ML UDC PO SCH ×2 (05:30→13:32)
[2017-04-01 06:55] LABS: BASOPHILS % (AUTO) 0.2 % (0.0-2.0); EOSINOPHILS # (AUTO) 0.1 /CMM (0.0-0.7); EOSINOPHILS % (AUTO) 1.7 % (0.0-6.0); HEMATOCRIT 22 % (39-51); HEMOGLOBIN 7.2 g/dL (13.5-17.5); LYMPHOCYTES # (AUTO) 0.8 /CMM (0.8-4.8); LYMPHOCYTES % (AUTO) 14.8 % (20.0-44.0); MEAN CORPUSCULAR HEMOGLOBIN 33 PG (26.0-33.0); MEAN CORPUSCULAR HGB CONC 33 g/dl (31.0-36.0); MEAN CORPUSCULAR VOLUME 100 fL (80-96); MONOCYTES # (AUTO) 0.3 /CMM (0.1-1.30); MONOCYTES % (AUTO) 5.3 % (2.0-12.0); NEUTROPHILS # (AUTO) 4.2 /CMM (1.8-8.9); PLATELET COUNT (AUTO) 250 /CMM (150-450); RDW COEFFICIENT OF VARIATION 20.8 (11.5-15.0); RED BLOOD CELL COUNT(AUTO) 2.16 MIL/uL (4.5-6.0); WHITE BLOOD COUNT (AUTO) 5.4 K/uL (4.3-11.0)
--- NOTE | 2017-04-01 07:00 | NUR ---
MS RN CLOSING NOTES PT RESTING IN BED, PT EYES CLOSED, A & O X 1 & BLIND. PT WITH BILATERAL SWR, NEURO INTACT. PT BREATHING REGULAR AND EVEN AND WITHOUT S/S OF RESP DISTRESS. PT WITH HAILY MIDLINE INTACT AND PATENT, RUNNING WITH IVF ORDERED. HAS ENGLISH CATH IN PLACE, DRAINING WITH LIGHT YELLOW COLOR URINE. PT REMAINED CALM/RELAXED @ NIGHT. BED IN LOWEST LOCKED POSITION WITH HANDRAILS X 2 & CALL TRUJILLO WITHIN REACH. WILL ENDORSE TO AM RN FOR CONTINUITY OF CARE.
[2017-04-01 07:30] LABS: ALANINE AMINOTRANSFERASE 44 U/L (12-78); ALBUMIN 1.6 g/dL (3.4-5.0); ALKALINE PHOSPHATASE 107 U/L (46-116); ASPARTATE AMINOTRANSFERASE 48 U/L (15-37); BILIRUBIN,TOTAL 0.2 mg/dL (0.2-1.0); CALCIUM, SERUM 8.9 mg/dL (8.5-10.1); CARBON DIOXIDE 26 mmol/L (21-32); CHLORIDE 112 mmol/L (98-107); CREATININE 1.1 mg/dL (0.6-1.3); GLUCOSE 106 mg/dL (74-106); MAGNESIUM 1.8 mg/dL (1.8-2.4); PHOSPHORUS 4.3 mg/dL (2.5-4.9); POTASSIUM 4.3 mmol/L (3.5-5.1); SODIUM SERUM 144 mmol/L (136-145); TOTAL PROTEIN, SERUM 5.1 g/dL (6.4-8.2); UREA NITROGEN, BLOOD 15 mg/dL (7-18)
--- NOTE | 2017-04-01 07:30 | NUR ---
rn opening. pt received a&0x1, eyes open and predominantly non verbal, pt tolerating room air without s/s of resp distress and sao2 wnl. pt without s/s of pain. pt with loose bi.lat swr for pt safety, neuro intact with repositioning as per protocol. pt with r ua midline intact and operational. pt with blackburn intact and operational with lite yellow urine in collection. pt bed in lowest locked position, handrails x4. will continue to monitor.
[2017-04-01 08:00] VITALS: BP 129/67
[2017-04-01] MEDS: ASCORBIC ACID 500 MG TABLET PO SCH (08:28)
[2017-04-01] MEDS: QUETIAPINE FUMARATE 25 MG TABLET PO SCH ×2 (08:28→17:04)
[2017-04-01] MEDS: risperiDONE-M 0.5 MG TAB.RAPDIS PO SCH ×3 (08:28→17:04)
[2017-04-01] MEDS: MULTIVIT, IRON, MIN NO. 8, FA 1 TAB PO SCH (08:28)
[2017-04-01] MEDS: ASPIRIN 81 MG TAB.CHEW PO SCH (08:28)
[2017-04-01] MEDS: CLOTRIMAZOLE 1% 15 GM TUBE TP SCH ×2 (08:29→17:04)
[2017-04-01] MEDS: RIFAXIMIN 550 MG TABLET PO SCH ×2 (08:29→17:04)
[2017-04-01] MEDS: BENZTROPINE MESYLATE (1 MG) 1 MG TABLET PO SCH ×3 (08:29→17:04)
[2017-04-01] MEDS: HYDROGEL DRESSING 90 GM TUBE TP SCH (08:29)
[2017-04-01] MEDS: BOOST PLUS FOOD-CHOCLATE 237 ML BOX PO SCH ×2 (08:30→17:04)
--- NOTE | 2017-04-01 15:28 | NUR ---
RN NOTES. D/C REPORT CALLED TO [facility].
--- NOTE | 2017-04-01 18:30 | NUR ---
RN D/C NOTES. PT PREPARED FOR D/C PER MD. PT TOLERATING ROOM AIR AND DENIES PAIN AND IS WITHOUT S/S OF DISTRESS OR DISCOMFORT. PT R UA MIDLINE REMOVED AND PRESSURE BANDAGE APPLIED, NAD AT SITE. PT LEAVING WITH ENGLISH PER MD R/T FAILED VOID TRIAL, ENDORSED TO [facility] TO DO RETRY VOID TRAIL PER MD MONROE. PT WITHOUT BELONGINGS AND DOCUMENT SIGNED BY RNX2. PT D/C PACKET PROVIDED TO EMT. ALL DAY NURSE DUTIES ATTENDED TO. PT LEFT WITH EMT TRANSPORT TO [facility].
== END 2017-04-01 18:45 | DRG 280 ==
LOC: ER 14:14 → TELE1 17:22 → MEDSG1 03-16 10:00 → MEDSG2 03-28 20:30
PROVIDERS: ADMIT Internal Medicine; ATTEND Internal Medicine
DX: I21.A1 Myocardial infarction type 2 (principal); N17.0 Acute kidney failure with tubular necrosis; G92 Toxic encephalopathy; D61.818 Other pancytopenia; E44.0 Moderate protein-calorie malnutrition; J90 Pleural effusion, not elsewhere classified; E87.0 Hyperosmolality and hypernatremia; N18.3 Chronic kidney disease, stage 3 (moderate); N39.0 Urinary tract infection, site not specified; F03.91 Unspecified dementia, unspecified severity, with behavioral disturbance; D68.9 Coagulation defect, unspecified; K56.7 Ileus, unspecified; J98.11 Atelectasis; D69.59 Other secondary thrombocytopenia; E83.42 Hypomagnesemia; D53.9 Nutritional anemia, unspecified; E86.0 Dehydration; B96.20 Unspecified Escherichia coli [E. coli] as the cause of diseases classified elsewhere; D63.8 Anemia in other chronic diseases classified elsewhere; I12.9 Hypertensive chronic kidney disease with stage 1 through stage 4 chronic kidney disease, or unspecified chronic kidney disease; K21.9 Gastro-esophageal reflux disease without esophagitis; Z79.899 Other long term (current) drug therapy; F03.90 Unspecified dementia, unspecified severity, without behavioral disturbance, psychotic disturbance, mood disturbance, and anxiety; N40.0 Benign prostatic hyperplasia without lower urinary tract symptoms; D72.829 Elevated white blood cell count, unspecified; F25.9 Schizoaffective disorder, unspecified; F41.9 Anxiety disorder, unspecified; Z66 Do not resuscitate; Z98.1 Arthrodesis status; K58.9 Irritable bowel syndrome, unspecified; E78.5 Hyperlipidemia, unspecified; I25.2 Old myocardial infarction; S31.000A Unspecified open wound of lower back and pelvis without penetration into retroperitoneum, initial encounter; X58.XXXA Exposure to other specified factors, initial encounter; Y92.129 Unspecified place in nursing home as the place of occurrence of the external cause; F29 Unspecified psychosis not due to a substance or known physiological condition; R62.7 Adult failure to thrive; N28.1 Cyst of kidney, acquired; K74.60 Unspecified cirrhosis of liver; R33.9 Retention of urine, unspecified
CPT/HCPCS: 36415; 36569; 71045-TC; 76770-TC; 80048-TC; 80053-TC; 80076-TC; 80164-TC; 81000-TC; 82140-TC; 82272-TC; 82550-TC; 82570-TC; 82728-TC; 82746; 82962-TC; 83540-TC; 83735-TC; 83935-TC; 83970; 84100-TC; 84155; 84155-TC; 84165; 84295-TC; 84300-TC; 84443-TC; 84484-TC; 84550-TC; 85025-TC; 85396; 85730-TC; 87040-TC; 87081-TC; 87086-TC; 87186-TC; 93307-TC; 94799-TC; A4217; A4606; A6248; A6402; C9113; J0696; J2060; J2405; J3475; J3490; J7030; J7060; J7070; Q0162; Q9963; Z7610

== ENCOUNTER 2017-04-08 00:06 | Inpatient (IN) | payer MEDICARE, MEDICAID ==
[2017-04-08] VITALS (71 sets, daily range): BP systolic 68–140; BP diastolic 36–79
[~2017-04-08] VITALS: Ht 188 cm; Wt 68.5 kg
[~2017-04-08 00:06] MED LIST changes: +ACET325T53 PO; +ASCO500T9 PO; +ATOR20TA PO; +DIVA125C PO; +MAG355OR18 PO; +MAGN400O6 PO; +MULT-447 PO; +NA P133E RC; +QUET50TA PO; +RISP0.5T8 PO; +TAMS-12 PO; +ZINC220C6 PO
--- NOTE | 2017-04-08 00:06 | NUR ---
EKG DONE AT BEDSIDE
--- NOTE | 2017-04-08 00:06 | NUR ---
[id number] FROM [facility] FOR SOB WITH AUDIBLE CONGESTION; PATIENT ARRIVED WITH NONREBREATHER ON. PT IS CONFUSED TRYING TO RIP OFF MEDICAL EQUIPMENT SUCH NONREABREATHER. A/OX1 VSS NAD. WILL CONTINUE TO MONITOR FOR ANY CHANGES DURING THE SHIFT.
--- NOTE | 2017-04-08 00:08 | NUR ---
PT PLACED ON BIPAP BY RT. BIPAP SETTINGS: RATE 18 I PAP 15 EPAP 5 FIO2 60%.
--- NOTE | 2017-04-08 00:10 | NUR ---
PT HAS ENGLISH CATH SWEDISH MASSEUSE
--- NOTE | 2017-04-08 00:15 | NUR ---
BLOOD TAKEN TO LAB BY DECISION SUPPORT ANALYST
[2017-04-08 00:30] LABS: BASOPHILS % (AUTO) 0.1 % (0.0-2.0); EOSINOPHILS % (AUTO) 0.1 % (0.0-6.0); HEMATOCRIT 28 % (39-51); HEMOGLOBIN 8.9 g/dL (13.5-17.5); LYMPHOCYTES # (AUTO) 0.8 /CMM (0.8-4.8); LYMPHOCYTES % (AUTO) 7.3 % (20.0-44.0); MEAN CORPUSCULAR HEMOGLOBIN 33 PG (26.0-33.0); MEAN CORPUSCULAR HGB CONC 32 g/dl (31.0-36.0); MEAN CORPUSCULAR VOLUME 103 fL (80-96); MONOCYTES # (AUTO) 0.7 /CMM (0.1-1.30); MONOCYTES % (AUTO) 6.2 % (2.0-12.0); NEUTROPHILS # (AUTO) 9.3 /CMM (1.8-8.9); NEUTROPHILS % (AUTO) 86.3 % (43.0-81.0); PLATELET COUNT (AUTO) 228 /CMM (150-450); RDW COEFFICIENT OF VARIATION 23.2 (11.5-15.0); RED BLOOD CELL COUNT(AUTO) 2.69 MIL/uL (4.5-6.0); WHITE BLOOD COUNT (AUTO) 10.8 K/uL (4.3-11.0)
--- NOTE | 2017-04-08 00:31 | NUR ---
PT REC'D ON NRB MASK 15LPM. SOB NOTED. B/S ARE COARSE CRACKLES THROUGHOUT. PT PLACED ON BIPAP PER DR HERI BARBA. BIPAP PLUGGED INTO RED OUTLET. AMBU BAG BEDSIDE. ALARMS ARE SET AND AUDIBLE. WILL CONTINUE TO MONITOR Addendum: 04/08/17 at 0034 by LALA LIN RT Amended: Links added.
--- NOTE | 2017-04-08 00:37 | NUR ---
COORDINATE MEASURING EQUIPMENT OPERATOR AT BEDSIDE
[2017-04-08 00:42] LABS: CALCIUM, SERUM 9.5 mg/dL (8.5-10.1); CARBON DIOXIDE 23 mmol/L (21-32); CHLORIDE 110 mmol/L (98-107); CREATININE 1.4 mg/dL (0.6-1.3); GLUCOSE 166 mg/dL (74-106); POTASSIUM 4.2 mmol/L (3.5-5.1); SODIUM SERUM 145 mmol/L (136-145); UREA NITROGEN, BLOOD 37 mg/dL (7-18)
[2017-04-08 00:45] LABS: INR 0.99 (0.87-1.13)
[2017-04-08 00:51] LABS: APPEARANCE,URINE SL CLOUDY (CLEAR); BILIRUBIN,URINE NEGATIVE (NEGATIVE); BLOOD, URINE 2+ Ery/uL (NEGATIVE); COLOR,URINE YELLOW (YELLOW); KETONES,URINE NEGATIVE (NEGATIVE); LEUKOCYTE ESTERASE ,URINE 2+ (NEGATIVE); NITRITE, URINE NEGATIVE (NEGATIVE); PH,URINE 5.5 (5.0-8.0); PROTEIN,URINE 1+ mg/dl (NEGATIVE); UGLUCOSE NEGATIVE (NEGATIVE); UROBILINOGEN,URINE 0.2 EU/dL (0.2)
[2017-04-08 00:52] LABS: TROPONIN I 0.022 ng/mL (0.00-0.056)
[2017-04-08 00:57] LABS: ALANINE AMINOTRANSFERASE 49 U/L (12-78); ALKALINE PHOSPHATASE 123 U/L (46-116); ASPARTATE AMINOTRANSFERASE 52 U/L (15-37); B-TYPE NATRIURETIC PEPTIDE 271 PG/ML (0-125); BILIRUBIN,DIRECT 0.1 mg/dL (0.0-0.2); BILIRUBIN,TOTAL 0.2 mg/dL (0.2-1.0); TOTAL PROTEIN, SERUM 6.1 g/dL (6.4-8.2)
[2017-04-08] MEDS ORDERED: CEFTRIAXONE 1GM BAG (ER ONLY) 1 GM/50 ML PIGGYBACK IV ONE (01:00)
[2017-04-08 01:03] LABS: BACTERIA,URINE Moderate /HPF (None Seen); CALCIUM OXALATE CRYSTALS,UR Few /HPF (None Seen); RBC,URINE 21-50 /HPF (0-2); SQUAMOUS EPITHELIAL CELL,UR Few /HPF (None Seen); WBC,URINE 51-80 /HPF (0-3)
[2017-04-08] MEDS ORDERED: CEFTRIAXONE 1 G VIAL ONE (01:03)
[2017-04-08 01:13] LABS: ABG BASE EXCESS -3.3 mmol/L; ABG PCO2 40.5 mmHg (35.0-45.0); ABG PH 7.352 (7.350-7.450); ABG PO2 91.5 mmHg (75.0-100.0); AaDO2 291.8 mmHg; COHb 0.6 % (0.5-1.5); MetHb 0.6 % (0.0-1.5); O2Hb 93.9 % (94.0-97.0); SITE, ABG Right Radial; VENT MODE, BG BIPAP 15/5 60% BR 18
--- NOTE | 2017-04-08 01:14 | NUR ---
ICU 263
--- NOTE | 2017-04-08 01:25 | NUR ---
CRITICAL LAB OF LACTIC ACID 4.6
[2017-04-08] MEDS ORDERED: AZITHROMYCIN 500 MG in IV D5W 250 ML IV SCH (01:30)
[2017-04-08] MEDS ORDERED: AZITHROMYCIN 500 MG VIAL ONE (01:37)
--- NOTE | 2017-04-08 02:21 | NUR ---
REPORT CALLED TO ELLE ROJAS IN ICU FOR IZAIAH.
--- NOTE | 2017-04-08 02:45 | NUR ---
PT TRANSPORTED TO ICU 263 VIA STRETCHER ON INTERNATIONAL LOGISTICS COORDINATOR WITH RN AND RT PER ACLS PROTOCOL. VSS.
[2017-04-08] MEDS ORDERED: ZOLPIDEM TARTRATE 5 MG TABLET PO PRN (04:30)
[2017-04-08] MEDS ORDERED: MAG HYDROX/AL HYDROX/SIMETH 30 ML UDC PO PRN (04:30)
[2017-04-08] MEDS ORDERED: HYDROCODONE/APAP 5/325MG 1 EACH TABLET PO PRN (04:30)
[2017-04-08] MEDS ORDERED: ACETAMINOPHEN 325 MG TABLET PO PRN (04:30)
[2017-04-08] MEDS ORDERED: ONDANSETRON HCL/PF 4 MG/2 ML VIAL IVP PRN (04:30)
[2017-04-08] MEDS ORDERED: MAGNESIUM HYDROXIDE 30 ML UDC PO PRN (04:30)
[2017-04-08] MEDS ORDERED: ENOXAPARIN SODIUM 40 MG/0.4 ML DISP.SYRIN SQ SCH (04:30)
[2017-04-08] MEDS ORDERED: VANCOMYCIN 1 GM in IV D5W 250 ML IV SCH (04:30)
[2017-04-08] MEDS ORDERED: PIPERACILLIN /TAZOBACTAM 3.375 G VIAL IV ONE (04:50)
[2017-04-08] MEDS ORDERED: ENOXAPARIN SODIUM 40 MG/0.4 ML DISP.SYRIN SQ ONE (04:50)
[2017-04-08] MEDS ORDERED: VANCOMYCIN 1 GM VIAL ONE ×2 (04:50→23:22)
--- NOTE | 2017-04-08 05:00 | NUR ---
FILLING STATION LABORER - ADMISSION NOTES - PT RECEIVED FROM ER FOR RESPIRATORY FAILURE WITH CONGESTION AND LOW 02SAT 80%. PT IS NON VERBAL, ADVANCED DEMENTIA, HX OF SCHIZOPHRENIA. PT IS PLACED ON BIPAP SETTINGS PER ORDER. PT IS IN NSR, HR 70S, SBP 90S. PT HAS F/C WITH CLOUDY RENEE URINE ADEQUATE AMOUNT. PT IS NPO. PT HAS REDNESS/EXCORIATION ON THE SACRUM AND JOSE AREA. PT HAS 2 IVS PATENT WITH NS @ 75 ML/HR INFUSING, PT IS RECEIVING ANTIBIOTICS. WILL CONTINUE TO MONITOR
[2017-04-08] MEDS: IV NS 0.9% 1,000 ML IV PRN ×2 (05:07→21:24)
[2017-04-08] MEDS: PIPERACILLIN /TAZOBACTAM 3.375 G in IV NS 0.9% 50 ML IV SCH ×4 (05:11→23:31)
[2017-04-08 06:46] LABS: ABG BASE EXCESS -2.2 mmol/L; ABG OXYGEN SATURATION 98.1 % (92.0-98.5); ABG PCO2 45.6 mmHg (35.0-45.0); ABG PH 7.333 (7.350-7.450); ABG PO2 165.1 mmHg (75.0-100.0); AaDO2 212.5 mmHg; COHb 0.3 % (0.5-1.5); O2Hb 96.8 % (94.0-97.0); SITE, ABG Right Radial; VENT MODE, BG S/T 18 15/5 60%
--- NOTE | 2017-04-08 07:35 | NUR ---
PT. RECEIVED ON BIPAP WITH FOLLOWING PARAMETERS: IPAP 15, EPAP 5, FREQ 18, FIO2 60%. BREATH SOUNDS BILATERAL MOIST CREPITANT RALES. PT. PLACE INTO NASAL CANNULA @ 3 LPM O2 FLOW SPO2 99% Addendum: 04/08/17 at 0738 by CARROLL CONTRERAS RT Amended: Links added.
[2017-04-08] MEDS: ENOXAPARIN SODIUM 40 MG/0.4 ML DISP.SYRIN SQ SCH (08:23)
--- NOTE | 2017-04-08 08:24 | NUR ---
RN NOTE; LOVENOX NON -ADMINISTERED AT THIS TIME DUE TO PATIENT LAST RECEIVED TODAY'S DOSE AT 0459 AM .
--- NOTE | 2017-04-08 08:56 | NUR ---
WOUND CARE CONSULT: PT PRESENTS WITH STAGE 3 SACRAL ULCER AND RASH TO PERINEUM AND BUTTOCKS, PRESENT ON ADMISSION. RECOMMENDATIONS MADE FOR SKIN PROTECTION AND WOUND CARE. DISCUSSED WITH NURSING STAFF. RECOMMEND SURGICAL CONSULT. FIRST STEP MATTRESS ORDERED. ALL SKIN PROTECTION MEASURES IN PLACE. WILL SEE PRN. MERCHANT IN AGREEMENT WITH PLAN OF CARE. Addendum: 04/08/17 at 0858 by CHRISSY BERNAL WNDNU Amended: Links added.
[2017-04-08] MEDS ORDERED: FEE PK DOSING 1 MIN EA MC ONE (09:04)
--- NOTE | 2017-04-08 09:25 | NUR ---
RN NOTE; EL RUVALCABA PAGED FOR PATIENTS DECREASED LEVEL OF CONSCIOUSNESS , DECREASED BP 82/56, DECREASED TEMP. 88.7 , RECEIVED ORDER TO START LEVOPHED DOUBLE CONCENTRATION , RANDY HUGGER , AND TO PUT BACK ON BIPAP .RT AT THE BED SIDE , ORDER NOTED AND CARRIED OUT.
[2017-04-08 09:35] LABS: ABG BASE EXCESS -2.1 mmol/L; ABG OXYGEN SATURATION 89.9 % (92.0-98.5); ABG PCO2 39.9 mmHg (35.0-45.0); ABG PH 7.377 (7.350-7.450); ABG PO2 68.7 mmHg (75.0-100.0); AaDO2 98.3 mmHg; COHb 0.3 % (0.5-1.5); MetHb 1.1 % (0.0-1.5); O2Hb 88.6 % (94.0-97.0); SITE, ABG Right Brachial; VENT MODE, BG venturi mask @ 30%
--- NOTE | 2017-04-08 09:44 | NUR ---
PT. PLACE INTO 30% VIA VENTURI MASK ORDER. SPO2 96 - 98% Addendum: 04/08/17 at 0945 by CARROLL CONTRERAS RT Amended: Links added.
[2017-04-08] MEDS: NOREPINEPHRINE 16 MG in IV D5W 500 ML IV PRN (09:47)
[2017-04-08] MEDS ORDERED: IV NS 0.9% 500 ML IV ONE (11:00)
[2017-04-08] MEDS: HYDROGEL DRESSING 90 GM TUBE TP SCH (11:02)
[2017-04-08] MEDS: CLOTRIMAZOLE 1% 15 GM TUBE TP SCH ×2 (12:28→18:31)
[2017-04-08 14:32] LABS: ABG OXYGEN SATURATION 93.7 % (92.0-98.5); ABG PCO2 29.9 mmHg (35.0-45.0); ABG PH 7.485 (7.350-7.450); ABG PO2 73.6 mmHg (75.0-100.0); AaDO2 105.2 mmHg; O2Hb 92.8 % (94.0-97.0); SITE, ABG Right Brachial
--- NOTE | 2017-04-08 19:43 | NUR ---
RN EOS NOTE; PATIENT ON THE BED WITHOUT ANY DISTRESS , SATING WELL ON VENTURI MASK , CONTINUE ON LEVOPHED @ 6 MCG, ENDORSE TO NEXT SHIFT RN TO CONTINUITY OF CARE
--- NOTE | 2017-04-08 20:00 | NUR ---
PT RECEIVED PT IS NON VERBAL, ADVANCED DEMENTIA, HX OF SCHIZOPHRENIA. PT IS PLACED ON VENTI MASK 8 LPM 30%. PT IS IN NSR, SBP 90S ON LEVO 6. PT HAS F/C WITH CLOUDY RENEE URINE ADEQUATE AMOUNT. PT IS NPO. PT HAS REDNESS/EXCORIATION ON THE SACRUM AND JOSE AREA. PT HAS 2 IVS PATENT WITH NS @ 75 ML/HR INFUSING, PT IS RECEIVING ANTIBIOTICS. WILL CONTINUE TO MONITOR
[2017-04-08] MEDS ORDERED: VANCOMYCIN 1.25 GM in IV D5W 500 ML IV SCH (23:00)
[2017-04-08] MEDS ORDERED: VANCOMYCIN 500 MG VIAL ONE (23:22)
[2017-04-09] VITALS (93 sets, daily range): BP systolic 36–132; BP diastolic 23–82
--- NOTE | 2017-04-09 01:41 | NUR ---
PT SOUNDS VERY CONGESTED, WITH WEAK COUGH, NOT EFFECTIVELY CLEARING SECRETIONS, NT SUCTION X2 DONE, AND ORAL CARE DONE
--- NOTE | 2017-04-09 02:00 | NUR ---
PT VOMITED DURING SUCTION, I TURNED PT ON HIS SIDE AND TRIED TO SUCTION ALL OF THE EMESIS. I PLACED THE PT ON NON REBREATHER 15 LPM TO MAINTAIN O2SAT.
--- NOTE | 2017-04-09 04:32 | NUR ---
DR DUGAN NOTIFIED THAT PT IS BREATHING 40S, WILL DO ABG STAT
[2017-04-09 04:50] LABS: ABG BASE EXCESS -2.4 mmol/L; ABG OXYGEN SATURATION 74.2 % (92.0-98.5); ABG PCO2 39.7 mmHg (35.0-45.0); ABG PH 7.374 (7.350-7.450); ABG PO2 46.8 mmHg (75.0-100.0); AaDO2 626.5 mmHg; COHb 0.3 % (0.5-1.5); MetHb 1.1 % (0.0-1.5); O2Hb 73.2 % (94.0-97.0); SITE, ABG Left Radial; VENT MODE, BG NRB
[2017-04-09 05:09] LABS: EOSINOPHILS % (AUTO) 0.1 % (0.0-6.0); HEMATOCRIT 25 % (39-51); HEMOGLOBIN 8.1 g/dL (13.5-17.5); LYMPHOCYTES # (AUTO) 0.6 /CMM (0.8-4.8); LYMPHOCYTES % (AUTO) 3.4 % (20.0-44.0); MEAN CORPUSCULAR HEMOGLOBIN 33 PG (26.0-33.0); MEAN CORPUSCULAR HGB CONC 32 g/dl (31.0-36.0); MEAN CORPUSCULAR VOLUME 104 fL (80-96); MONOCYTES # (AUTO) 0.5 /CMM (0.1-1.30); MONOCYTES % (AUTO) 2.9 % (2.0-12.0); NEUTROPHILS # (AUTO) 16.4 /CMM (1.8-8.9); NEUTROPHILS % (AUTO) 93.6 % (43.0-81.0); PLATELET COUNT (AUTO) 147 /CMM (150-450); RDW COEFFICIENT OF VARIATION 23.5 (11.5-15.0); RED BLOOD CELL COUNT(AUTO) 2.42 MIL/uL (4.5-6.0); WHITE BLOOD COUNT (AUTO) 17.5 K/uL (4.3-11.0)
[2017-04-09 05:16] LABS: ABG BASE EXCESS -1.5 mmol/L; ABG OXYGEN SATURATION 94.8 % (92.0-98.5); ABG PCO2 37.5 mmHg (35.0-45.0); ABG PH 7.405 (7.350-7.450); ABG PO2 87.6 mmHg (75.0-100.0); AaDO2 587.9 mmHg; COHb 0.3 % (0.5-1.5); MetHb 0.9 % (0.0-1.5); O2Hb 93.7 % (94.0-97.0); SITE, ABG Right Radial; VENT MODE, BG NRB
[2017-04-09] MEDS: PIPERACILLIN /TAZOBACTAM 3.375 G in IV NS 0.9% 50 ML IV SCH ×3 (05:19→17:46)
[2017-04-09 05:21] LABS: B-TYPE NATRIURETIC PEPTIDE 749 PG/ML (0-125); CALCIUM, SERUM 9.1 mg/dL (8.5-10.1); CARBON DIOXIDE 23 mmol/L (21-32); CHLORIDE 110 mmol/L (98-107); CREATININE 1.8 mg/dL (0.6-1.3); GLUCOSE 121 mg/dL (74-106); MAGNESIUM 1.8 mg/dL (1.8-2.4); PHOSPHORUS 6.8 mg/dL (2.5-4.9); SODIUM SERUM 143 mmol/L (136-145); UREA NITROGEN, BLOOD 43 mg/dL (7-18)
[2017-04-09 05:24] LABS: CHOLESTEROL 101 mg/dL (<200); HDL CHOLESTEROL 46 mg/dL (40-60); LDL 38 mg/dL (0-99); TRIGLYCERIDES 47 mg/dL (30-150)
[2017-04-09 05:44] LABS: BAND % (MANUAL) 6 % (0.0-5.0); EOSINOPHILS % (MANUAL) 2 % (0-4); LYMPHOCYTES % (MANUAL) 7 % (16-48); MONOCYTES % (MANUAL) 2 % (0-11.0); NEUTROPHILS % (MANUAL) 83 (42-76)
--- NOTE | 2017-04-09 08:00 | NUR ---
ICU/RN - Notes Pt noted to be congested, tachypneic with RR up to 50s, and desaturation with O2 88% on non-rebreather mask @ 15lpm. Notified RT Andi, who is attempting to deep suction nasopharyngeal patient at bedside.
[2017-04-09] MEDS: ALBUTEROL FS 2.5 MG/0.5 ML VIAL.NEB NEB PRN ×2 (08:03→16:34)
[2017-04-09] MEDS: IPRATROPIUM NEB FS 0.5 MG/2.5 ML AMPUL.NEB NEB PRN ×2 (08:03→16:34)
[2017-04-09] MEDS: ENOXAPARIN SODIUM 40 MG/0.4 ML DISP.SYRIN SQ SCH (08:12)
[2017-04-09] MEDS: HYDROGEL DRESSING 90 GM TUBE TP SCH (08:12)
[2017-04-09] MEDS: CLOTRIMAZOLE 1% 15 GM TUBE TP SCH ×2 (08:12→16:51)
--- NOTE | 2017-04-09 09:15 | NUR ---
ICU/RN - Notes Pt hypotensive, Levophed gtt restarted. Nursing supervisor varnish made aware of pt's need for PICC line insertion.
[2017-04-09 09:23] LABS: ABG BASE EXCESS -3.6 mmol/L; ABG OXYGEN SATURATION 85.6 % (92.0-98.5); MetHb 0.7 % (0.0-1.5); SITE, ABG Right Brachial; VENT MODE, BG NONREBREATHER 100%
--- NOTE | 2017-04-09 09:30 | NUR ---
ICU/RN - Notes Dr Shay at bedside for evaluation. ABG results relayed to MD, aware of pt's current respiratory status - tachypneic, O2 saturation 88-90% on NRB 15lpm. Per MD, not much we can do for pt considering code status.
[2017-04-09] MEDS ORDERED: ACETYLCYSTEINE 10% SOLN 400 MG/4 ML VIAL NEB SCH (10:00)
[2017-04-09] MEDS ORDERED: BUMETANIDE INJ 6 MG in IV NS 0.9% 36 ML IV ONE (12:00)
[2017-04-09] MEDS ORDERED: SODIUM POLYSTYRENE SULFONATE 15 G/60 ML BOTTLE PO ONE (12:00)
[2017-04-09] MEDS: NOREPINEPHRINE 16 MG in IV D5W 500 ML IV PRN ×2 (12:20→21:25)
--- NOTE | 2017-04-09 12:50 | NUR ---
ICU/RN - Notes NG tube inserted to right nare, positive placement verified with charge nurse Neno. Kayexelate administered via NG tube as ordered.
[2017-04-09] MEDS: IV NS 0.9% 1,000 ML IV PRN (15:32)
--- NOTE | 2017-04-09 16:20 | NUR ---
ICU/RN - Notes Dr Shay made aware that pt desaturating to 84% on NRB mask, despite several attempts to deep suction pt. Per Dr Shay, place pt back on Bipap titrate to keep SpO2 above 90%. RT Andi made aware, pt placed back on Bipap.
[2017-04-09] MEDS: ACETYLCYSTEINE 10% SOLN 400 MG/4 ML VIAL NEB SCH ×2 (16:34→23:50)
[2017-04-09 16:40] LABS: CREATININE, URINE 98.2 MG/DL (30.0-125.0); URINE TOTAL PROTEIN 91.5 mg/dL (0-11.9)
[2017-04-09 16:45] LABS: APPEARANCE,URINE SL CLOUDY (CLEAR); BILIRUBIN,URINE NEGATIVE (NEGATIVE); BLOOD, URINE 2+ Ery/uL (NEGATIVE); COLOR,URINE YELLOW (YELLOW); KETONES,URINE TRACE (NEGATIVE); LEUKOCYTE ESTERASE ,URINE 1+ (NEGATIVE); NITRITE, URINE NEGATIVE (NEGATIVE); PROTEIN,URINE 1+ mg/dl (NEGATIVE); UGLUCOSE NEGATIVE (NEGATIVE); UROBILINOGEN,URINE 0.2 EU/dL (0.2)
[2017-04-09 17:10] LABS: BACTERIA,URINE Few /HPF (None Seen); RBC,URINE 21-50 /HPF (0-2); SQUAMOUS EPITHELIAL CELL,UR Rare /HPF (None Seen)
[2017-04-09 17:14] LABS: CALCIUM, SERUM 9.1 mg/dL (8.5-10.1); CARBON DIOXIDE 21 mmol/L (21-32); CHLORIDE 112 mmol/L (98-107); CREATININE 2.3 mg/dL (0.6-1.3); GLUCOSE 70 mg/dL (74-106); POTASSIUM 5.9 mmol/L (3.5-5.1); SODIUM SERUM 146 mmol/L (136-145); UREA NITROGEN, BLOOD 49 mg/dL (7-18)
--- NOTE | 2017-04-09 17:30 | NUR ---
ICU/RN - Notes Dr Luque made aware of pt's hypotension, maxed out on Levophed. Received order to start Neosynephrine. Will carry out.
[2017-04-09 17:43] LABS: EOSINOPHIL,URINE None Seen
[2017-04-09] MEDS: PHENYLEPHRINE 80 MG in IV D5W 250 ML IV PRN ×2 (17:46→21:27)
[2017-04-09] MEDS ORDERED: DOSE PER PHARMACY MICAFUNGIN 1 EA XX PRN (21:00)
[2017-04-09] MEDS ORDERED: MICAFUNGIN SODIUM 100 MG in IV NS 0.9% 100 ML IV SCH (21:00)
[2017-04-09] MEDS: MEROPENEM 500 MG in IV NS 0.9% 50 ML IV SCH (21:25)
[2017-04-09] MEDS ORDERED: VANCOMYCIN 1.25 GM in IV D5W 500 ML IV SCH (23:00)
[2017-04-10] VITALS (95 sets, daily range): BP systolic 84–131; BP diastolic 33–115
[2017-04-10] MEDS: PHENYLEPHRINE 80 MG in IV D5W 250 ML IV PRN ×2 (03:59→20:29)
[2017-04-10] MEDS: NOREPINEPHRINE 16 MG in IV D5W 500 ML IV PRN ×3 (04:04→18:20)
[2017-04-10 05:34] LABS: EOSINOPHILS # (AUTO) 0.2 /CMM (0.0-0.7); EOSINOPHILS % (AUTO) 0.5 % (0.0-6.0); HEMATOCRIT 24 % (39-51); HEMOGLOBIN 7.5 g/dL (13.5-17.5); LYMPHOCYTES # (AUTO) 0.4 /CMM (0.8-4.8); LYMPHOCYTES % (AUTO) 1.1 % (20.0-44.0); MEAN CORPUSCULAR HEMOGLOBIN 33 PG (26.0-33.0); MEAN CORPUSCULAR HGB CONC 32 g/dl (31.0-36.0); MEAN CORPUSCULAR VOLUME 104 fL (80-96); MONOCYTES # (AUTO) 0.2 /CMM (0.1-1.30); MONOCYTES % (AUTO) 0.6 % (2.0-12.0); NEUTROPHILS # (AUTO) 34.6 /CMM (1.8-8.9); NEUTROPHILS % (AUTO) 97.8 % (43.0-81.0); PLATELET COUNT (AUTO) 89 /CMM (150-450); RDW COEFFICIENT OF VARIATION 23.1 (11.5-15.0); RED BLOOD CELL COUNT(AUTO) 2.28 MIL/uL (4.5-6.0)
[2017-04-10 05:52] LABS: ALANINE AMINOTRANSFERASE 34 U/L (12-78); ALKALINE PHOSPHATASE 102 U/L (46-116); ASPARTATE AMINOTRANSFERASE 39 U/L (15-37); BILIRUBIN,TOTAL 0.6 mg/dL (0.2-1.0); CALCIUM, SERUM 8.8 mg/dL (8.5-10.1); CARBON DIOXIDE 22 mmol/L (21-32); CHLORIDE 110 mmol/L (98-107); CREATININE 2.4 mg/dL (0.6-1.3); GLUCOSE 77 mg/dL (74-106); MAGNESIUM 1.9 mg/dL (1.8-2.4); PHOSPHORUS 7.8 mg/dL (2.5-4.9); POTASSIUM 5.5 mmol/L (3.5-5.1); SODIUM SERUM 143 mmol/L (136-145); THYROID STIMULATING HORMONE 7.116 uIU/mL (0.358-3.74); TOTAL PROTEIN, SERUM 5.3 g/dL (6.4-8.2); UREA NITROGEN, BLOOD 49 mg/dL (7-18)
[2017-04-10 06:11] LABS: ALBUMIN 1.4 g/dL (3.4-5.0)
[2017-04-10 06:13] LABS: WHITE BLOOD COUNT (AUTO) 35.4 K/uL (4.3-11.0)
[2017-04-10] MEDS: IV NS 0.9% 1,000 ML IV PRN (07:38)
[2017-04-10] MEDS: ACETYLCYSTEINE 10% SOLN 400 MG/4 ML VIAL NEB SCH ×3 (07:39→23:30)
[2017-04-10] MEDS: HYDROGEL DRESSING 90 GM TUBE TP SCH (08:10)
[2017-04-10] MEDS: ENOXAPARIN SODIUM 40 MG/0.4 ML DISP.SYRIN SQ SCH (08:10)
[2017-04-10] MEDS: MEROPENEM 500 MG in IV NS 0.9% 50 ML IV SCH ×2 (08:10→20:12)
[2017-04-10] MEDS: CLOTRIMAZOLE 1% 15 GM TUBE TP SCH ×2 (08:12→16:22)
--- NOTE | 2017-04-10 09:00 | NUR ---
RT NOTE: PATIENT NT SUCTIONED TO OBTAIN LARGE THIN DARK BROWN CONTENT. AND NURSE(MAGI) NOTIFIED.
[2017-04-10] MEDS ORDERED: SODIUM POLYSTYRENE SULFONATE 15 G/60 ML BOTTLE PO ONE (09:30)
[2017-04-10 10:01] LABS: ABG BASE EXCESS -2.3 mmol/L; ABG OXYGEN SATURATION 94.2 % (92.0-98.5); ABG PCO2 30.1 mmHg (35.0-45.0); AaDO2 460.8 mmHg; COHb 0.3 % (0.5-1.5); MetHb 1.3 % (0.0-1.5); O2Hb 92.7 % (94.0-97.0); SITE, ABG Left Radial; VENT MODE, BG ST 20/10 18 80%
[2017-04-10 10:10] LABS: BAND % (MANUAL) 39 % (0.0-5.0); EOSINOPHILS % (MANUAL) 2 % (0-4); LYMPHOCYTES % (MANUAL) 1 % (16-48); METAMYELOCYTES % 5 % (0-0); MONOCYTES % (MANUAL) 9 % (0-11.0); NEUTROPHILS % (MANUAL) 44 (42-76)
--- NOTE | 2017-04-10 14:13 | NUR ---
ICU/RN - Notes Pt noted with Afib with RVR HR up to 170s. BP 107/54 on Levophed and Neosynephrine gtt. Dr Obrien made aware and received new orders to give Amiodarone bolus and start Amiodarone gtt. Pharmacy called and made aware medication needed stat. Will administer as soon as delivered.
[2017-04-10] MEDS ORDERED: AMIODARONE 150 MG in IV D5W 100 ML IV ONE (14:30)
[2017-04-10] MEDS ORDERED: AMIODARONE 900 MG in IV D5W 482 ML IV PRN (14:30)
[2017-04-10] MEDS ORDERED: VANCOMYCIN 0.75 GM in IV D5W 250 ML IV SCH (15:00)
[2017-04-10] MEDS: LACTOBACILLUS RHAMNOSUS GG 1 EACH CAP.SPRINK PO SCH (16:24)
--- NOTE | 2017-04-10 16:33 | NUR ---
RT NOTE: PATIENT RECEIVED ON BIPAP RESP-V60. SETTINGS PER 'S ORDERS. ALARMS SET AND AUDIBLE. TOLERATING WELL AT THIS TIME. TITRATED FI02 TO MAINTAIN SP02>94%. AMBU BAG AT [facility].
[2017-04-10] MEDS: VANCOMYCIN 0.75 GM in IV D5W 250 ML IV SCH (16:54)
--- NOTE | 2017-04-10 18:37 | NUR ---
ICU/RN - Notes SR 75 with PAC's on the monitor. Pt appears comfortable on Bipap with RR 25, SpO2 100%.
--- NOTE | 2017-04-10 19:47 | NUR ---
STEEL TURNER. INITIAL ASSESSMENT RECEIVED THE PT REST ON THE BED, OPEN EYES. DOES NOT FOLLOW COMMANDS. CELLULOID TRIMMER SHOWING NSR, BIPAP ON. SETTINGS 20/10,RATE 18,FIO2 100%.SAT 98%. IV RT UPPER ARM PICC LINE AMIODARONE 1MG/MIN,IVF NS 75ML/H,LEVOPHED 40MCG/MIN,DONNELL 80MCG/MIN.FC PATENT. NPO. RT NARE NGT INTACT. WILIAM SOFT WRIST RESTRAINT CHECKED AND RELEASED. NO INJURY OR REDNESS NOTED. HOB ELEVATED. TURN AND REPOSITION Q2H. WILL CONTINUE TO MONITOR VITALS.
[2017-04-10] MEDS: MICAFUNGIN SODIUM 100 MG in IV NS 0.9% 100 ML IV SCH (20:12)
[2017-04-10 20:24] LABS: CREATININE, URINE 14.2 MG/DL (30.0-125.0)
[2017-04-10] MEDS ORDERED: FLUCONAZOLE IN NS 200 MG in PREMIX 1 EA IV SCH ×2 (21:00)
[2017-04-11] VITALS (79 sets, daily range): BP systolic 85–132; BP diastolic 26–115
[2017-04-11] MEDS: NOREPINEPHRINE 16 MG in IV D5W 500 ML IV PRN ×3 (01:01→19:03)
[2017-04-11] MEDS: IV NS 0.9% 1,000 ML IV PRN ×2 (01:02→15:39)
[2017-04-11 04:56] LABS: CALCIUM, SERUM 8.4 mg/dL (8.5-10.1); CARBON DIOXIDE 22 mmol/L (21-32); CHLORIDE 108 mmol/L (98-107); CREATININE 2.5 mg/dL (0.6-1.3); GLUCOSE 97 mg/dL (74-106); OSMOLALITY,SERUM 309 mOS/kg (278-305); POTASSIUM 3.8 mmol/L (3.5-5.1); SODIUM SERUM 140 mmol/L (136-145); UREA NITROGEN, BLOOD 57 mg/dL (7-18)
--- NOTE | 2017-04-11 05:25 | NUR ---
C 13 CATAPULT OPERATOR. AROUND 2230. MONITOR SHOWING AFIB RATE WAS 140.30MINUTE LATER SHOWING NSR.
--- NOTE | 2017-04-11 05:44 | NUR ---
RT PT RECEIVED ON BIPAP WITH NOTED SETTING. PT TOLERATED SETTING WELL. NO SOB OR RESP DISTRESS NOTED ON SHIFT. FIO2 WAS TITRATED PER PT NEED. PT WAS SUCTIONED DUE TO EPISODES OF DESATURATIONS. REMOVED LARGE AMOUNT OF THICK BROWN/WHITE SECRETIONS. Addendum: 04/11/17 at 0549 by CONCHA JONES RT Amended: Links added.
--- NOTE | 2017-04-11 06:33 | NUR ---
DENTAL CHAIR ASSEMBLER. BED SCALE NOT WORKING. PT IS UNSTABLE,
[2017-04-11 07:46] LABS: BILIRUBIN,DIRECT 0.3 mg/dL (0.0-0.2)
[2017-04-11] MEDS: ACETYLCYSTEINE 10% SOLN 400 MG/4 ML VIAL NEB SCH ×3 (07:48→23:51)
[2017-04-11] MEDS: MEROPENEM 500 MG in IV NS 0.9% 50 ML IV SCH ×2 (08:14→20:52)
[2017-04-11] MEDS: LACTOBACILLUS RHAMNOSUS GG 1 EACH CAP.SPRINK PO SCH ×2 (08:14→16:07)
[2017-04-11] MEDS: HYDROGEL DRESSING 90 GM TUBE TP SCH (08:14)
[2017-04-11] MEDS: CLOTRIMAZOLE 1% 15 GM TUBE TP SCH ×2 (08:17→16:07)
[2017-04-11 08:55] LABS: EOSINOPHILS # (AUTO) 0.1 /CMM (0.0-0.7); EOSINOPHILS % (AUTO) 0.3 % (0.0-6.0); HEMATOCRIT 22 % (39-51); LYMPHOCYTES # (AUTO) 0.3 /CMM (0.8-4.8); LYMPHOCYTES % (AUTO) 0.8 % (20.0-44.0); MEAN CORPUSCULAR HEMOGLOBIN 33 PG (26.0-33.0); MEAN CORPUSCULAR HGB CONC 32 g/dl (31.0-36.0); MEAN CORPUSCULAR VOLUME 103 fL (80-96); MONOCYTES # (AUTO) 0.3 /CMM (0.1-1.30); MONOCYTES % (AUTO) 0.8 % (2.0-12.0); NEUTROPHILS # (AUTO) 38.3 /CMM (1.8-8.9); NEUTROPHILS % (AUTO) 98.1 % (43.0-81.0); PLATELET COUNT (AUTO) 61 /CMM (150-450); RDW COEFFICIENT OF VARIATION 22.8 (11.5-15.0)
[2017-04-11 08:59] LABS: HEMOGLOBIN 6.9 g/dL (13.5-17.5)
[2017-04-11 09:55] LABS: BAND % (MANUAL) 46 % (0.0-5.0); LYMPHOCYTES % (MANUAL) 2 % (16-48); METAMYELOCYTES % 2 % (0-0); MONOCYTES % (MANUAL) 3 % (0-11.0); NEUTROPHILS % (MANUAL) 47 (42-76)
[2017-04-11] MEDS: PANTOPRAZOLE 40 MG VIAL IV SCH ×2 (10:28→16:16)
--- NOTE | 2017-04-11 10:41 | NUR ---
ICU/RN - Notes Pt noted with dark reddish brown emesis. NGT connected to suction with approximately 500mL of dark reddish brown output. Dr Luque called and made aware of emesis and Hgb 6.9. Received orders for 1 unit of PRBC and Protonix IVP. Zofran IVP and Protonix administered as ordered. Pt's son Myron called and provided updated on pt's current status. Received consent from son for blood transfusion. Telephone consent verified with second nurse.
[2017-04-11] MEDS: PHENYLEPHRINE 80 MG in IV D5W 250 ML IV PRN (11:45)
[2017-04-11 11:49] LABS: ABG BASE EXCESS -4.7 mmol/L; ABG OXYGEN SATURATION 94.1 % (92.0-98.5); ABG PCO2 35.9 mmHg (35.0-45.0); ABG PH 7.367 (7.350-7.450); ABG PO2 82.2 mmHg (75.0-100.0); AaDO2 233.9 mmHg; COHb 0.2 % (0.5-1.5); MetHb 1.2 % (0.0-1.5); O2Hb 92.8 % (94.0-97.0); SITE, ABG Left Radial
--- NOTE | 2017-04-11 13:15 | NUR ---
ICU/RN - Notes PRBC transfusion infusing well at this time, with no s/s of adverse reactions noted.
[2017-04-11] MEDS: VANCOMYCIN 0.75 GM in IV D5W 250 ML IV SCH (16:16)
[2017-04-11] MEDS: AMIODARONE 900 MG in IV D5W 482 ML IV PRN (19:04)
--- NOTE | 2017-04-11 19:47 | NUR ---
LARD TUB WASHER. INITIAL ASSESSMENT. RECEIVED THE PTY REST ON THE BED, DOES NOT FOLLOW COMMANDS. LETHARGIC. BIPAP ON SETTINGS 20/5,RATE 18,FIO2 80%. SCHOLASTIC APTITUDE TEST GRADER SHOWINGAT THIS TIME NSR. WITH PVCS,IV LT UPPER ARM PICC LINE AMIODARONE 0.5MG/MIN,NS 75ML/H,LEVOPHED 32MCG/MIN, FC PATENT. WILIAM SOFT WRIST RESTRAINT CHECKED AND RELEASED, NO INJURY OR REDNESS NOTED. RT NARE NGT INTACT. LOW INTERMITTENT SUCTION, TURN AND REPOSITION Q2H. WILL CONTINUE TO MONITOR VITALS.
[2017-04-11] MEDS: LINEZOLID RTU BAG 600 MG in PREMIX 1 EA IV SCH (20:52)
[2017-04-11] MEDS: MICAFUNGIN SODIUM 100 MG in IV NS 0.9% 100 ML IV SCH (20:55)
[2017-04-11 21:13] LABS: APPEARANCE,URINE SL CLOUDY (CLEAR); BILIRUBIN,URINE NEGATIVE (NEGATIVE); BLOOD, URINE TRACE-INTA Ery/uL (NEGATIVE); COLOR,URINE YELLOW (YELLOW); KETONES,URINE NEGATIVE (NEGATIVE); LEUKOCYTE ESTERASE ,URINE NEGATIVE (NEGATIVE); NITRITE, URINE NEGATIVE (NEGATIVE); PROTEIN,URINE NEGATIVE (NEGATIVE); UGLUCOSE NEGATIVE (NEGATIVE); UROBILINOGEN,URINE 0.2 EU/dL (0.2)
[2017-04-11 21:27] LABS: BACTERIA,URINE None seen /HPF (None Seen); SQUAMOUS EPITHELIAL CELL,UR Rare /HPF (None Seen); WBC,URINE 0-2 /HPF (0-3)
[2017-04-12] VITALS (66 sets, daily range): BP systolic 76–136; BP diastolic 38–83
[2017-04-12] MEDS: NOREPINEPHRINE 16 MG in IV D5W 500 ML IV PRN ×2 (02:25→16:52)
--- NOTE | 2017-04-12 03:48 | NUR ---
RT pt remains on BiPAP during the night. Addendum: 04/12/17 at 0349 by KONSTANTIN PADRON RT Amended: Links added.
--- NOTE | 2017-04-12 04:24 | NUR ---
ING WING NSR. IV LT UPPER ARM PICC LINE AMIODARONE 0.5MCG/MIN,LEVO 32MCG/MIN,IVF NS 75ML/H, HOB ELEVATED. RT NARE NGT LOW INTERMITTENT SUCTION FC PATENT. URINE DRAINING. WILIAM SOFT WRIST RESTRAINT CHECKED AND RELEASED NO INJURY OR REDNESS NOTED. NPO. HOB ELEVATED. TURN AND REPOSITION Q2H. WILL CONTINUE TO MONITOR VITALS.
[2017-04-12 04:54] LABS: CALCIUM, SERUM 8.3 mg/dL (8.5-10.1); CARBON DIOXIDE 23 mmol/L (21-32); CHLORIDE 107 mmol/L (98-107); CREATININE 2.3 mg/dL (0.6-1.3); GLUCOSE 96 mg/dL (74-106); POTASSIUM 3.7 mmol/L (3.5-5.1); SODIUM SERUM 143 mmol/L (136-145); UREA NITROGEN, BLOOD 54 mg/dL (7-18)
[2017-04-12] MEDS: ALBUTEROL FS 2.5 MG/0.5 ML VIAL.NEB NEB PRN (07:11)
[2017-04-12] MEDS: IPRATROPIUM NEB FS 0.5 MG/2.5 ML AMPUL.NEB NEB PRN (07:11)
[2017-04-12] MEDS: ACETYLCYSTEINE 10% SOLN 400 MG/4 ML VIAL NEB SCH ×3 (07:11→23:58)
--- NOTE | 2017-04-12 07:36 | NUR ---
APPLICATION OPERATIONS ENGINEER RECEIVED PATIENT FROM THE PREVIOUS SHIFT. DNR DNI STATUS CONFIRMED. BIPAP SETTINGS REVIEWED AND VERIFIED. UNABLE TO FOLLOW SIMPLE COMMANDS AT THIS TIME. AFEBRILE. SINUS RHYTHM ON MONITOR. LEVOPHED AND AMIO GTT RUNNING. ENGLISH DRAINING URINE TO GRAVITY. WILL CONTINUE TO MONITOR AND PROVIDE CARE.
[2017-04-12 08:18] LABS: EOSINOPHILS # (AUTO) 0.2 /CMM (0.0-0.7); EOSINOPHILS % (AUTO) 1.1 % (0.0-6.0); HEMATOCRIT 23 % (39-51); HEMOGLOBIN 7.7 g/dL (13.5-17.5); LYMPHOCYTES # (AUTO) 0.3 /CMM (0.8-4.8); LYMPHOCYTES % (AUTO) 1.6 % (20.0-44.0); MEAN CORPUSCULAR HEMOGLOBIN 33 PG (26.0-33.0); MEAN CORPUSCULAR HGB CONC 33 g/dl (31.0-36.0); MEAN CORPUSCULAR VOLUME 98 fL (80-96); MONOCYTES # (AUTO) 0.4 /CMM (0.1-1.30); NEUTROPHILS # (AUTO) 20.2 /CMM (1.8-8.9); NEUTROPHILS % (AUTO) 95.3 % (43.0-81.0); RDW COEFFICIENT OF VARIATION 23.5 (11.5-15.0); RED BLOOD CELL COUNT(AUTO) 2.34 MIL/uL (4.5-6.0); WHITE BLOOD COUNT (AUTO) 21.2 K/uL (4.3-11.0)
[2017-04-12 08:40] LABS: PLATELET COUNT (AUTO) 40 /CMM (150-450)
[2017-04-12] MEDS: HYDROGEL DRESSING 90 GM TUBE TP SCH (08:49)
[2017-04-12] MEDS: LACTOBACILLUS RHAMNOSUS GG 1 EACH CAP.SPRINK PO SCH ×2 (08:49→16:51)
[2017-04-12] MEDS: CLOTRIMAZOLE 1% 15 GM TUBE TP SCH ×2 (08:52→16:52)
[2017-04-12] MEDS: PANTOPRAZOLE 40 MG VIAL IV SCH ×2 (09:00→16:51)
[2017-04-12] MEDS: MEROPENEM 500 MG in IV NS 0.9% 50 ML IV SCH ×2 (09:00→21:54)
[2017-04-12] MEDS: LINEZOLID RTU BAG 600 MG in PREMIX 1 EA IV SCH (09:00)
[2017-04-12 10:14] LABS: BAND % (MANUAL) 11 % (0.0-5.0); LYMPHOCYTES % (MANUAL) 3 % (16-48); MONOCYTES % (MANUAL) 3 % (0-11.0); NEUTROPHILS % (MANUAL) 83 (42-76)
[2017-04-12] MEDS: IV NS 0.9% 1,000 ML IV PRN (14:38)
[2017-04-12] MEDS: SUCRALFATE 1 G/10 ML UDC GT SCH ×2 (17:13→21:53)
[2017-04-12] MEDS: AMIODARONE 900 MG in IV D5W 482 ML IV PRN (17:31)
--- NOTE | 2017-04-12 18:53 | NUR ---
CERAMIC SAW TENDER PATIENT IS IN BED. RESTING COMFORTABLY. NO ACUTE DISTRESS NOTED. BIPAP SETTINGS REVIEWED AND VERIFIED. WILL CONTINUE TO MONITOR AND PROVIDE CARE.
[2017-04-12] MEDS: VANCOMYCIN 0.75 GM in IV NS 0.9% 250 ML IV SCH (18:58)
--- NOTE | 2017-04-12 19:51 | NUR ---
CONTINUOUS ABSORPTION PROCESS OPERATOR. INITIAL ASSESSMENT. RECEIVED THE PT REST ON THE BED. OPEN EYES. DOES NOT FOLLOW COMMANDS. COUNTY CORONER SHOWINF NSR AT THIS TIME. OXYGEN 5L VIA NASAL CANNULA SAT 98%. IV RT UPPER ARM MID LINE. ,FC PATENT. WILIAM SOFT WRIST RESTRAINT CHECKED AND RELEASED. NO INJURY OR REDNESS NOTED. HOB ELEVATED. TURN AND REPOSITION Q2H. WILL CONTINUE TO MONITOR VITALS.
[2017-04-12] MEDS: MICAFUNGIN SODIUM 100 MG in IV NS 0.9% 100 ML IV SCH (21:54)
[2017-04-13] VITALS (78 sets, daily range): BP systolic 76–169; BP diastolic 30–78
--- NOTE | 2017-04-13 03:49 | NUR ---
SPORTS APPAREL INTERNSHIP. AM CARE, ORAL CARE, BED BATH GIVEN. LINEN CHANGED, REMAINING SAME OXYGEN TOLERATED WELL. SAT 87%. NO ACUTE DISTRESS NOTED. OVERNIGHT ASSOCIATE SHOWING NSR, IV LT UPPER ARM PICC LINE IVF NS 75ML/H,HOB ELEVATED. AMIODARONE 0.5MG/HI,.LEVOPHED 30MCG/MIN, FC PATENT, URINE DRAINING. WILIAM SOFT WRIST RESTRAINT CHECKED AND RELEASED. NO INJURY OR REDNESS NOTED. RT NARE NGT CLAMPED. HOB ELEVATED, TURN AND REPOSITION Q2H. WILL CONTINUE TO MONITOR VITALS.
[2017-04-13] MEDS: IV NS 0.9% 1,000 ML IV PRN ×2 (03:57→21:00)
[2017-04-13 04:42] LABS: EOSINOPHILS # (AUTO) 0.3 /CMM (0.0-0.7); EOSINOPHILS % (AUTO) 1.9 % (0.0-6.0); HEMATOCRIT 23 % (39-51); HEMOGLOBIN 7.9 g/dL (13.5-17.5); LYMPHOCYTES # (AUTO) 0.4 /CMM (0.8-4.8); LYMPHOCYTES % (AUTO) 3.2 % (20.0-44.0); MEAN CORPUSCULAR HEMOGLOBIN 33 PG (26.0-33.0); MEAN CORPUSCULAR HGB CONC 34 g/dl (31.0-36.0); MEAN CORPUSCULAR VOLUME 98 fL (80-96); MONOCYTES # (AUTO) 0.8 /CMM (0.1-1.30); MONOCYTES % (AUTO) 5.6 % (2.0-12.0); NEUTROPHILS # (AUTO) 11.9 /CMM (1.8-8.9); NEUTROPHILS % (AUTO) 89.3 % (43.0-81.0); RED BLOOD CELL COUNT(AUTO) 2.38 MIL/uL (4.5-6.0); WHITE BLOOD COUNT (AUTO) 13.4 K/uL (4.3-11.0)
[2017-04-13 04:52] LABS: PLATELET COUNT (AUTO) 21 /CMM (150-450)
[2017-04-13 04:56] LABS: CALCIUM, SERUM 8.1 mg/dL (8.5-10.1); CARBON DIOXIDE 26 mmol/L (21-32); CHLORIDE 109 mmol/L (98-107); GLUCOSE 89 mg/dL (74-106); MAGNESIUM 1.5 mg/dL (1.8-2.4); PHOSPHORUS 5.5 mg/dL (2.5-4.9); POTASSIUM 2.9 mmol/L (3.5-5.1); SODIUM SERUM 144 mmol/L (136-145); UREA NITROGEN, BLOOD 46 mg/dL (7-18)
[2017-04-13] MEDS: NOREPINEPHRINE 16 MG in IV D5W 500 ML IV PRN ×2 (05:40→17:39)
[2017-04-13 05:47] LABS: BAND % (MANUAL) 20 % (0.0-5.0); EOSINOPHILS % (MANUAL) 2 % (0-4); LYMPHOCYTES % (MANUAL) 8 % (16-48); MONOCYTES % (MANUAL) 1 % (0-11.0); NEUTROPHILS % (MANUAL) 69 (42-76)
[2017-04-13] MEDS: ACETYLCYSTEINE 10% SOLN 400 MG/4 ML VIAL NEB SCH ×2 (07:31→15:30)
[2017-04-13] MEDS: SUCRALFATE 1 G/10 ML UDC GT SCH ×4 (08:13→21:31)
[2017-04-13] MEDS: HYDROGEL DRESSING 90 GM TUBE TP SCH (10:01)
[2017-04-13] MEDS: CLOTRIMAZOLE 1% 15 GM TUBE TP SCH ×2 (10:02→16:31)
[2017-04-13] MEDS: DOCUSATE SODIUM 250 MG CAPSULE PO SCH (10:05)
[2017-04-13] MEDS: MEROPENEM 500 MG in IV NS 0.9% 50 ML IV SCH ×2 (10:06→21:00)
[2017-04-13] MEDS: LACTOBACILLUS RHAMNOSUS GG 1 EACH CAP.SPRINK PO SCH ×2 (10:06→17:38)
[2017-04-13] MEDS: PANTOPRAZOLE 40 MG VIAL IV SCH (10:06)
[2017-04-13] MEDS ORDERED: Magnesium 1GM/D5W 100ML PREMIX 100 ML IV SCH (12:30)
[2017-04-13] MEDS: POTASSIUM CL. PREMIX PERIPHER. 50 ML IV SCH ×5 (12:56→16:31)
[2017-04-13] MEDS: RENAL NOVASOURCE 1,000 ML BOTTLE GT PRN (16:31)
[2017-04-13] MEDS: VANCOMYCIN 0.75 GM in IV NS 0.9% 250 ML IV SCH (18:49)
--- NOTE | 2017-04-13 20:00 | NUR ---
Received patient from [facility],am shift RN.Dx: Respiratory Failure ,Sepsis secondary to UTI.DNR/DNI.Patient resting no apparent distress noted.Not following commands.Noted purposeful movement of both upper and lower extremities.Bilateral soft wrist restraints on for safety and released per protocol.VS stable.SR .With O2 5 NC saturation 95 %.Right NGT feeding in progress.NGT placement verified.FC to gravity.Turned and repositioned.
[2017-04-13] MEDS: AMIODARONE HCL 200 MG TABLET PO SCH (21:01)
[2017-04-13] MEDS: MICAFUNGIN SODIUM 100 MG in IV NS 0.9% 100 ML IV SCH (21:30)
[2017-04-14] VITALS (84 sets, daily range): BP systolic 70–147; BP diastolic 38–93
[2017-04-14] MEDS: ALBUTEROL FS 2.5 MG/0.5 ML VIAL.NEB NEB PRN (00:25)
[2017-04-14] MEDS: ACETYLCYSTEINE 10% SOLN 400 MG/4 ML VIAL NEB SCH ×4 (00:25→23:27)
--- NOTE | 2017-04-14 00:30 | NUR ---
Patient resting vs stable.Desat to 88%.No acute distress noted.Suctioned secretions PRN.O2 changed to BIPAP by RT,BRANT. Rate 18,20/5,FIO2 50%.O2 sat went up to 99%-100%.Levophed gtt infusing at 1 mcg and IVF via SHORTY PICC LINE.Site intact. Turned and repositioned.
--- NOTE | 2017-04-14 04:00 | NUR ---
Patient awake.VS stable.Levophed gtt titrated off.Oral care done.With constipated stool sticking rectally. Disimpaction done to moderate brown stool.Perineal care done.Sacral partial thickness cleansed with NS pat dry and applied Hydrogel covered with mepilex.Bed bath rendered.Complete linens changed.Turned and repositioned.
[2017-04-14 05:11] LABS: CALCIUM, SERUM 8.6 mg/dL (8.5-10.1); CARBON DIOXIDE 25 mmol/L (21-32); CHLORIDE 115 mmol/L (98-107); CREATININE 1.8 mg/dL (0.6-1.3); GLUCOSE 97 mg/dL (74-106); MAGNESIUM 1.7 mg/dL (1.8-2.4); SODIUM SERUM 150 mmol/L (136-145); UREA NITROGEN, BLOOD 45 mg/dL (7-18)
--- NOTE | 2017-04-14 07:35 | NUR ---
POT PUNCHER RECEIVED PATIENT FROM THE PREVIOUS SHIFT. PATIENT IS IN BED. RESTING COMFORTABLY. NO ACUTE DISTRESS NOTED. EVEN AND NON LABORED BREATHING PATTERN. OFF PRESSORS. PATIENT ABLE TO TRACK BUT NOT ABLE TO FOLLOW COMMANDS. WARM BLANKETS APPLIED FOR LOW TEMP. WILL CONTINUE TO MONITOR AND PROVIDE CARE.
[2017-04-14 08:09] LABS: RENIN, PLASMA 14.241 ng/mL/hr (0.167-5.380)
[2017-04-14 09:01] LABS: ABG BASE EXCESS -0.8 mmol/L; ABG OXYGEN SATURATION 94.2 % (92.0-98.5); ABG PCO2 33.4 mmHg (35.0-45.0); ABG PH 7.452 (7.350-7.450); ABG PO2 78.3 mmHg (75.0-100.0); AaDO2 168.5 mmHg; COHb 0.3 % (0.5-1.5); MetHb 0.8 % (0.0-1.5); O2Hb 93.2 % (94.0-97.0); SITE, ABG Right Radial; VENT MODE, BG NASAL CANNULA
--- NOTE | 2017-04-14 09:52 | NUR ---
DIRECTOR OF FINANCIAL PLANNING CLUBHOUSE ATTENDANT MADE AWARE OF PATIENT'S K LEVEL, SODIUM LEVEL 150, AND MARGINAL URINE OUTPUT.
[2017-04-14] MEDS: HYDROGEL DRESSING 90 GM TUBE TP SCH (10:14)
[2017-04-14] MEDS: CLOTRIMAZOLE 1% 15 GM TUBE TP SCH ×2 (10:15→17:41)
[2017-04-14] MEDS: MEROPENEM 500 MG in IV NS 0.9% 50 ML IV SCH ×2 (10:18→20:17)
[2017-04-14] MEDS: SUCRALFATE 1 G/10 ML UDC GT SCH ×4 (10:19→21:44)
[2017-04-14] MEDS: DOCUSATE SODIUM 250 MG CAPSULE PO SCH (10:19)
[2017-04-14] MEDS: LACTOBACILLUS RHAMNOSUS GG 1 EACH CAP.SPRINK PO SCH ×2 (10:20→17:40)
[2017-04-14] MEDS: AMIODARONE HCL 200 MG TABLET PO SCH ×2 (10:20→20:16)
[2017-04-14] MEDS ORDERED: Magnesium 1GM/D5W 100ML PREMIX 100 ML IV SCH (11:42)
[2017-04-14] MEDS: Potassium Chloride 20 MEQ in IV D5W 1,000 ML IV PRN (12:54)
[2017-04-14 14:09] LABS: BASOPHILS % (AUTO) 0.1 % (0.0-2.0); EOSINOPHILS # (AUTO) 0.2 /CMM (0.0-0.7); HEMATOCRIT 27 % (39-51); HEMOGLOBIN 8.5 g/dL (13.5-17.5); LYMPHOCYTES # (AUTO) 0.8 /CMM (0.8-4.8); LYMPHOCYTES % (AUTO) 3.5 % (20.0-44.0); MEAN CORPUSCULAR HEMOGLOBIN 26 PG (26.0-33.0); MEAN CORPUSCULAR HGB CONC 32 g/dl (31.0-36.0); MEAN CORPUSCULAR VOLUME 81 fL (80-96); MONOCYTES # (AUTO) 1.7 /CMM (0.1-1.30); MONOCYTES % (AUTO) 7.5 % (2.0-12.0); NEUTROPHILS # (AUTO) 19.7 /CMM (1.8-8.9); NEUTROPHILS % (AUTO) 87.9 % (43.0-81.0); PLATELET COUNT (AUTO) 241 /CMM (150-450); RDW COEFFICIENT OF VARIATION 19.7 (11.5-15.0); RED BLOOD CELL COUNT(AUTO) 3.32 MIL/uL (4.5-6.0); WHITE BLOOD COUNT (AUTO) 22.4 K/uL (4.3-11.0)
[2017-04-14 16:43] LABS: BAND % (MANUAL) 8 % (0.0-5.0); LYMPHOCYTES % (MANUAL) 2 % (16-48); MONOCYTES % (MANUAL) 4 % (0-11.0); NEUTROPHILS % (MANUAL) 86 (42-76)
[2017-04-14] MEDS: VANCOMYCIN 0.75 GM in IV NS 0.9% 250 ML IV SCH (17:40)
--- NOTE | 2017-04-14 19:17 | NUR ---
AGRICULTURAL LABOR CAMP MANAGER ENDORSED TO THE NEXT SHIFT RN REGARDING RADIOLOGIST REPORT REGARDING POSSIBLE SBO AND NEED FOR A CT SCAN OF THE ABD.
[2017-04-14] MEDS: METOCLOPRAMIDE HCL 10 MG/2 ML VIAL IV SCH (20:00)
--- NOTE | 2017-04-14 20:00 | NUR ---
SHELTER MONITOR - NOTES - RECEIVED PATIENT FROM THE PREVIOUS SHIFT. PATIENT IS IN BED. RESTING COMFORTABLY. NO ACUTE DISTRESS NOTED. EVEN AND NON LABORED BREATHING PATTERN ON 5L NC. PATIENT ABLE TO TRACK BUT NOT ABLE TO FOLLOW COMMANDS. WILL CONTINUE TO MONITOR AND PROVIDE CARE.
[2017-04-14] MEDS: MICAFUNGIN SODIUM 100 MG in IV NS 0.9% 100 ML IV SCH (20:17)
--- NOTE | 2017-04-14 21:00 | NUR ---
APRK RUVALCABA NOTIFIED ABOUT KUB, NEW ORDERS RECEIVED, NO CT RIGHT NOW, WILL FOLLOW UP IN AM.
[2017-04-15] VITALS (28 sets, daily range): BP systolic 91–144; BP diastolic 42–69
[2017-04-15] MEDS: METOCLOPRAMIDE HCL 10 MG/2 ML VIAL IV SCH ×2 (01:52→08:00)
[2017-04-15 05:30] LABS: BASOPHILS % (AUTO) 0.2 % (0.0-2.0); EOSINOPHILS # (AUTO) 0.2 /CMM (0.0-0.7); EOSINOPHILS % (AUTO) 2.1 % (0.0-6.0); HEMATOCRIT 23 % (39-51); HEMOGLOBIN 7.8 g/dL (13.5-17.5); LYMPHOCYTES # (AUTO) 0.4 /CMM (0.8-4.8); LYMPHOCYTES % (AUTO) 3.7 % (20.0-44.0); MEAN CORPUSCULAR HEMOGLOBIN 32 PG (26.0-33.0); MEAN CORPUSCULAR HGB CONC 33 g/dl (31.0-36.0); MEAN CORPUSCULAR VOLUME 97 fL (80-96); MONOCYTES # (AUTO) 0.2 /CMM (0.1-1.30); MONOCYTES % (AUTO) 1.5 % (2.0-12.0); NEUTROPHILS # (AUTO) 10.6 /CMM (1.8-8.9); NEUTROPHILS % (AUTO) 92.5 % (43.0-81.0); RDW COEFFICIENT OF VARIATION 22.3 (11.5-15.0); WHITE BLOOD COUNT (AUTO) 11.4 K/uL (4.3-11.0)
[2017-04-15 05:56] LABS: CALCIUM, SERUM 8.7 mg/dL (8.5-10.1); CREATININE 1.8 mg/dL (0.6-1.3); GLUCOSE 83 mg/dL (74-106); MAGNESIUM 1.9 mg/dL (1.8-2.4); PHOSPHORUS 5.8 mg/dL (2.5-4.9); UREA NITROGEN, BLOOD 47 mg/dL (7-18)
[2017-04-15 06:03] LABS: CARBON DIOXIDE 24 mmol/L (21-32); CHLORIDE 110 mmol/L (98-107); SODIUM SERUM 145 mmol/L (136-145)
[2017-04-15 06:05] LABS: POTASSIUM 2.8 mmol/L (3.5-5.1)
[2017-04-15 06:17] LABS: PLATELET COUNT (AUTO) 24 /CMM (150-450)
[2017-04-15 07:23] LABS: BAND % (MANUAL) 5 % (0.0-5.0); EOSINOPHILS % (MANUAL) 1 % (0-4); LYMPHOCYTES % (MANUAL) 4 % (16-48); NEUTROPHILS % (MANUAL) 90 (42-76)
--- NOTE | 2017-04-15 07:30 | NUR ---
STRUCTURES ASSEMBLER RECEIVED PATIENT FROM THE PREVIOUS SHIFT. PATIENT IS IN BED. RESTING COMFORTABLY. NO ACUTE DISTRESS NOTED NASOTRACHEAL SUCTION PROVIDED FOR CLEARANCE. SINUS RHYTHM ON MONITOR. NO ACUTE DISTRESS. TEMP 96.8. WARM BLANKETS APPLIED. ENGLISH DRAINING URINE TO GRAVITY. FAMILY AT BEDSIDE. RESTRAINTS ARE ON FOR SAFETY. WILL CONTINUE TO MONITOR AND PROVIDE CARE.
[2017-04-15] MEDS: ACETYLCYSTEINE 10% SOLN 400 MG/4 ML VIAL NEB SCH ×3 (07:58→23:30)
[2017-04-15] MEDS: ALBUTEROL FS 2.5 MG/0.5 ML VIAL.NEB NEB PRN (07:59)
[2017-04-15] MEDS: IPRATROPIUM NEB FS 0.5 MG/2.5 ML AMPUL.NEB NEB PRN (07:59)
[2017-04-15] MEDS: HYDROGEL DRESSING 90 GM TUBE TP SCH (08:34)
[2017-04-15] MEDS: CLOTRIMAZOLE 1% 15 GM TUBE TP SCH ×2 (08:55→17:22)
[2017-04-15] MEDS: POTASSIUM CL. PREMIX PERIPHER. 50 ML IV SCH ×6 (09:02→14:54)
[2017-04-15] MEDS: SUCRALFATE 1 G/10 ML UDC GT SCH ×4 (09:02→21:32)
[2017-04-15] MEDS: MEROPENEM 500 MG in IV NS 0.9% 50 ML IV SCH ×2 (09:02→22:30)
[2017-04-15] MEDS: DOCUSATE SODIUM 250 MG CAPSULE PO SCH (09:03)
[2017-04-15] MEDS: LACTOBACILLUS RHAMNOSUS GG 1 EACH CAP.SPRINK PO SCH ×2 (09:03→17:20)
[2017-04-15] MEDS: AMIODARONE HCL 200 MG TABLET PO SCH ×2 (09:03→21:33)
[2017-04-15] MEDS: Potassium Chloride 20 MEQ in IV D5W 1,000 ML IV PRN (09:06)
--- NOTE | 2017-04-15 12:54 | NUR ---
[facility] TRANSFERRED THE PATIENT TO [facility] LEVEL OF CARE ON STABLE CONDITIONS. ACLS PROTOCOL.
--- NOTE | 2017-04-15 12:55 | NUR ---
RN NOTES PATIENT TRANSFEREE FROM ICU 71 Y/OLD ON DX OF RESPIRATORY DISTRESS ON TELE. TELE MONITOR ON SR-72. PATIENT CONFUSED, ON O2 -5.OL NC, NO ACUTE RESPIRATORY DISTRESS, V/S TAKEN BP- 114/54, P-75, R-24. O2-5.0L NC, T-97.4. PATIENT HAS A NG TUBE ON LOW SUCTION, NPO. IV PICC LINE ON RIGHT UPPER ARM INFUSING D5W K20 MEQ AT 75 ML/HR, EDEMA BILATERAL UPPER AND LOWER EXTREMITIES. F/C DRAIN YELLOW OUTPUT. PATIENT DNR/DNI. PATIENT HAS A WOUND STAGE 3 SACRAL AREA WITH DRESSING ON, KEEP HOB ELEVATED, PATIENT ASPIRATION PRECAUTION, [facility] MATRASS. ASSIST TURN AND REPOSTION Q 2 HR. CONTINUED MONITORING.
[2017-04-15] MEDS ORDERED: METOCLOPRAMIDE HCL 10 MG/2 ML VIAL IV SCH (15:00)
[2017-04-15] MEDS: METOCLOPRAMIDE HCL 10 MG/10 ML UDC GT SCH ×2 (17:20→21:32)
--- NOTE | 2017-04-15 17:23 | NUR ---
RN NOTES SCHEDULED MEDICATION ADMINISTERED VIA NG TUBE HOLD LOW SUCTIONING AT THIS TIME. PLACEMENT AND RESIDUAL CHECKED, V/S STABLE NO ACUTE RESPIRATORY DISTRESS, ASSIST TURN AND REPOSTION Q 2 HR, F/C DRAIN YELLOW OUTPUT, HOB KEEP ELEVATED, CONTINUED MONITORING.
[2017-04-15] MEDS ORDERED: VANCOMYCIN 0.75 GM in IV NS 0.9% 250 ML IV SCH (18:00)
--- NOTE | 2017-04-15 18:30 | NUR ---
RN NOTES PATIENT OPERATIONS ARCHITECT AT THIS TIME FOR STAT ABDOMINAL CT.
--- NOTE | 2017-04-15 18:50 | NUR ---
RN NOTES PATIENT BACK FROM ABD. CT AT THIS TIME, NO ACUTE DISTRESS, CONTINUED MONITORING.
--- NOTE | 2017-04-15 19:00 | NUR ---
RN NOTES PATIENT STABLE AT THIS TIME , NO ACUTE RESPIRATORY DISTRESS, CALL LIGHT WITHIN TO REACH. ENDORSED ONCOMING NURSE FOR IZAIAH.
--- NOTE | 2017-04-15 19:30 | NUR ---
TELE/RN RECEIVE PATIENT AWAKE, NON VERBAL, APPEAR COMFORTABLE, NO DISTRESS NOTED, NGT TO LOW INTERMITTENT SUCTION, WILL MONITOR.
[2017-04-15] MEDS: MICAFUNGIN SODIUM 100 MG in IV NS 0.9% 100 ML IV SCH (23:24)
[2017-04-16] VITALS: BP 137/69
--- NOTE | 2017-04-16 01:45 | NUR ---
TELE/RN PATIENT IS SLEEPING AT THIS TIME, AROUSES EASILY, NO DISTRESS NOTED, WILL CONTINUE TO MONITOR.
[2017-04-16] MEDS: Potassium Chloride 20 MEQ in IV D5W 1,000 ML IV PRN ×2 (03:26→17:24)
[2017-04-16 04:00] VITALS: BP 134/60
[2017-04-16] MEDS: METOCLOPRAMIDE HCL 10 MG/10 ML UDC GT SCH ×4 (04:05→22:16)
--- NOTE | 2017-04-16 04:11 | NUR ---
TELE/RN NGT POSITIVE PLACEMENT WAS NOTED, REGLAN 10 MG GT WAS GIVEN ORDERED. SUCTION WAS TURNED OFF.
--- NOTE | 2017-04-16 06:51 | NUR ---
TELE/RN PATIENT IS AWAKE, COMFORTABLE, NO DISTRESS NOTED, NGT TO LOW INTERMITTENT SUCTION, ALL NEEDS ATTENDED AT THIS TIME. WILL CONTINUE TO MONITOR.
[2017-04-16 07:26] LABS: CALCIUM, SERUM 9.1 mg/dL (8.5-10.1); CARBON DIOXIDE 24 mmol/L (21-32); CHLORIDE 112 mmol/L (98-107); GLUCOSE 83 mg/dL (74-106); POTASSIUM 3.6 mmol/L (3.5-5.1); SODIUM SERUM 144 mmol/L (136-145); UREA NITROGEN, BLOOD 45 mg/dL (7-18); VANCOMYCIN,TROUGH 21 ug/ml (12-20)
--- NOTE | 2017-04-16 07:30 | NUR ---
MS/RN Patient received Patient received from warehouse worker 2nd shift. NGT to LIS, minimal drainage noted in canister, IV fluids infusing, no signs of any infiltration seen. Bed in low setting, brakes locked, side rails X3 in upright position. Will continue to monitor and ensure safety.
[2017-04-16] MEDS: ACETYLCYSTEINE 10% SOLN 400 MG/4 ML VIAL NEB SCH ×3 (07:35→23:30)
[2017-04-16 08:00] VITALS: BP 137/71
[2017-04-16 08:26] VITALS: BP 137/71
[2017-04-16] MEDS: DOCUSATE SODIUM 250 MG CAPSULE PO SCH (08:29)
[2017-04-16] MEDS: SUCRALFATE 1 G/10 ML UDC GT SCH ×4 (08:30→22:16)
[2017-04-16] MEDS: AMIODARONE HCL 200 MG TABLET PO SCH ×2 (08:30→22:12)
[2017-04-16] MEDS: LACTOBACILLUS RHAMNOSUS GG 1 EACH CAP.SPRINK PO SCH ×2 (08:30→17:19)
[2017-04-16] MEDS: CLOTRIMAZOLE 1% 15 GM TUBE TP SCH ×2 (08:30→17:19)
[2017-04-16] MEDS: HYDROGEL DRESSING 90 GM TUBE TP SCH (08:33)
--- NOTE | 2017-04-16 09:00 | NUR ---
MS/RN Medications Morning medications administered.
[2017-04-16] MEDS: MEROPENEM 500 MG in IV NS 0.9% 50 ML IV SCH ×2 (09:26→22:10)
--- NOTE | 2017-04-16 09:30 | NUR ---
MS/RN Labs Morning labs reviewed: -Na 144
--- NOTE | 2017-04-16 09:48 | NUR ---
MS/ELLE Yoo level this morning 21, dose to be held.
[2017-04-16 11:03] LABS: BASOPHILS % (AUTO) 0.1 % (0.0-2.0); EOSINOPHILS # (AUTO) 0.1 /CMM (0.0-0.7); EOSINOPHILS % (AUTO) 1.5 % (0.0-6.0); HEMATOCRIT 24 % (39-51); HEMOGLOBIN 7.7 g/dL (13.5-17.5); LYMPHOCYTES # (AUTO) 0.5 /CMM (0.8-4.8); LYMPHOCYTES % (AUTO) 5.9 % (20.0-44.0); MEAN CORPUSCULAR HEMOGLOBIN 32 PG (26.0-33.0); MEAN CORPUSCULAR HGB CONC 33 g/dl (31.0-36.0); MEAN CORPUSCULAR VOLUME 99 fL (80-96); MONOCYTES # (AUTO) 0.4 /CMM (0.1-1.30); MONOCYTES % (AUTO) 4.2 % (2.0-12.0); NEUTROPHILS # (AUTO) 8.1 /CMM (1.8-8.9); NEUTROPHILS % (AUTO) 88.3 % (43.0-81.0); PLATELET COUNT (AUTO) 62 /CMM (150-450); RDW COEFFICIENT OF VARIATION 22.7 (11.5-15.0); RED BLOOD CELL COUNT(AUTO) 2.39 MIL/uL (4.5-6.0); WHITE BLOOD COUNT (AUTO) 9.2 K/uL (4.3-11.0)
[2017-04-16 13:23] LABS: EOSINOPHILS % (MANUAL) 4 % (0-4); LYMPHOCYTES % (MANUAL) 5 % (16-48); MONOCYTES % (MANUAL) 9 % (0-11.0); NEUTROPHILS % (MANUAL) 82 (42-76)
--- NOTE | 2017-04-16 14:45 | NUR ---
MS/RN Telephone orders Telephone order received from Dr Luque to resume previous feeding.
--- NOTE | 2017-04-16 15:22 | NUR ---
MS/RN S/B GI Seen by GI - NGT suction to be discontinued. Swallow evaluation ordered prior to starting oral diet as patient was previously on no added salt puree diet at nursing facility.
--- NOTE | 2017-04-16 16:31 | NUR ---
MS/RN Consent Telephone consent obtained from son for EGD in morning.
--- NOTE | 2017-04-16 18:41 | NUR ---
MS/RN End note Patient remains in stable condition, all needs attended. Awaiting feeding pump from central supply to restart feeding, but needs to be NPO from midnight for EGD. All needs attended, kept clean and dry, will endorse to night patrol inspector.
--- NOTE | 2017-04-16 19:25 | NUR ---
RN OPENING TELE NOTES PT AWAKE AND RESTING IN BED. PT NONVERBAL. NO APPARENT S/S OF PAIN, DISTRESS OR SOB AT THIS TIME. PT HAS A NGT, INTACT. PT HAS A ENGLISH CATHETER INTACT AND DRAINING WELL. PT IS TELE MONITORED AT SINUS RHYTHM WITH PAC. PT HAS A SHORTY PICC LINE, INTACT AND PATENT. PT HAS A VANCO THROUGH TOMORROW MORNING. PT SCHEDULED FOR EGD TOMORROW, CONSENT IN CHART. LET SON KNOW OF EGD SCHEDULED. SAFETY PRECAUTIONS IN PLACE, BED IN LOWEST, LOCKED POSITION, X3 SIDERAILS UP. CALL LIGHT WITHIN REACH.
[2017-04-16 19:40] VITALS: BP 132/61
[2017-04-16 20:00] VITALS: BP 145/75
[2017-04-16] MEDS: MICAFUNGIN SODIUM 100 MG in IV NS 0.9% 100 ML IV SCH (23:13)
[2017-04-17] VITALS (7 sets, daily range): BP systolic 113–132; BP diastolic 51–64
[2017-04-17] MEDS: METOCLOPRAMIDE HCL 10 MG/10 ML UDC GT SCH ×4 (03:08→21:19)
[2017-04-17 06:31] LABS: CARBON DIOXIDE 25 mmol/L (21-32); CHLORIDE 112 mmol/L (98-107); CREATININE 1.9 mg/dL (0.6-1.3); GLUCOSE 81 mg/dL (74-106); POTASSIUM 3.8 mmol/L (3.5-5.1); SODIUM SERUM 144 mmol/L (136-145); UREA NITROGEN, BLOOD 42 mg/dL (7-18)
--- NOTE | 2017-04-17 06:59 | NUR ---
RN CLOSING TELE NOTES PT AWAKE AND RESTING IN BED. PT NONVERBAL. NO APPARENT S/S OF PAIN, DISTRESS OR SOB. PT HAS A NGT, INTACT. PT HAS A ENGLISH CATHETER INTACT AND DRAINING WELL. PT IS TELE MONITORED AT SINUS RHYTHM WITH PAC. PT HAS A SHORTY PICC LINE, INTACT AND PATENT. PT HAS A VANCO THROUGH TODAY. PT SCHEDULED FOR EGD TODAY, CONSENT IN CHART. NEED TO LET SON KNOW OF EGD SCHEDULED. SAFETY PRECAUTIONS IN PLACE, BED IN LOWEST, LOCKED POSITION, X3 SIDERAILS UP. CALL LIGHT WITHIN REACH. WILL ENDORSE TO DAY SHIFT NURSE FOR CONTINUITY OF CARE.
[2017-04-17] MEDS: SUCRALFATE 1 G/10 ML UDC GT SCH ×5 (07:30→21:19)
[2017-04-17] MEDS: VANCOMYCIN 0.75 GM in IV D5W 250 ML IV SCH (08:06)
[2017-04-17] MEDS: ACETYLCYSTEINE 10% SOLN 400 MG/4 ML VIAL NEB SCH ×3 (08:13→23:30)
[2017-04-17] MEDS: AMIODARONE HCL 200 MG TABLET PO SCH ×2 (09:00→21:19)
[2017-04-17] MEDS: MEROPENEM 500 MG in IV NS 0.9% 50 ML IV SCH (10:21)
[2017-04-17] MEDS: RENAL NOVASOURCE 1,000 ML BOTTLE GT PRN (10:36)
[2017-04-17] MEDS: HYDROGEL DRESSING 90 GM TUBE TP SCH (10:38)
[2017-04-17] MEDS: DOCUSATE SODIUM 250 MG CAPSULE PO SCH (10:38)
[2017-04-17] MEDS: CLOTRIMAZOLE 1% 15 GM TUBE TP SCH ×2 (10:38→16:52)
[2017-04-17] MEDS: LACTOBACILLUS RHAMNOSUS GG 1 EACH CAP.SPRINK PO SCH ×2 (10:38→16:51)
[2017-04-17] MEDS: Potassium Chloride 20 MEQ in IV D5W 1,000 ML IV PRN (14:09)
[2017-04-17] MEDS: PANTOPRAZOLE 40 MG VIAL IV SCH (17:52)
--- NOTE | 2017-04-17 18:26 | NUR ---
SOFTWARE COMPUTER SPECIALIST CLOSING NOTES. PT REMAINS [id number], EYES OPEN AND PREDOMINANTLY NON VERBAL. TELE SR79. PT WITH BI LAT SWR, NEURO INTACT. PT WITH COOL AEROSOL VIA NC AND SAO2 WNL. LUNGS WITH SIGNIFICANT CONGESTION THROUGHOUT SHIFT AND MD AWARE, PT WITHOUT S/S OF RESP DISTRESS. PT UNABLE TO INDICATE PAIN BUT IS WITHOUT S/S OF DISTRESS OR DISCOMFORT. PT WITH G TUBE RUNNING NOVA SOURCE 20ML/PH, ELECTRIC WIRER REC TO ADVANCE DIET TO 40ML/ML, WILL ENDORSE TO NIGHT NURSE. PT L UA PICCLINE INTACT AND OPERATIONAL. PT WOUND CARE PER ORDER. PT BED IN LOWEST LOCKED POSITION WITH [id number]. ALL DAY NURSE DUTIES ATTENDED TO. WILL ENDORSE TO NIGHT NURSE AT BEDSIDE FOR IZAIAH.
--- NOTE | 2017-04-17 19:45 | NUR ---
RN NOTES RECEIVED PT AWAKE, NON-VERBAL, SR ON TELE MONITOR HR-77, NG-TUBE IN PLACE, NOVASOURCE RUNNING @ 20ML/HR, LEFT UPPER PICC LINE IN PLACE, PT HAS BILATERAL SOFT WRIST RESTRAINTS, CIRCULATION ON BOTH UPPER EXTREMITIES ARE GOOD, NO PAIN NOTED, NO SOB, F/S DRAINING CLEAR YELLOW URINE, SIDERAILSUPX2, CONTINUE TO MONITOR
[2017-04-17 20:14] LABS: OCCULT BLOOD STOOL POSITIVE (NEGATIVE)
[2017-04-18] MEDS ORDERED: ACETYLCYSTEINE 20% ORAL SOLN 6,000 MG/30 ML VIAL ONE (00:55)
[2017-04-18] MEDS: ACETYLCYSTEINE 10% SOLN 400 MG/4 ML VIAL NEB SCH ×4 (01:18→23:30)
[2017-04-18] MEDS: ALBUTEROL FS 2.5 MG/0.5 ML VIAL.NEB NEB PRN ×3 (01:18→15:45)
[2017-04-18] MEDS: IPRATROPIUM NEB FS 0.5 MG/2.5 ML AMPUL.NEB NEB PRN ×3 (01:18→15:46)
[2017-04-18] MEDS: METOCLOPRAMIDE HCL 10 MG/10 ML UDC GT SCH ×4 (04:20→21:11)
--- NOTE | 2017-04-18 06:36 | NUR ---
RN NOTES AWAKE, MORNING CARE RENDERED, NG-TUBE IN PLACE, PICC LINE IN PLACE, SIDERAILSUPX2, PT NEEDS ATTENDED
[2017-04-18 06:45] LABS: BASOPHILS % (AUTO) 0.3 % (0.0-2.0); EOSINOPHILS # (AUTO) 0.3 /CMM (0.0-0.7); EOSINOPHILS % (AUTO) 2.9 % (0.0-6.0); HEMATOCRIT 22 % (39-51); HEMOGLOBIN 7.3 g/dL (13.5-17.5); LYMPHOCYTES # (AUTO) 0.6 /CMM (0.8-4.8); LYMPHOCYTES % (AUTO) 6.3 % (20.0-44.0); MEAN CORPUSCULAR HEMOGLOBIN 33 PG (26.0-33.0); MEAN CORPUSCULAR HGB CONC 33 g/dl (31.0-36.0); MEAN CORPUSCULAR VOLUME 98 fL (80-96); MONOCYTES # (AUTO) 0.3 /CMM (0.1-1.30); MONOCYTES % (AUTO) 3.4 % (2.0-12.0); NEUTROPHILS # (AUTO) 7.7 /CMM (1.8-8.9); NEUTROPHILS % (AUTO) 87.1 % (43.0-81.0); PLATELET COUNT (AUTO) 112 /CMM (150-450); RDW COEFFICIENT OF VARIATION 21.3 (11.5-15.0); RED BLOOD CELL COUNT(AUTO) 2.24 MIL/uL (4.5-6.0); WHITE BLOOD COUNT (AUTO) 8.8 K/uL (4.3-11.0)
[2017-04-18 07:03] LABS: CALCIUM, SERUM 9.2 mg/dL (8.5-10.1); CARBON DIOXIDE 25 mmol/L (21-32); CHLORIDE 113 mmol/L (98-107); CREATININE 1.7 mg/dL (0.6-1.3); GLUCOSE 94 mg/dL (74-106); MAGNESIUM 1.8 mg/dL (1.8-2.4); PHOSPHORUS 5.5 mg/dL (2.5-4.9); POTASSIUM 3.7 mmol/L (3.5-5.1); SODIUM SERUM 147 mmol/L (136-145); UREA NITROGEN, BLOOD 37 mg/dL (7-18)
[2017-04-18 08:00] VITALS: BP 119/70
--- NOTE | 2017-04-18 08:38 | NUR ---
MS ALMEIDA AM NOTE: PATIENT RECEIVED ASLEEP. PATIENT WITH NGT AND ENGLSIH CATHETER. RESPIRATIONS 02 4L. BED IN LOW SETTING. BRAKES LOCKED AND IN UPRIGHT POSITION. MONITOR FOR SAFETY.
--- NOTE | 2017-04-18 09:00 | NUR ---
PT ON NGT FEEDING OF NOVASOURCE AT 20 ML/HR TOLERATED WELL WITH NO RESIDUALS-INCREASED TO 30 ML/HR WITH HOB ELEVATED.THE GOAL IS 40 ML/HR.WILL MONITOR PT'S TOLERANCE
[2017-04-18] MEDS: LACTOBACILLUS RHAMNOSUS GG 1 EACH CAP.SPRINK PO SCH ×2 (09:15→16:30)
[2017-04-18] MEDS: DOCUSATE SODIUM 250 MG CAPSULE PO SCH (09:15)
[2017-04-18] MEDS: AMIODARONE HCL 200 MG TABLET PO SCH ×2 (09:15→21:11)
[2017-04-18] MEDS: SUCRALFATE 1 G/10 ML UDC GT SCH ×4 (09:15→21:11)
[2017-04-18] MEDS: HYDROGEL DRESSING 90 GM TUBE TP SCH (09:17)
[2017-04-18] MEDS: Z GUARD REMEDY 2 OZ OINT TP PRN (09:17)
[2017-04-18] MEDS: CLOTRIMAZOLE 1% 15 GM TUBE TP SCH ×2 (09:18→16:30)
--- NOTE | 2017-04-18 09:32 | NUR ---
ELEL NOTE: SPEECH THERAPIST EVALUATION WAS COMPLETED. PATIENT FAILED, SWALLOWING WAS NOT TOLERATED. Addendum: 04/18/17 at 0934 by LALA LE RN ALSO, MORNING MEDS COMPLETED.
[2017-04-18 16:00] VITALS: BP 114/65
[2017-04-18] MEDS: PANTOPRAZOLE 40 MG VIAL IV SCH (16:30)
[2017-04-18] MEDS: VANCOMYCIN 0.75 GM in IV D5W 250 ML IV SCH (18:12)
--- NOTE | 2017-04-18 18:54 | NUR ---
RN NOTE: PATIENT AWAKE IN BED. PATIENT IS NON VERBAL. NO ACUTE DISTRESS. NO SOB, RESPIRATIONS EVEN AND UNLABORED. NO PAIN EXHIBITED. NG TUBE, IV TUBING INTACT. BED IN LOCKED POSITION. BED RAILS 2X UP, LOWEST, AND LOCKED FOR SAFETY. CALL LIGHT IN REACH.
--- NOTE | 2017-04-18 19:40 | NUR ---
MS RN OPENING NOTES RECEIVED PT IN BED AWAKE, ALERT, ON O2 VIA N/C 4L/MIN, RESPIRATIONS EVEN, UNLABORED, NO APPARENT DISTRESS NOTED. NGT IN PLACE, TOLERATE NOVASOURSE WELL, HOB ELEVATED. NO S/SX OF PAIN OR DISCOMFORT NOTED AT THIS TIME F/C IN PLACE DRAINING YELLOW COLOR URINE. IV SITE SHORTY PICC LINE INTACT, PATENT.CALL LIGHT WITHIN REACH, BED LOCKED IN LOWEST POSITION. KEPT CLEAN AND COMFORTABLE. ATTENDED ALL NEEDS. WILL CONTINUE TO MONITOR ACCORDINGLY.
[2017-04-18 20:00] VITALS: BP 123/61
[2017-04-18 22:00] VITALS: BP 128/80
[2017-04-19] MEDS: METOCLOPRAMIDE HCL 10 MG/10 ML UDC GT SCH ×3 (04:28→16:00)
[2017-04-19] MEDS: RENAL NOVASOURCE 1,000 ML BOTTLE GT PRN (06:19)
[2017-04-19] MEDS: SUCRALFATE 1 G/10 ML UDC GT SCH ×3 (06:35→16:48)
[2017-04-19 07:08] LABS: CALCIUM, SERUM 9.8 mg/dL (8.5-10.1); CARBON DIOXIDE 28 mmol/L (21-32); CHLORIDE 115 mmol/L (98-107); CREATININE 1.6 mg/dL (0.6-1.3); GLUCOSE 100 mg/dL (74-106); POTASSIUM 3.4 mmol/L (3.5-5.1); SODIUM SERUM 147 mmol/L (136-145); UREA NITROGEN, BLOOD 31 mg/dL (7-18)
--- NOTE | 2017-04-19 07:16 | NUR ---
MS RN CLOSING NOTES PT IN BED AWAKE, RESTING COMFORTABLY, NO S/SX OF PAIN OR DISCOMFORT NOTED. F/C IN PLACE, DRAINING YELLOW COLOR URINE. IV SITE INTACT. KEPT CLEAN AND COMFORTABLE. ATTENDED ALL NEEDS. WILL CONTINUE TO MONITOR ACCORDINGLY.
[2017-04-19] MEDS: ACETYLCYSTEINE 10% SOLN 400 MG/4 ML VIAL NEB SCH ×3 (07:35→23:30)
[2017-04-19 08:00] VITALS: BP 100/55
[2017-04-19] MEDS ORDERED: PHARMACY TO CHANGE PO MEDS TO GT/NG XX PRN (08:30)
[2017-04-19] MEDS ORDERED: ZOLPIDEM TARTRATE 5 MG TABLET GT PRN (08:34)
[2017-04-19] MEDS ORDERED: MAG HYDROX/AL HYDROX/SIMETH 30 ML UDC GT PRN (08:35)
[2017-04-19] MEDS ORDERED: MAGNESIUM HYDROXIDE 30 ML UDC GT PRN (08:36)
[2017-04-19] MEDS ORDERED: HYDROCODONE/APAP 5/325MG 1 EACH TABLET GT PRN (08:36)
--- NOTE | 2017-04-19 08:57 | NUR ---
MS RN NOTES RECEIVED REPORT FROM AM NURSE. PATIENT RECEIVED RESTING INSIDE ROOM, SLEEPING BUT AROUSABLE THROUGH VERBAL AND TACTILE STIMULI. BREATHING EVEN AND UNLABORED. NO SOB OR ACUTE DISTRESS NOTED. BILATERAL SOFT WRIST RESTRAINTS IN PLACE. NO CHANGES IN LOC NOTED AT THIS TIME. DENIES ANY PAIN OR DISCOMFORT. WILL CONTINUE TO MONITOR
[2017-04-19] MEDS ORDERED: ACETAMINOPHEN 650 MG/20.3 ML UDC GT PRN (09:00)
[2017-04-19] MEDS: DOCUSATE SODIUM LIQ 100 MG/10 ML UDC GT SCH (09:49)
[2017-04-19] MEDS: AMIODARONE HCL 200 MG TABLET GT SCH (09:50)
[2017-04-19] MEDS: LACTOBACILLUS RHAMNOSUS GG 1 EACH CAP.SPRINK GT SCH ×2 (09:50→16:48)
[2017-04-19] MEDS: CLOTRIMAZOLE 1% 15 GM TUBE TP SCH ×2 (09:51→17:12)
[2017-04-19] MEDS: HYDROGEL DRESSING 90 GM TUBE TP SCH (09:52)
[2017-04-19] MEDS ORDERED: POTASSIUM CHLORIDE 20 MEQ POWDER PACKET GT SCH (10:30)
--- NOTE | 2017-04-19 12:15 | NUR ---
MS RN NOTES PATIENT SEEN AND EXAMINED BY EDAN BLAKELY NP. ALSO SPOKE WITH SON, HAMZAH AT BEDSIDE. PLAN OF CARE DISCUSSED REGARDING PEG TUBE PLACEMENT. VERIFIED INFORMED CONSENT OBTAINED BY MD FROM SON HAMZAH. TO BE RELAYED TO GI FOR PLACEMENT. WILL CONTINUE TO MONITOR
[2017-04-19 16:00] VITALS: BP 131/62
--- NOTE | 2017-04-19 16:49 | NUR ---
MS RN NOTES NGT PULLED OUT. PATIENT BREATHING EVEN AND UNLABORED. NO SOB OR ACUTE DISTRESS NOTED. KAMRAN CRUZ NP PRESENT AT FLOOR TO SEE PATIENT. GIVEN OK TO RE-INSERT NGT AND X-RAY FOR PLACEMENT. ORDER NOTED AND CARRIED OUT. MEDICATIONS HELD 2 NO NGT. WILL CONTINUE TO MONITOR
[2017-04-19] MEDS: PANTOPRAZOLE 40 MG VIAL IV SCH (17:12)
--- NOTE | 2017-04-19 19:30 | NUR ---
MS RN NOTES PATIENT RESTING INSIDE ROOM, BREATHING EVEN AND UNLABORED. NO CHANGES IN LOC NOTED AT THIS TIME. NGT INSERTED ON LEFT NOSTRIL, X-RAY TO BE DONE FOR PLACEMENT. PATIENT BREATHING EVEN AND UNLABORED. NO CHANGES IN LOC NOTED AT THIS TIME. NO SOB OR ACUTE DISTRESS NOTED. PATIENT REMAINS AFEBRILE, SKIN DRY AND WARM TO TOUCH. IV SITE ON LEFT UPPER ARM PATENT AND INTACT. ENGLISH CATHETER IN PLACE AND DRAINING WELL WITH YELLOW COLORED OUTPUT ON DRAINAGE BAG. ENDORSED TO INCOMING SHIFT. BED LOCKED AND IN LOW POSITION, BILATERAL UPPER SIDE RAILS UP AND LOCKED. BILATERAL SOFT WRIST RESTRAINTS IN PLACE. CALL LIGHT WITHIN EASY REACH.
--- NOTE | 2017-04-19 19:50 | NUR ---
MS/RN NOTES RECEIVED PT. LYING IN BED. PT. IS AWAKE AND NON-VERBAL. BREATHING EVEN AND UNLABORED ON 4LPM O2 VIA NC. NO SOB, RESPIRATORY DISTRESS OR S/S OF PAIN NOTED. PT. WITH LEFT UPPER ARM PICC PRESENT, PATENT AND INTACT. PT. WITH ENGLISH CATHETER PRESENT, PATENT AND INTACT DRAINING YELLOW URINE. PT. WITH BILATERAL SOFT WRIST RESTRAINTS PRESENT AND INTACT. CIRCULATION CHECK DONE. PER DAYSHIFT NURSE PT. RECENTLY REMOVED NG TUBE, MARINE ENGINE MECHANIC KAMRAN AWARE. DAYSHIFT NURSE RE-INSERTED NG TUBE. CHEST XRAY TAKEN TO CONFIRM PLACEMENT. BED LOCKED AND IN LOWEST POSITION, SIDE RAILS UP X3, BED ALARM ON, WILL CONTINUE TO MONITOR.
[2017-04-19 20:00] VITALS: BP 122/67
--- NOTE | 2017-04-19 20:15 | NUR ---
MS/RN NOTES PT. PULLED OUT NG TUBE. PLACED NEW NG TUBE TO LEFT NARE. CALLED RADIOLOGY FOR CHEST XRAY TO CONFIRM PLACEMENT. WILL CONTINUE TO MONITOR.
--- NOTE | 2017-04-19 20:21 | NUR ---
MS/RN NOTES RADIOLOGY AT BEDSIDE FOR CHEST XRAY.
--- NOTE | 2017-04-19 21:45 | NUR ---
MS/RN NOTES CALLED RADIOLOGY TO FOLLOW UP WITH RESULTS OF STAT CHEST XRAY. RADIOLOGIST STATED HE IS WAITING FOR THE RESULTS TO BE READ AND WILL CALL TO FOLLOW UP. STILL AWAITING RESULTS TO CONFIRM PLACEMENT. WILL CONTINUE TO MONITOR.
--- NOTE | 2017-04-19 22:00 | NUR ---
MS/RN NOTES UNABLE TO ADMINISTER TO PT. 2100 SCHEDULED MEDICATION ON TIME DUE TO PT. PREVIOUSLY REMOVING NG TUBE. STILL AWAITING XRAY CONFIRMATION OF NG TUBE PLACEMENT. WILL ADMINISTER MEDICATIONS TO PT. ORDERED ONCE PLACEMENT IS CONFIRMED. WILL CONTINUE TO MONITOR.
[2017-04-19 23:12] VITALS: BP 125/77
[2017-04-20] MEDS: AMIODARONE HCL 200 MG TABLET GT SCH ×3 (00:07→21:26)
[2017-04-20] MEDS: METOCLOPRAMIDE HCL 10 MG/10 ML UDC GT SCH ×5 (00:08→22:56)
[2017-04-20] MEDS: SUCRALFATE 1 G/10 ML UDC GT SCH ×6 (00:08→21:27)
[2017-04-20] MEDS: RENAL NOVASOURCE 1,000 ML BOTTLE GT PRN (05:50)
--- NOTE | 2017-04-20 06:25 | NUR ---
MS/RN NOTES PT. IS LYING IN BED RESTING. BREATHING EVEN AND UNLABORED ON 4LPM O2 VIA NC. NO SOB, RESPIRATORY DISTRESS OR S/S OF PAIN NOTED. PT. WITH NG TUBE PRESENT, PATENT AND INTACT ADMINISTERING TO T. NOVASOURCE @ 20ML/HR. PT. WITH LEFT UPPER ARM PICC PRESENT, PATENT AND INTACT. PT. WITH ENGLISH CATHETER PRESENT, PATENT AND INTACT. PT. WITH 1:1 SITTER PRESENT AT BEDSIDE. ALL PT. NEEDS MET. PT. OFFLOADED, TURNED AND REPOSITIONED Q2H AND NEEDED. BED LOCKED AND IN LOWEST POSITION, SIDE RAILS UP X3, BED ALARM ON, WILL ENDORSE TO DAYSWIFT NURSE FOR CONTINUITY OF CARE.
--- NOTE | 2017-04-20 06:30 | NUR ---
MS/RN NOTES PT. BED SCALE NOT WORKING. WILL ENDORSE TO DAYSHIFT NURSE PT. DAILY WEIGHT.
--- NOTE | 2017-04-20 07:00 | NUR ---
RN NOTES RECEIVED PATIENT IN BED AWAKE, NON VERBAL. NO ACUTE DISTRESS NOTED. NO SOB NOTED. BREATHING UNLABORED. IV ACCESS PATENT AND INTACT, NO REDNESS OR SWELLING NOTED. NGT IN PLACE. ENGLISH CATHETER INTACT, DRAINING WELL. NO SEDIMENTS NOTED. HOB ELEVATED. SAFETY MEASURES IN PLACE. CALL LIGHT WITHIN REACH. SITTER AT BEDSIDE. WILL CONTINUE TO MONITOR ACCORDINGLY.
[2017-04-20 07:19] LABS: BASOPHILS % (AUTO) 0.7 % (0.0-2.0); EOSINOPHILS # (AUTO) 0.3 /CMM (0.0-0.7); EOSINOPHILS % (AUTO) 4.6 % (0.0-6.0); HEMATOCRIT 22 % (39-51); HEMOGLOBIN 7.3 g/dL (13.5-17.5); LYMPHOCYTES # (AUTO) 0.4 /CMM (0.8-4.8); LYMPHOCYTES % (AUTO) 5.2 % (20.0-44.0); MEAN CORPUSCULAR HEMOGLOBIN 33 PG (26.0-33.0); MEAN CORPUSCULAR HGB CONC 33 g/dl (31.0-36.0); MEAN CORPUSCULAR VOLUME 99 fL (80-96); MONOCYTES # (AUTO) 0.4 /CMM (0.1-1.30); NEUTROPHILS # (AUTO) 6.4 /CMM (1.8-8.9); NEUTROPHILS % (AUTO) 84.5 % (43.0-81.0); PLATELET COUNT (AUTO) 140 /CMM (150-450); RDW COEFFICIENT OF VARIATION 21.6 (11.5-15.0); RED BLOOD CELL COUNT(AUTO) 2.23 MIL/uL (4.5-6.0); WHITE BLOOD COUNT (AUTO) 7.6 K/uL (4.3-11.0)
[2017-04-20 07:34] LABS: CARBON DIOXIDE 26 mmol/L (21-32); CHLORIDE 115 mmol/L (98-107); CREATININE 1.6 mg/dL (0.6-1.3); GLUCOSE 84 mg/dL (74-106); POTASSIUM 3.6 mmol/L (3.5-5.1); SODIUM SERUM 148 mmol/L (136-145); UREA NITROGEN, BLOOD 31 mg/dL (7-18)
[2017-04-20] MEDS: ACETYLCYSTEINE 10% SOLN 400 MG/4 ML VIAL NEB SCH ×3 (07:35→22:47)
[2017-04-20 08:00] VITALS: BP 117/70
[2017-04-20] MEDS: DOCUSATE SODIUM LIQ 100 MG/10 ML UDC GT SCH (08:22)
[2017-04-20] MEDS: LACTOBACILLUS RHAMNOSUS GG 1 EACH CAP.SPRINK GT SCH ×2 (08:23→17:03)
[2017-04-20] MEDS: HYDROGEL DRESSING 90 GM TUBE TP SCH (08:24)
[2017-04-20] MEDS: CLOTRIMAZOLE 1% 15 GM TUBE TP SCH ×2 (08:25→17:04)
--- NOTE | 2017-04-20 08:30 | NUR ---
RN NOTES SEEN BY EL MORAN WITH NEW ORDERS MADE. NOTED AND CARRIED OUT.
[2017-04-20 16:00] VITALS: BP 145/64
[2017-04-20] MEDS: Z GUARD REMEDY 2 OZ OINT TP PRN (17:05)
[2017-04-20] MEDS: PANTOPRAZOLE 40 MG VIAL IV SCH (17:07)
--- NOTE | 2017-04-20 19:00 | NUR ---
RN NOTES PATIENT IN BED AWAKE, NON VERBAL. NO SOB NOTED. NO ACUTE DISTRESS NOTED. BREATHING UNLABORED. IV ACCESS PATENT AND INTACT, NO REDNESS OR SWELLING NOTED. NGT IN PLACE. ENGLISH CATHETER INTACT, DRAINING WELL. NO SEDIMENTS NOTED. DUE MEDICATIONS GIVEN, NO ASE NOTED. NEEDS ATTENDED AND ANTICIPATED. HOB ELEVATED. SAFETY MEASURES IN PLACE. CALL LIGHT WITHIN REACH. SITTER AT BEDSIDE. ENDORSED TO NIGHT NURSE FOR CONTINUITY OF CARE.
--- NOTE | 2017-04-20 19:25 | NUR ---
MS/CARE PROCESS MANAGER; RECEIVED PT'S REPORTS FROM THE DAY SHIFT RN FOR CONTINUITY OF CARE. AT THIS TIME PT IN BED AWAKE WITH EYES OPENED BUT NON VERBAL. HOB ELEVATED . ON KCI MATTRESS ON. WITH DVT PUMP ON BOTH LOWER LEGS. HAS PICC LINE ON SHORTY INTACT. HAS NGT ON LT NOSTRIL WITH FEEDING ON PROGRESS NOVASOURCE AT 20 ML /HOUR. NGT PATENT NO RESIDUAL NOTED. WITH FC INTACT 20 ML YELLOW URINE IN THE DRAINAGE BAG. BREATHING NON LABORED . WITH O2 4L NC ON. BREATHING SOUND WITH RHONCHI. NOTED WITH OCC COUGH. BED ON LOWER POSITION AND LOCKED FOR SAFETY. SIDE RAILS ARE UP X 4 FOR SAFETY. WILL CONTINUE TO MONITOR. CALL LIGHT WITHIN REACH. SITTER PRESENT.
[2017-04-20 20:00] VITALS: BP 139/61
--- NOTE | 2017-04-20 20:45 | NUR ---
MS/HEAD MVA REACTOR OPERATOR; CHARGE NURSE MADE ROUNDS AT THIS TIME AND SAW THE PT.
--- NOTE | 2017-04-20 23:00 | NUR ---
MS/FORESTRY FIRE AID; TURNED AND REPOSITIONED TO LT SIDE WITH PILLOW TO HIS BACK, BOTH ARMS AND BOTH HEELS OFFLOADED. HOB ARE ELEVATED. NGT FEEDING RESUMED. FC INTACT AND SO WITH THE PICC LINE ON SHORTY. WILL CONTINUE TO MONITOR.
--- NOTE | 2017-04-20 23:30 | NUR ---
MS/PLOW MECHANIC; NOTED PT SLEEPING AT THIS TIME. BREATHING NON LABORED. WITH O2 4 L NC ON. WILL MONITOR.
--- NOTE | 2017-04-21 | NUR ---
MS/CUPOLA PATCHER; SLEEPING AT THIS TIME.BREATHING NON LABOREDD.
--- NOTE | 2017-04-21 02:00 | NUR ---
MS/CUSTOMER SALES DISTRIBUTOR; SLEEPING AT THIS TIME. BREATHING NON LABORED. WITH OCC. COUGH TRIED TO SUCTIONED ORALLY BUT PT REFUSED HE CLOSED HIS MOUTH.
[2017-04-21] MEDS: METOCLOPRAMIDE HCL 10 MG/10 ML UDC GT SCH ×4 (04:02→22:34)
--- NOTE | 2017-04-21 05:30 | NUR ---
MS/ASSISTANT TO THE DEAN; PT AWAKE AT THIS TIME. AM CARE DONE. GOWN AND BED LINENS CHANGED. TURNED AND REPOSITIONED . PT WITH SMEAR OF BLACKISH BM X 1. SACRAL WOUND TREATMENT DONE.
--- NOTE | 2017-04-21 05:30 | NUR ---
MS/PHLEBOTOMY SERVICES TECHNICIAN; PT AWAKE AT THIS TIME. AM CARE DONE. TREATMENT S TO SACRAL WOUND DONE. ALSO TO PERINEAL AREA. HOSPITAL GOWN AND BED LINENS CHANGED. REPOSITIONED TO SUPINE POSITION.
[2017-04-21] MEDS: RENAL NOVASOURCE 1,000 ML BOTTLE GT PRN (05:57)
--- NOTE | 2017-04-21 06:00 | NUR ---
MS/ASSEMBLY LINE UPHOLSTERER; PT'S BED SCALE NOT WORKING. WILL ENDORSE TO THE DAY SHIFT NURSE FOR DAILY WT.
--- NOTE | 2017-04-21 06:44 | NUR ---
MS/AUTOMOBILE SERVICE ADVISOR; DID TRY TO GIVE ORAL CARE BUT PT KEPT CLOSING HIS MOUTH. WILL ENDORSE TO THE DAY SHIFT NURSE TO FOLLOW UP. AT THIS TIME NGT FEEDING ON PROGRESS. SLEPT FAIRLY. REMAINED NON VERBAL BUT WITH OPENED EYES. WHEN I TALK TO THE PT HE JUST WITH EYE CONTACT AND LOOK AT YOU. WILL CONTINUE TO MONITOR. SITTER PRESENT AT ALL TIMES. WILL ENDORSE TO THE DAY SHIFT NURSE.
[2017-04-21 07:01] LABS: CALCIUM, SERUM 9.9 mg/dL (8.5-10.1); CARBON DIOXIDE 27 mmol/L (21-32); CHLORIDE 115 mmol/L (98-107); CREATININE 1.6 mg/dL (0.6-1.3); GLUCOSE 86 mg/dL (74-106); POTASSIUM 3.5 mmol/L (3.5-5.1); SODIUM SERUM 149 mmol/L (136-145); UREA NITROGEN, BLOOD 28 mg/dL (7-18)
--- NOTE | 2017-04-21 07:31 | NUR ---
MS RN OPENING NOTES RECEIVED PATIENT IN STABLE CONDITION. IN NO APPARENT DISTRESS. BEDSIDE RAILS ARE UPX2. BED IS LOCKED AND LOWERED. CALL LIGHT IS WITHIN REACH. IV LINE IS INTACT AND PATENT. WILL CONTINUE TO MONITOR.
[2017-04-21] MEDS: ACETYLCYSTEINE 10% SOLN 400 MG/4 ML VIAL NEB SCH ×3 (07:35→22:53)
[2017-04-21 08:00] VITALS: BP 122/46
[2017-04-21] MEDS: AMIODARONE HCL 200 MG TABLET GT SCH ×2 (09:00→21:27)
[2017-04-21] MEDS: SUCRALFATE 1 G/10 ML UDC GT SCH ×4 (10:39→21:27)
[2017-04-21] MEDS: LACTOBACILLUS RHAMNOSUS GG 1 EACH CAP.SPRINK GT SCH ×2 (10:40→16:41)
[2017-04-21] MEDS: DOCUSATE SODIUM LIQ 100 MG/10 ML UDC GT SCH (10:40)
[2017-04-21] MEDS: CLOTRIMAZOLE 1% 15 GM TUBE TP SCH ×2 (10:54→16:42)
[2017-04-21] MEDS: HYDROGEL DRESSING 90 GM TUBE TP SCH (10:54)
[2017-04-21 12:00] VITALS: BP 139/58
[2017-04-21] MEDS ORDERED: RENAL NOVASOURCE 1,000 ML BOTTLE GT PRN (14:30)
[2017-04-21 16:00] VITALS: BP 136/61
[2017-04-21] MEDS: PANTOPRAZOLE 40 MG VIAL IV SCH (16:42)
--- NOTE | 2017-04-21 18:28 | NUR ---
MS RN CLOSING NOTES PATIENT IS RESTING IN BED IN NO APPARENT DISTRESS. BEDSIDE RAILS ARE UPX2. BED IS LOCKED AND LOWERED. CALL LIGHT IS WITHIN REACH. ALL NEEDS WERE MET. NG TUBE FEEDING RUNNING AT 40ML/HR. IV LINE IS PATENT AND INTACT. WILL ENDORSE CARE TO COMMISSIONER OF INTERNAL REVENUE NURSE FOR IZAIAH.
--- NOTE | 2017-04-21 19:00 | NUR ---
MS HOUSING DIRECTOR INITIAL NOTES RECEIVED REPORT FROM AM NURSE RAFAEL/RN AND SEEN PT IN BED ON SEMI FOWLERS POSITION WITH NGT ON HIS LEFT NARES NOVASOURCE AT 40ML/HR , PATENT AND INTACT WITH 1ML RESIDUAL NOTED. NO ASPIRATION AT THIS TIME. HE'S ON KCI MATTRESS WITH DVT PUMP ON BOTH BILATERAL LOWER LEGS. ENGLISH TO GRAVITY WITH CLEAR YELLOW OUTPUT NOTED AT THIS TIME . BREATHING EVEN AND NON -LABORED WITHOUT ANY ACUTE DISTRESS NOTED . SKIN WARM AND DRY TO TOUCH. KEPT HIM WARM AND COMFORTABLE AT ALL TIMES. WILL CONTINUE CLOSELY MONITORING FOR PT SAFETY.
[2017-04-21 20:00] VITALS: BP 147/62
--- NOTE | 2017-04-21 21:00 | NUR ---
TIBCO DEVELOPER/NOTES REPOSITION PT ON SITTING POSITION AND CHECKED THE NGT PLACEMENT, BEFORE FLUSH WITH WATER . SITE PATENT AND POSITIVE PLACEMENT NOTED. FLUSHED WITH 250ML OF WATER . NO ASPIRATION NOTED. ROUTINE MEDS GIVEN WELL. KEPT HIM HOB ELEVATED AT ALL TIMES . WILL CONTINUE MONITORING.
[2017-04-21] MEDS ORDERED: ACETYLCYSTEINE 20% SOLN 800 MG/4 ML VIAL ONE (22:48)
--- NOTE | 2017-04-21 23:09 | NUR ---
MS SCALLOP BINDER NOTED BREATHING TREATMENT ADMINISTERED BY RT AND ASKING HIM ALSO TO DO DEEP SUCTION WELL FOR PATIENT COMFORT. HOLD NGT FEEDING FOR A WHILE FOR ASPIRATION PRECAUTION. NO SIGNS OF ANY ACUTE DISTRESS NOTED . WILL CONTINUE MONITORING.
--- NOTE | 2017-04-22 02:20 | NUR ---
MS TONIO NOTES PT SLEEPING COMFORTABLY IN BED WITHOUT ANY ACUTE DISTRESS NOTED, RESPIRATION EVEN AND UNLABORED. NGT FEEDING CLAMPED AT THIS TIME FOR PEG TUBE PLACEMENT TODAY. REPOSITION AND KEPT HIM WARM AND COMFORTABLE AT ALL TIMES. CONTINUE CLOSELY MONITORING.
[2017-04-22] MEDS: METOCLOPRAMIDE HCL 10 MG/10 ML UDC GT SCH ×4 (04:00→21:55)
[2017-04-22] MEDS: Z GUARD REMEDY 2 OZ OINT TP PRN (04:30)
[2017-04-22] MEDS: HYDROGEL DRESSING 90 GM TUBE TP PRN (04:30)
--- NOTE | 2017-04-22 04:30 | NUR ---
MS GRINDER GEAR NOTES BED BATH RENDERED WITH THE HELPED OF AXEL MATHEWS, NO SIGNS OF ANY ACUTE DISTRESS NOTED. NGT STILL PLACE AND PATENT. WOUND TREATMENT ALSO DONE WELL PHOTO TAKEN. SUCTION NEEDED. NPO AT THIS TIME BECAUSE PT GOING FOR PEG PLACEMENT. REPOSITION HIM ON SEMI FOWLERS AND KEPT HIM WARM AND COMFORTABLE AT ALL TIMES. WILL CONTINUE MONITORING.
--- NOTE | 2017-04-22 07:02 | NUR ---
MS SOLE EDGE INKER MACHINE CLOSING NOTES PT BACK TO SLEEP AFTER MORNING BED BATH DONE, STABLE PÉREZ THE NIGHT . ALL DUE MEDS GIVEN AND SUCTION NEEDED. BREATHING EVEN AND NON-LABORED. ON SEMI FOWLERS POSITION WITH SIDE RAILS X2 UP AND BED IN LOW AND LOCK. NGT STILL PATENT AND INTACT. ENGLISH DRAINING WELL. PICCLINE ON LEFT UPPER ARM PATENT AND INTACT. KEPT HIM WARM AND COMFORTABLE AT ALL TIMES. SITTER AT THE BEDSIDE FOR SAFETY. WILL ENDORSE TO AM NURSE FOR CONTINUITY OF CARE.
[2017-04-22 07:08] LABS: BASOPHILS # (AUTO) 0.1 /CMM (0.0-0.2); BASOPHILS % (AUTO) 0.8 % (0.0-2.0); EOSINOPHILS # (AUTO) 0.2 /CMM (0.0-0.7); EOSINOPHILS % (AUTO) 2.8 % (0.0-6.0); HEMATOCRIT 23 % (39-51); HEMOGLOBIN 7.4 g/dL (13.5-17.5); LYMPHOCYTES # (AUTO) 0.9 /CMM (0.8-4.8); LYMPHOCYTES % (AUTO) 11.5 % (20.0-44.0); MEAN CORPUSCULAR HEMOGLOBIN 32 PG (26.0-33.0); MEAN CORPUSCULAR HGB CONC 32 g/dl (31.0-36.0); MEAN CORPUSCULAR VOLUME 100 fL (80-96); MONOCYTES # (AUTO) 0.4 /CMM (0.1-1.30); MONOCYTES % (AUTO) 5.5 % (2.0-12.0); NEUTROPHILS # (AUTO) 6.1 /CMM (1.8-8.9); NEUTROPHILS % (AUTO) 79.4 % (43.0-81.0); PLATELET COUNT (AUTO) 297 /CMM (150-450); RDW COEFFICIENT OF VARIATION 21.3 (11.5-15.0); RED BLOOD CELL COUNT(AUTO) 2.31 MIL/uL (4.5-6.0); WHITE BLOOD COUNT (AUTO) 7.7 K/uL (4.3-11.0)
[2017-04-22] MEDS: SUCRALFATE 1 G/10 ML UDC GT SCH ×4 (07:30→21:51)
--- NOTE | 2017-04-22 07:30 | NUR ---
PT RECEIVED RESTING COMFORTABLY IN BED WITH EYES CLOSED. NO S/S OR C/O PAIN OR DISTRESS NOTED. SIDE RAILS UP X2. CALL LIGHT LEFT WITHIN REACH. WILL CONTINUE PLAN OF CARE.
[2017-04-22] MEDS: ACETYLCYSTEINE 10% SOLN 400 MG/4 ML VIAL NEB SCH ×3 (07:35→22:57)
[2017-04-22 08:00] VITALS: BP 126/56
[2017-04-22] MEDS ORDERED: ANESTHESIA TRAY IN PYXIS 1 EA TRAY MC ONE (12:13)
[2017-04-22] MEDS: DOCUSATE SODIUM LIQ 100 MG/10 ML UDC GT SCH (13:56)
[2017-04-22] MEDS: LACTOBACILLUS RHAMNOSUS GG 1 EACH CAP.SPRINK GT SCH ×2 (13:56→17:46)
[2017-04-22] MEDS: CLOTRIMAZOLE 1% 15 GM TUBE TP SCH ×2 (13:57→17:47)
[2017-04-22] MEDS: AMIODARONE HCL 200 MG TABLET GT SCH ×2 (13:57→21:51)
[2017-04-22] MEDS: HYDROGEL DRESSING 90 GM TUBE TP SCH (13:57)
[2017-04-22] MEDS: PANTOPRAZOLE 40 MG VIAL IV SCH (17:46)
--- NOTE | 2017-04-22 18:53 | NUR ---
CHANGE OF SHIFT REPORT PT RESTING COMFORTABLY IN BED WITH EYES CLOSED. NO S/S OR C/O PAIN OR DISTRESS NOTED. SIDE RAILS UP X2, CALL LIGHT LEFT WITHIN REACH. PT KEPT CLEAN, DRY, AND COMFORTABLE. SITTER AT BEDSIDE. NO SIGNIFICANT CHANGES SINCE PREVIOUS SHIFT. WILL GIVE REPORT TO GERALDO RN.
--- NOTE | 2017-04-22 19:30 | NUR ---
MS TONIO INITIAL NOTES RECEIVED REPORT FROM AM NURSE LALA WHILE CHECKING THE PATIENT TOO. PT IN BED ON SEMI FOWLERS POSITION WITH O2 AT 4 LITERS WITH HUMIDIFIER. BREATHING EVEN AND NON-LABORED NOT IN ANY ACUTE DISTRESS NOTED. AROUSES TO TOUCH AND TO HIS NAME BUT STILL NON-VERBAL . PER AM NURSE PT STILL NPO EXCEPT MEDS. SKIN WARM AND DRY TO TOUCH. ENGLISH DRAINING WITH YELLOW OUTPUT NOTED . REPOSITION AND KEPT HIM WARM AND COMFORTABLE AT ALL TIMES. WILL CONTINUE CLOSELY MONITORING FOR PT SAFETY.
[2017-04-22 20:05] VITALS: BP 123/61
--- NOTE | 2017-04-23 | NUR ---
MS CRUISE COUNSELOR NOTES PT SLEEPING COMFORTABLY IN BED WITHOUT ANY ACUTE DISTRESS NOTED. RESPIRATION EVEN AND UN-LABORED. SUCTIONED NEEDED. NO ASPIRATION NOTED. REPOSITION HIM FOR COMFORT. WILL CONTINUE TO MONITOR.
[2017-04-23] MEDS: METOCLOPRAMIDE HCL 10 MG/10 ML UDC GT SCH ×3 (05:10→16:22)
[2017-04-23] MEDS: HYDROGEL DRESSING 90 GM TUBE TP PRN (05:10)
[2017-04-23] MEDS: Z GUARD REMEDY 2 OZ OINT TP PRN (05:11)
--- NOTE | 2017-04-23 05:37 | NUR ---
MS ELECTRONIC RESOURCES LIBRARIAN NOTES PT WOKE UP LOOKING AT ME BUT STILL NO VERBAL RESPONSE. BREATHING EVEN AND NON-LABORED. NO ASPIRATION NOTED. BED BATH RENDERED WELL HIS WOUND TREATMENT ORDERED. REPOSITION FOR COMFORT. PEG TUBE SITE PATENT AND INTACT COVERED WITH ABDOMINAL BINDER G-TUBE FEEDING NOVA SOURCE STARTED AT 40ML/HR ORDERED. KEPT HIM ON SEMI FOWLERS POSITION WITH SIDE RAILS X3 UP AND BED IN LOW AND LOCK IN POSITION. DUE MEDS GIVEN. KEPT HIM WARM AND COMFORTABLE AT ALL TIMES. NO MORE EDEMA NOTED ON BOTH LOWER LEGS DVT APPLIED. WILL CONTINUE MONITORING.
--- NOTE | 2017-04-23 07:05 | NUR ---
MS MARINE MECHANIC CLOSING NOTES PT BACK TO REST AFTER BED BATH DONE WELL HIS WOUND TREATMENT. G-TUBE FEEDING TOLERATED WELL , NO ASPIRATION NOTED. PICC LINE ON HIS LEFT UPPER ARM PATENT AND INTACT. ENGLISH TO GRAVITY. ABDOMEN WHERE PEG TUBE SITE COVERED BY THE ABDOMINAL BINDER. ALL DUE MEDS GIVEN AND ALL NEEDS MET. STABLE PÉREZ THE NIGHT AND SLEPT WELL. KEPT HIM WARM AND COMFORTABLE AT ALL TIMES. PLACE CALL LIGHT AT REACH. BED ALARM SET FOR SAFETY.
--- NOTE | 2017-04-23 07:30 | NUR ---
RECEIVED PT. THIS AM NON VERBAL,QUIET,APPEARS COMFORTABLE. TUBE FEED. INFUSING.F/C TO GRAVITY DRAINAGE WITH GOOD OUTPUT.VS STABLE.
[2017-04-23] MEDS: ACETYLCYSTEINE 10% SOLN 400 MG/4 ML VIAL NEB SCH ×2 (07:35→15:08)
[2017-04-23 08:00] VITALS: BP 104/56
[2017-04-23] MEDS ORDERED: Renal Novasource GT (08:57)
[2017-04-23] MEDS ORDERED: SUCR1ORA6 GT (08:57)
[2017-04-23] MEDS: AMIODARONE HCL 200 MG TABLET GT SCH (09:00)
[2017-04-23] MEDS: HYDROGEL DRESSING 90 GM TUBE TP SCH (10:34)
[2017-04-23] MEDS: CLOTRIMAZOLE 1% 15 GM TUBE TP SCH ×2 (10:34→17:14)
[2017-04-23] MEDS: SUCRALFATE 1 G/10 ML UDC GT SCH ×3 (10:35→17:09)
[2017-04-23] MEDS: LACTOBACILLUS RHAMNOSUS GG 1 EACH CAP.SPRINK GT SCH ×2 (10:35→17:09)
[2017-04-23] MEDS: DOCUSATE SODIUM LIQ 100 MG/10 ML UDC GT SCH (10:35)
--- NOTE | 2017-04-23 15:00 | NUR ---
PT. FIGHTING RN WITH ATTEMPT OF PHOTO TAKING-SO PHOTOS NOT DONE FOR DC PHOTOS.
--- NOTE | 2017-04-23 15:00 | NUR ---
SON CALLING SEVERAL TIMES TO CHECK ON PT. TO CHECK STATUS. LEFT MESSAGE FOR SON REGARDING DISCHARGE.
[2017-04-23 16:00] VITALS: BP 118/57
--- NOTE | 2017-04-23 16:10 | NUR ---
RN CALLING FACILITY TO GIVE PT. REPORT. TALKED TO
[2017-04-23] MEDS: PANTOPRAZOLE 40 MG VIAL IV SCH (17:09)
--- NOTE | 2017-04-23 18:40 | NUR ---
AMBULANCE HERE REPORT TO GLOBAL RECRUITER.PT. TRANSFERRED TO FACILITY VIA AMBULANCE.F/C IN PLACE,PICC LINE IN PLACE. ABD. BINDER ON G-TUBE SITE CLEAN AND DRY.
== END 2017-04-23 18:56 | DRG 871 ==
LOC: ER 00:08 → ICU 01:19 → TELE 04-15 12:48 → MED 04-17 20:31
PROC: 5A09357 Assistance with Respiratory Ventilation, Less than 24 Consecutive Hours, Continuous Positive Airway Pressure (ICD-10-PCS; 2017-04-08)
PROC: 5A09457 Assistance with Respiratory Ventilation, 24-96 Consecutive Hours, Continuous Positive Airway Pressure (ICD-10-PCS; principal; 2017-04-09)
PROC: 02HV33Z Insertion of Infusion Device into Superior Vena Cava, Percutaneous Approach (ICD-10-PCS; 2017-04-09)
PROC: B548ZZA Ultrasonography of Superior Vena Cava, Guidance (ICD-10-PCS; 2017-04-09)
PROC: 30233N1 Transfusion of Nonautologous Red Blood Cells into Peripheral Vein, Percutaneous Approach (ICD-10-PCS; 2017-04-11)
PROC: 0DJ08ZZ Inspection of Upper Intestinal Tract, Via Natural or Artificial Opening Endoscopic (ICD-10-PCS; 2017-04-22)
PROC: 0DH63UZ Insertion of Feeding Device into Stomach, Percutaneous Approach (ICD-10-PCS; 2017-04-22 12:00)
DX: A41.9 Sepsis, unspecified organism (principal); J96.01 Acute respiratory failure with hypoxia; J69.0 Pneumonitis due to inhalation of food and vomit; N17.0 Acute kidney failure with tubular necrosis; E43 Unspecified severe protein-calorie malnutrition; G93.41 Metabolic encephalopathy; R65.21 Severe sepsis with septic shock; J90 Pleural effusion, not elsewhere classified; K22.6 Gastro-esophageal laceration-hemorrhage syndrome; K29.01 Acute gastritis with bleeding; K27.4 Chronic or unspecified peptic ulcer, site unspecified, with hemorrhage; L89.153 Pressure ulcer of sacral region, stage 3; E87.2 Acidosis; E87.0 Hyperosmolality and hypernatremia; N18.4 Chronic kidney disease, stage 4 (severe); N39.0 Urinary tract infection, site not specified; Z68.1 Body mass index [BMI] 19.9 or less, adult; I13.0 Hypertensive heart and chronic kidney disease with heart failure and stage 1 through stage 4 chronic kidney disease, or unspecified chronic kidney disease; N13.6 Pyonephrosis; D62 Acute posthemorrhagic anemia; D69.59 Other secondary thrombocytopenia; D53.9 Nutritional anemia, unspecified; E78.5 Hyperlipidemia, unspecified; E87.5 Hyperkalemia; F03.90 Unspecified dementia, unspecified severity, without behavioral disturbance, psychotic disturbance, mood disturbance, and anxiety; F32.9 Major depressive disorder, single episode, unspecified; F41.9 Anxiety disorder, unspecified; I48.0 Paroxysmal atrial fibrillation; Z66 Do not resuscitate; Z87.440 Personal history of urinary (tract) infections; N40.1 Benign prostatic hyperplasia with lower urinary tract symptoms; K21.9 Gastro-esophageal reflux disease without esophagitis; B95.2 Enterococcus as the cause of diseases classified elsewhere; N20.0 Calculus of kidney; D69.6 Thrombocytopenia, unspecified; R74.0 Nonspecific elevation of levels of transaminase and lactic acid dehydrogenase [LDH]; K20.9 Esophagitis, unspecified; D50.0 Iron deficiency anemia secondary to blood loss (chronic); F20.9 Schizophrenia, unspecified; I50.9 Heart failure, unspecified
CPT/HCPCS: 31720; 36415; 36600; 43246; 71045-TC; 74018; 76770-TC; 80048-TC; 80053-TC; 80061-TC; 80076-TC; 80202-TC; 81000-TC; 82088; 82248-TC; 82272-TC; 82570-TC; 82803-TC; 83605-TC; 83735-TC; 83880; 83935-TC; 84100-TC; 84133-TC; 84155-TC; 84244; 84300-TC; 84439-TC; 84443-TC; 84481; 84484-TC; 85025-TC; 85730-TC; 86022; 86850-TC; 86921-TC; 87040-TC; 87081-TC; 87086-TC; 87186-TC; 92526; 92611-TC; 94660; 94799-TC; 99082-TC; A4216; A4606; A6248; A6253; A6403; C1751; C9113; J0282; J0456; J0696; J1450; J1650; J2020; J2185; J2248; J2370; J2405; J2543; J3370; J3475; J3480; J3490; J7030; J7040; J7050; J7060; J7070; J8597; P9016-BL; Z7610